=== PATIENT | female | born 1925 | race Caucasian/White ===

== ENCOUNTER 2016-10-15 10:44 | Emergency (ER) | payer MEDICARE ==
[~2016-10-15] VITALS: Ht 162.6 cm; Wt 68.2 kg
[~2016-10-15 10:44] MED LIST: ASPI-628 PO; ATRV10T PO; CITA20TA11 PO; DONE5TAB4 PO; GLPZ5T PO; HYDR-4003 PO; HYDR25TA4 PO; METO-274 PO; PRE20 PO; WARF2.5T82 PO; ZIT250 PO
[2016-10-15 10:48] VITALS: BP 119/74; PULSE 104; RESP 20; O2SAT 95
--- NOTE | 2016-10-15 11:11 | ED.REPORT ---
HPI-Dyspnea / Wheezing Date of Service Oct 15, 2016 ED Provider: Frank Johnson MD Patient is an 89 year old female with a history of reactive airway disease, atrial fibrillation, and hypertension who presents to the ED complaining of shortness of breath onset a week ago. Associated symptoms include nausea, cough with yellow sputum, fatigue, sore throat, rhinorrhea, and ear pain. She denies chest pain, blood in the sputum, or vomiting. The patient reports that she has been using a nebulizer inhaler twice a day for the past two months. Per the patient's son, the patient has had more labored breathing and her symptoms are similar to when she had pneumonia last year. Patient is currently on anticoagulants. Nursing Notes Stated Complaint: BREATING Chief Complaint: Respiratory Complaints Nursing Notes Reviewed: Yes Allergies: Coded Allergies: Contrast Media (Verified Allergy, Unknown, 07/31/15) Penicillins (Verified Allergy, Unknown, 07/31/15) Sulfa (Sulfonamide Antibiotics) (Verified Allergy, Unknown, 07/31/15) aspirin (Verified Allergy, Unknown, 07/31/15) adult only-able to take baby aspirin iodine (Verified Allergy, Unknown, 12/06/14) lisinopril (Verified Allergy, Unknown, 12/06/14) Scheduled Aspirin (Aspir 81) 81 Mg Tablet.dr 81 MG PO DAILY Atorvastatin (Lipitor) 10 Mg Tab 20 MG PO DAILY Azithromycin (Zithromax) 250 Mg Tablet 250 MG PO DAILY Azithromycin (Zithromax (Z-Daniel)) 250 Mg Tablet 250 MG PO DIRECTED Take two tablets by mouth on day 1, then take one tablet daily on days 2 through 5. Citalopram (Citalopram) 20 Mg Tablet 20 MG PO DAILY Donepezil (Aricept) 5 Mg Tablet 5 MG PO DAILY Glipizide (Glipizide) 5 Mg Tablet 2.5 MG PO DAILY Hydrochlorothiazide (Hydrochlorothiazide) 25 Mg Tablet 25 MG PO DAILY Metoprolol Succinate ER (Metoprolol Succinate ER) 100 Mg Tab.er.24h 100 MG PO DAILY Prednisone (PredniSONE) 20 Mg Tablet 40 MG PO DAILY Prednisone (PredniSONE) 20 Mg Tablet 60 MG PO DAILY Warfarin Sodium (Warfarin Sodium) 2.5 Mg Tablet 1.25 MG PO [id number] Scheduled PRN Hydrocodone-Acetaminophen 5-325 mg (Hydrocodone-Acetaminophen 5-325 mg) 1 Each Tablet 1 EACH PO Q4 PRN PRN For Pain Promethazine DM Syrup (Promethazine DM Syrup) 118 Ml Syrup 5 ML PO HS PRN PRN For Cough Warfarin Sodium (Warfarin Sodium) 2.5 Mg Tablet 2.5 MG PO MONDAY PRN PRN Afib General Time Seen by MD: 11:06 Chief Complaint Shortness of breath Hx Obtained From: Patient, Son Arrived By: Walk-in Sudden in Onset?: No Onset Occurred: 1 week ago Symptom Duration: Since onset Recent Healthcare: No recent hospitalization, Recent doctor visit Similar Sx Previous: Yes Past Medical History Past Medical History hypothyroidism RA cataracts Reports: Congestive heart failure, Diabetes mellitus, Hyperlipidemia, Hypertension Reports: Atrial fibrillation, Depression, Urinary tract infection Past Surgical History Colon Reports: Hysterectomy Reports: Carpal tunnel Smoking History Former Smoker Social History Alcohol Use: "Social" Drug Use: Denies drug use Other Social History: Good social support, Lives in jail Ambulatory Status Walker Review of Systems Constitutional: Reports: Fatigue, Denies: Fever Ears / Nose / Throat: Reports: Earache bilateral, Sore throat Respiratory: Reports: Prod cough, yellow, Shortness of breath, Wheezing, Denies: Prod cough, bloody Cardiovascular: Denies: Chest pain Complete sys rev & neg: except as marked. GI: Reports: Nausea, Denies: Vomiting Physical Exam Initial Vital Signs Vital Signs (First) Date Time Temp Pulse Resp B/P Pulse Ox O2 Delivery O2 Flow Rate FiO2 10/15/16 10:48 36.7 104 20 119/74 95 Room Air Initial VS: Reviewed General/Constitutional: Awake, Alert, No acute distress Neck: Atraumatic, Supple, Full range of motion Respiratory / Chest: Atraumatic, No respiratory distress coarse breath sounds and wheezing bilaterally Cardiovascular: Heart rate NL, Regular rhythm, Heart sounds NL, No murmurs ENT: Atraumatic, Airway patent, Mucous membranes moist, Pharynx NL Abdomen: Atraumatic, Soft, Non-tender Back: Atraumatic, Full range of motion Lower Extremity / Pelvis / MS: Atraumatic, Full range of motion Skin: Atraumatic, Color NL, No rash, Warm, Dry Neurologic: Oriented X3, Speech NL, No motor deficits, No sensory deficits Head / Eyes: Atraumatic, Normocephalic, PERRL, EOMI Upper Extremity / MS: Atraumatic, Full range of motion Psychiatric: Affect NL, Mood NL Interpretation & Diagnostics ECG Interpretation ECG Interpretation: atrial fibrillation rate [address] changes Time: 11:51 Interpreted by: ED physician X-Ray Chest Interpretation Chest Xray Interpretation: IMPRESSION: Suspect COPD and smoking history. A source of cough is not seen. Moderately severe mid thoracic compression fracture is stable over time from mid last year. Dictated by: Shravan Salmon M.D. on 10/15/2016 at 13:02 Approved by: Shravan Salmon M.D. on 10/15/2016 at 13:03 View: Portable, 1 view Interpretation / Wet Read by: Interpret - Radiologist Re-Eval/Medical Decision Med Decision/Clinical Course 89-year-old female history of atrial fibrillation presenting with cough and congestion times one week. Chest x-ray is clear. Vital signs are stable. She was wheezing on exam which improved with nebulizer. She does have history of reactive airway disease and uses nebulizer at home. Patient felt much better. She did not want any labs. Declines labs. Patient be treated for bronchitis with steroids and Z-Daniel. Cough suppressant given - crisis counselor no driving or alcohol with cough suppressant. Return precautions given. Recommend follow up with primary doctor on Monday. Source of Hx: Old records Re-Evaluation/Progress : Time of Eval: 13:06 Re-Evaluation/Progress Note: Discussed lab results and treatment after discharge. The patient understands and agrees to the plan for discharge. All questions were addressed. Counseled Regarding: Diagnosis, Lab results, Need for follow-up, When/why to return to ED Discharge & Departure Impression: Primary Impression: Acute bronchitis Bronchitis organism: unspecified organism Qualified Code: J20.9 - Acute bronchitis, unspecified Disposition: Home Discharge Condition All VS Reviewed: Yes Condition: Stable Patient Instructions: Acute Bronchitis (ED) Additional Instructions: Take Z-pack, Prednisone and Azithromycin as prescribed. The medication may take a few hours to help but you should start feeling some relief. All of your labs looked normal. Follow up with your primary care physician next week. Please return to the emergency department if you develop any new or worsening symptoms including difficulty breathing, vomiting, nausea, or coughing up blood. Referrals: Lonnie Kelley DO (PCP) Scribe Attestation Portions of this note were transcribed by Dr. Elizabeth Rangel personally performed the history, physical exam and medical decision-making; I reviewed and confirmed the accuracy of the information in the transcribed note. Signed by: Leticia Sanchez, 10/15/16 and [id number]. copies to: Lonnie Kelley Ben M MD Oct 15, 2016 11:11 Edna De La Torre Oct 15, 2016 11:27
[2016-10-15] MEDS ORDERED: Albuterol-Ipratropium 3 mL Inhalation Solution NEB ONE (11:30)
[2016-10-15] MEDS ORDERED: predniSONE 20 mg Tablet PO ONE (11:30)
[2016-10-15 11:54] VITALS: PULSE 76; RESP 20; O2SAT 97
--- NOTE | 2016-10-15 13:04 | DRSVH ---
PROCEDURE: X-RAY CHEST, TWO VIEWS ([id number]) INDICATIONS: COUGH TECHNIQUE: 2 views of the chest were acquired. COMPARISON: [facility], CR, XR CHEST 1VW (PORTABLE), 05/31/2016, 16:30. [facility], CR, XR CHEST 2VW, 12/22/2015, 10:00. FINDINGS: Surgical changes and devices: None. Lungs and pleura: No pleural effusions or pneumothorax. Lungs are abnormal with a chronic interstit ial prominence and large lung volumes likely reflecting COPD. Mediastinum: Mediastinal contours are normal. Heart size is normal. Bones and chest wall: No suspicious bony abnormalities and there is a mid thoracic previously presen t moderately severe compression fracture. Soft tissues appear unremarkable. IMPRESSION: Suspect COPD and smoking history. A source of cough is not seen. Moderately severe mid thoracic compression fracture is stable over time from mid last year. Dictated by: Shravan Salmon M.D. on 10/15/2016 at 13:02 Approved by: Shravan Salmon M.D. on 10/15/2016 at 13:03
[2016-10-15] MEDS ORDERED: D-ME118S8 PO (13:12)
[2016-10-15] MEDS ORDERED: AZIT250T4 PO (13:12)
[2016-10-15] MEDS ORDERED: PRE20 PO (13:12)
[2016-10-15 13:29] VITALS: BP 142/64; PULSE 97; RESP 20; O2SAT 96
== END 2016-10-15 13:30 | disposition home or self-care (01) ==
LOC: SED 10:44
DX: J20.9 Acute bronchitis, unspecified (principal); I11.0 Hypertensive heart disease with heart failure; I50.9 Heart failure, unspecified; E11.59 Type 2 diabetes mellitus with other circulatory complications; E78.5 Hyperlipidemia, unspecified; E03.9 Hypothyroidism, unspecified; Z87.891 Personal history of nicotine dependence; Z79.82 Long term (current) use of aspirin; Z79.01 Long term (current) use of anticoagulants; Z79.899 Other long term (current) drug therapy; Z88.0 Allergy status to penicillin; Z88.2 Allergy status to sulfonamides; Z88.8 Allergy status to other drugs, medicaments and biological substances; Z91.041 Radiographic dye allergy status
CPT/HCPCS: 71020; 93005; 94664; 99284; J7620

== ENCOUNTER 2016-12-21 08:35 | Inpatient (IN) | payer MEDICARE ==
[2016-12-21] VITALS (13 sets, daily range): BP systolic 106–174; BP diastolic 49–98; PULSE 70–132; RESP 16–35; O2SAT 90–99
[~2016-12-21] VITALS: Ht 162.6 cm; Wt 69.5 kg
[~2016-12-21 08:35] MED LIST changes: +AZIT250T4 PO; +Albuterol-Ipratropium 3 mL Inhalation Solution ONE; +D-ME118S8 PO
--- NOTE | 2016-12-21 08:38 | ED.REPORT ---
HPI-General Illness Date of Service Dec 21, 2016 ED Provider: The patient is an 89 year old female with history of diabetes mellitus, hypertension, asthma, pneumonia, congestive heart failure, hyperlipidemia, atrial fibrillation, hypothyroidism, and rheumatoid arthritis, who was brought to the emergency department by EMS for shortness of breath and wheezing that began yesterday morning. She also complains of a dry cough. Her symptoms have gradually worsened since onset. She was given 125 solumedrol and a DuoNeb by medics. She has chronic lower extremity swelling but feels that her swelling is better than normal today. She denies productive cough, chest pain, fever, chills , nausea, vomiting, abdominal pain. She denies history of bloody clots or recent long periods of immobilization. Neonatal Icu Coordinator: Mary Nursing Notes Stated Complaint: ASTHMA EXACERBATION Chief Complaint: Respiratory Distress Nursing Notes Reviewed: Yes Allergies: Coded Allergies: Contrast Media (Verified Allergy, Unknown, 07/31/15) Penicillins (Verified Allergy, Unknown, 07/31/15) Sulfa (Sulfonamide Antibiotics) (Verified Allergy, Unknown, 07/31/15) aspirin (Verified Allergy, Unknown, 07/31/15) adult only-able to take baby aspirin iodine (Verified Allergy, Unknown, 12/06/14) lisinopril (Verified Allergy, Unknown, 12/06/14) Scheduled ([areds 2]) 1 CAPSULE PO DAILY Aspirin (Aspirin) 81 Mg Tablet 81 MG PO DAILY Atorvastatin (Lipitor) 10 Mg Tab 20 MG PO DAILY Budesonide/Formoterol 160-4.5 mcg Inh (Symbicort 160-4.5 mcg Inh) 120 Puff Inhaler 2 PUFFS INHALATION BID Citalopram (Citalopram) 20 Mg Tablet 20 MG PO DAILY Furosemide (Furosemide) 40 Mg Tablet 40 MG PO DAILY Glipizide (Glipizide) 5 Mg Tablet 2.5 MG PO DAILY Ipratropium/Albuterol Sulfate (Iprat-Albut 0.5-3(2.5) mg/3 mL Inhalant Soln) 3 Ml Ampul.neb 3 ML IH Q6 Levothyroxine (Levothyroxine) 88 Mcg Tablet 88 MCG PO DAILY Loratadine (Claritin) 10 Mg Capsule 10 MG PO DAILY Losartan Potassium (Losartan Potassium) 25 Mg Tablet 25 MG PO BID Magnesium Chloride (Slow-Mag) 64 Mg Tablet 1 TABLET PO BID Memantine (Namenda) 10 Mg Tablet 5 MG PO BID Metoprolol Succinate ER (Metoprolol Succinate ER) 100 Mg Tab.er.24h 100 MG PO DAILY Warfarin Sodium (Warfarin Sodium) 2.5 Mg Tablet 2.5 MG PO DAILY Scheduled PRN Albuterol HFA (Proair HFA) 8.5 Gm Hfa.aer.ad 2 PUFFS INHALATION QID PRN PRN For Shortness of Breath Hydrocodone-Acetaminophen 5-325 mg (Hydrocodone-Acetaminophen 5-325 mg) 1 Each Tablet 1 EACH PO Q4 PRN PRN For Pain General Time Seen by MD: 08:37 Chief Complaint Other (shortness of breath) Hx Obtained From: Patient, EMS Arrived By: Ambulance Sudden in Onset?: Yes Onset Occurred: 1 - 4 hours ago Symptom Duration: Since onset Severity: Current: No pain currently Severity: Maximum: No pain Recent Healthcare: No recent hospitalization Similar Sx Previous: Yes Past Medical History Past Medical History Notes: Neonatal Icu Coordinator: Dr. Hernandez Past Medical History Hypothyroidism RA Cataracts Reports: Asthma, Congestive heart failure, Diabetes mellitus, Hyperlipidemia, Hypertension Reports: Atrial fibrillation, Depression, Urinary tract infection Past Surgical History Colon surgery Reports: Hysterectomy Reports: Carpal tunnel Family History Noncontributory Smoking History Former Smoker Social History Alcohol Use: "Social" Drug Use: Denies drug use Other Social History: Good social support, Lives in group home, Local resident Ambulatory Status Walker Review of Systems Full Review of Systems Constitutional: Denies: Chills, Fever Respiratory: Reports: Non-productive cough, Shortness of breath, Wheezing, Denies: Prod cough, bloody, Prod cough, brown, Prod cough, clear, Prod cough , green, Prod cough, white, Prod cough, yellow Cardiovascular: Denies: Chest pain GI: Denies: Abdominal pain, Nausea, Vomiting Musculoskeletal: Reports: Extremity swelling Complete sys rev & neg: except as marked. Physical Exam Vital Signs Vital Signs Date Time Temp Pulse Resp B/P Pulse Ox O2 Delivery O2 Flow Rate FiO2 12/21/16 10:40 78 19 112/53 94 Room Air 12/21/16 09:07 78 25 135/49 94 Room Air 12/21/16 08:46 74 16 94 Room Air 12/21/16 08:36 37.4 70 28 138/78 95 Room Air Initial VS: Reviewed Head / Eyes: Atraumatic, Normocephalic, PERRL ENT: Mucous membranes moist, Conjunctiva normal, No scleral icterus Neck: Supple, Non-tender, Full range of motion Abdomen / GI: Soft, Non-tender, No guarding, No rebound, No distention Lymphatic: No lymphadenopathy Extremities: Vascular intact, Neuro intact, No swelling, No tenderness Skin: Warm, Dry, No cyanosis Neurologic: Alert, Oriented, Nonfocal Psychiatric: Mood/affect normal, Behavior normal, Normal thought content General/Constitutional: Awake, Alert, Cooperative Diminished Breath Sounds: Positive: Decreased bilateral Wheezing / Retractions: Positive: Prolonged exp phase, Wheezing expiratory No crackles. Cardiovascular: Heart rate NL, Regular rhythm, Heart sounds NL, No gallop, No murmurs, No rubs, Cap refill not delayed, Peripheral circulation NL Interpretation & Diagnostics Lab Results Interpretation Result Diagram: 12/21/16 0859 12/21/16 0859 Test 12/21/16 08:59 White Blood Count 11.0th/mm3 (3.8-10.1) Red Blood Count 3.80mil/mm3 (3.90-5.20) Hemoglobin 10.9g/dL (12.0-15.6) Hematocrit 34.9% (35.0-46.0) Mean Corpuscular Volume 91.8fL (81-100) Mean Corpuscular Hemoglobin 28.7pg (27.0-35.0) Mean Corpuscular Hemoglobin Concent 31.2% (32.0-37.0) Red Cell Distribution Width 14.9% (12.3-15.4) Platelet Count 259bil/L (150-400) Neutrophils (%) (Auto) 69.2% (40-74) Lymphocytes (%) (Auto) 21.0% (14-46) Monocytes (%) (Auto) 7.2% (4-12) Eosinophils (%) (Auto) 2.0% (0-5) Basophils (%) (Auto) 0.4% (0-3) Prothrombin Time 22.3sec (8.1-12.5) Prothromb Time International Ratio 2.05ratio Sodium Level 137mEq/L (134-144) Potassium Level 4.8mEq/L (3.5-5.2) Chloride Level 101mEq/L (97-108) Carbon Dioxide Level 18mmol/L (18-29) Blood Urea Nitrogen 45mg/dL (8-27) Creatinine 1.38mg/dL (0.57-1.00) Estimat Glomerular Filtration Rate 52mL/min (>59) Glucose Level 138mg/dL (60-99) Calcium Level 9.1mg/dL (8.5-10.1) Magnesium Level 1.9mg/dL (1.6-2.6) Total Bilirubin 0.9mg/dL (0.0-1.2) Aspartate Amino Transf (AST/SGOT) 112U/L (0-50) Alanine Aminotransferase (ALT/SGPT) 101U/L (0-32) Alkaline Phosphatase 117U/L (25-165) Troponin T < 0.010ug/L (0.0-0.011) Pro-B-Type Natriuretic Peptide 3160pg/mL (0-738) Total Protein 6.6g/dL (6.4-8.4) Albumin 3.8g/dL (3.4-5.0) ECG Interpretation ECG Interpretation: Sinus rhythm with a rate of 72 bpm Normal axis Normal intervals No ST segment elevations No acute T wave abnormalities No prior EKGs for comparison Time: 08:53 Interpreted by: ED physician X-Ray Chest Interpretation Chest Xray Interpretation: IMPRESSION: Hadley B-lines in the peripheral lower lungs, consistent with mild interstitial pulmonary edema, and suggesting early congestive heart failure. Dictated by: Franck Nicholson M.D. on 12/21/2016 at 9:06 Interpretation / Wet Read by: Interpret - Radiologist Re-Eval/Medical Decision Med Decision/Clinical Course The patient is an 89 year old female with history of diabetes mellitus, hypertension, asthma, pneumonia, congestive heart failure, hyperlipidemia, atrial fibrillation, hypothyroidism, and rheumatoid arthritis, who was brought to the emergency department by EMS for shortness of breath and wheezing that began yesterday morning. She also complains of a dry cough. Her symptoms have gradually worsened since onset. She was given 125 solumedrol and a DuoNeb by medics. Upon arrival to the emergency department the patient initially has an oxygen saturation in the high 80s on room air. She was placed on 2 L by nasal cannula. The patient was treated with [id number] DuoNeb and had improvement in her wheezing and work of breathing though she remained with significant respiratory difficulty and need for ongoing supplemental oxygen. LABS: leukocytosis 11 which is new, hct 34.9 stable, BUN 45, creatinine 1.38 both significantly elevated from baseline, K 4.8, mildly elevated transaminases , BNP 3160, troponin negative, INR 2.05 CXR: Hadley B-lines in the peripheral lower lungs, consistent with mild interstitial pulmonary edema, and suggesting early congestive heart failure. Given the patient's findings of pulmonary edema and elevated BNP she was treated with 40 mg of IV Lasix. The overall clinical picture seems consistent with concomitant exacerbation of her underlying asthma as well as congestive heart failure exacerbation. Given her age, comorbidities and need for oxygen the patient will be admitted to the hospitalist service for ongoing management. At this moment there is no evidence of acute coronary syndrome however she will likely require trending of her troponins. I see no evidence of pneumonia and therefore I have not started any IV antibiotics. Patient was discussed with hospitalist and accepted further management. She was transferred in stable condition. Source of Hx: Old records, EMS Time of Eval: 11:09 Re-Evaluation/Progress Note: Discussed plan for admission. All questions were addressed. Consultation : Referral / Consult Name: Miki Simon MD Consulted With: Hospitalist Requested Call at: 09:59 Call Returned at: 10:40 Type Disk Quality Control Supervisor: Will see patient, Agrees with eval, Agrees with plan, Accepts admit Counseled Regarding: Diagnosis, Lab results, Need for admission Discharge & Departure Primary Impression: Asthma exacerbation Additional Impressions: CHF (congestive heart failure) Congestive heart failure type: unspecified congestive heart failure type Congestive heart failure chronicity: unspecified congestive heart failure chronicity Qualified Code: I50.9 - Heart failure, unspecified Acute kidney injury Respiratory distress Hypoxia Disposition: ADMITTED TO HOSPITAL Discharge Condition All VS Reviewed: Yes Condition: Stable Referrals: Lonnie Kelley DO (PCP) Crit Care Except Billable Proc Time Spent: 75-104 minutes Services Performed: Patient management by me, Time spent at bedside, Reviewing test results, Reviewing imaging, Discussing patient care, Documentation in record, Time with fam/surrogate Scribe Attestation Portions of this note were transcribed by Sherry Liao. I, Dr. Reina personally performed the history, physical exam and medical decision-making; I reviewed and confirmed the accuracy of the information in the transcribed note. Signed by: Leticia Eubanks, 12/21/2016 at 1130. copies to: Lonnie Kelley Beck O MD Dec 21, 2016 08:38 Sherry Liao Dec 21, 2016 08:45
[2016-12-21] MEDS ORDERED: Albuterol-Ipratropium 3 mL Inhalation Solution NEB ONE (08:45)
[2016-12-21] MEDS ORDERED: Alum-Mag Hydrox-Simeth 30 mL Suspension PO PRN ×2 (09:00→11:15)
[2016-12-21] MEDS ORDERED: MethylprednisoLONE Sodium Succinate 62.5 mg/mL 2 mL Inj IVPUSH ONE (09:00)
[2016-12-21] MEDS ORDERED: Ondansetron 2 mg/mL 2 mL Inj IVPUSH PRN (09:00)
[2016-12-21 09:09] LABS: BASOPHILS % (AUTO) 0.4 % (0-3); MONOCYTES % (AUTO) 7.2 % (4-12); Mean Corpuscular Hemoglobin 28.7 pg (27.0-35.0); Mean Corpuscular Volume 91.8 fL (81-100); NEUTROPHILS % (AUTO) 69.2 % (40-74); Platelet Count 259 bil/L (150-400)
--- NOTE | 2016-12-21 09:09 | DRSVH ---
PROCEDURE: X-RAY CHEST ONE VIEW, PORTABLE ([id number]) INDICATIONS: 89 year-old female with asthma and wheezing. TECHNIQUE: One view of the chest was acquired. COMPARISON: [facility], XR CHEST 2VW, 10/20/2016, 14:22. [facility], CR, XR C HEST 2VW, 10/15/2016, 12:04. [facility], CR, XR CHEST 1VW (PORTABLE), 05/31/2016, 16:30. FINDINGS: Surgical changes and devices: None. Lungs and pleura: No pleural effusions or pneumothorax. Lungs are clear, except for subtle bibasila r peripheral interstitial opacities. Mediastinum: Mediastinal contours appear normal. Heart size is normal. There is aortic atheroscler osis. Bones and chest wall: No suspicious bony lesions. Overlying soft tissues appear unremarkable. IMPRESSION: Hadley B-lines in the peripheral lower lungs, consistent with mild interstitial pulmonary edema, and suggesting early congestive heart failure. Dictated by: Franck Nicholson M.D. on 12/21/2016 at 9:06 Approved by: Franck Nicholson M.D. on 12/21/2016 at 9:07
[2016-12-21 09:56] LABS: Magnesium 1.9 mg/dL (1.6-2.6)
[2016-12-21 09:58] LABS: TROPONIN T < 0.010 ug/L (0.0-0.011)
[2016-12-21] MEDS ORDERED: Furosemide 10 mg/mL 4 mL Inj IVPUSH ONE (10:00)
[2016-12-21 10:10] LABS: INR 2.05 ratio
[2016-12-21] MEDS ORDERED: ASPI-973 PO (10:40)
[2016-12-21] MEDS ORDERED: WARF2.5T82 PO (10:42)
[2016-12-21] MEDS ORDERED: NAM10 PO (10:43)
[2016-12-21] MEDS ORDERED: areds 2 PO (10:44)
[2016-12-21] MEDS ORDERED: FURO40TA4 PO (10:44)
[2016-12-21] MEDS ORDERED: LEVO88TA4 PO (10:45)
[2016-12-21] MEDS ORDERED: IPRA3AMP IH (10:45)
[2016-12-21] MEDS ORDERED: LOSA25TA21 PO (10:46)
[2016-12-21] MEDS ORDERED: LORA10CA PO (10:46)
[2016-12-21] MEDS ORDERED: SLO64 PO (10:47)
[2016-12-21] MEDS ORDERED: ALBU8.5H2 INHALATION (10:49)
[2016-12-21] MEDS ORDERED: SYMINH INHALATION (10:49)
[2016-12-21] MEDS ORDERED: Polyethylene Glycol (PEG) 17 Gm Powder PO PRN (11:15)
[2016-12-21] MEDS: MethylprednisoLONE Sodium Succinate 40 mg/mL Inj IVPUSH SCH ×2 (11:15→17:12)
[2016-12-21] MEDS ORDERED: Heparin 5,000 Unit/mL Inj SUBQ SCH (11:15)
--- NOTE | 2016-12-21 11:17 | NUR ---
ED [employer] note: D/A: [employer] encountered pt's son in ED [facility] who requests that staff are informed that pt has not had her daily meds, which include specifically metoprolol. [employer] contacted Cindy on [facility] who reports she will relay this information to pt's primary RN. P: [employer] relayed pt's son's concerns about pt's daily medication needs. ANNA Andino
--- NOTE | 2016-12-21 14:20 | NUR ---
Transfer to [facility] Pt. transferred via gurney to [facility] at 1200 in stable condition. Transferred herself to hospital bed but then became SOB. This resolved with rest. Vitals stable. 2L NC applied for comfort. Pt. states it is effective. Admit and med req completed by Admit RN in ED. Pt. oriented to call light and falls policy. Pt. is very pleasant and cooperative.
[2016-12-21] MEDS: Albuterol-Ipratropium 3 mL Inhalation Solution NEB SCH ×2 (14:54→21:49)
--- NOTE | 2016-12-21 15:08 | PCM.CONPHA ---
Objective Vital Signs Date Time Temp Pulse Resp B/P Pulse Ox O2 Delivery O2 Flow Rate FiO2 12/21/16 14:55 76 16 99 Nasal Cannula 2.00 12/21/16 12:00 36.4 72 21 109/66 97 Nasal Cannula 2.00 12/21/16 12:00 Supplement Oxygen 12/21/16 10:40 78 19 112/53 94 Room Air 12/21/16 09:07 78 25 135/49 94 Room Air 12/21/16 08:46 74 16 94 Room Air 12/21/16 08:36 37.4 70 28 138/78 95 Room Air Weight (Kilograms): 68.18 Height (Feet): 5 Height (Inches): 4 Test 12/21/16 08:59 White Blood Count 11.0th/mm3 (3.8-10.1) Red Blood Count 3.80mil/mm3 (3.90-5.20) Hemoglobin 10.9g/dL (12.0-15.6) Hematocrit 34.9% (35.0-46.0) Mean Corpuscular Volume 91.8fL (81-100) Mean Corpuscular Hemoglobin 28.7pg (27.0-35.0) Mean Corpuscular Hemoglobin Concent 31.2% (32.0-37.0) Red Cell Distribution Width 14.9% (12.3-15.4) Platelet Count 259bil/L (150-400) Neutrophils (%) (Auto) 69.2% (40-74) Lymphocytes (%) (Auto) 21.0% (14-46) Monocytes (%) (Auto) 7.2% (4-12) Eosinophils (%) (Auto) 2.0% (0-5) Basophils (%) (Auto) 0.4% (0-3) Prothrombin Time 22.3sec (8.1-12.5) Prothromb Time International Ratio 2.05ratio Sodium Level 137mEq/L (134-144) Potassium Level 4.8mEq/L (3.5-5.2) Chloride Level 101mEq/L (97-108) Carbon Dioxide Level 18mmol/L (18-29) Blood Urea Nitrogen 45mg/dL (8-27) Creatinine 1.38mg/dL (0.57-1.00) Estimat Glomerular Filtration Rate 52mL/min (>59) Glucose Level 138mg/dL (60-99) Calcium Level 9.1mg/dL (8.5-10.1) Magnesium Level 1.9mg/dL (1.6-2.6) Total Bilirubin 0.9mg/dL (0.0-1.2) Aspartate Amino Transf (AST/SGOT) 112U/L (0-50) Alanine Aminotransferase (ALT/SGPT) 101U/L (0-32) Alkaline Phosphatase 117U/L (25-165) Troponin T < 0.010ug/L (0.0-0.011) Pro-B-Type Natriuretic Peptide 3160pg/mL (0-738) Total Protein 6.6g/dL (6.4-8.4) Albumin 3.8g/dL (3.4-5.0) Assessment/Plan Assessment/Plan Date INR 2.05 INR change Warf Dose 2.5 René Norton Pharm.D Dec 21, 2016 15:08
[2016-12-21] MEDS ORDERED: Albuterol 2.5 mg/3 mL Inhalation Solution NEB PRN (16:00)
--- NOTE | 2016-12-21 16:43 | NUR ---
[facility] d/c. Patient is tolerating current diet well. Spoke with MD. Please reconsult [facility] with any new or worsening condition.
[2016-12-21] MEDS ORDERED: MeTOProlol 1 mg/mL 5 mL Inj IVPUSH ONE (17:35)
[2016-12-21 17:37] LABS: APPEARANCE,URINE CLEAR (CLEAR,HAZY); COLOR,URINE STRAW (YELLOW)
[2016-12-21 17:38] LABS: OCCULT BLOOD,URINE NEGATIVE (NEGATIVE); UROBILINOGEN,URINE NORMAL (NORMAL)
--- NOTE | 2016-12-21 17:51 | DRSVH ---
[facility] [address] [place] [address] Echocardiogram Report Name: LUCI BOCANEGRA LStudy Date: 12/21/2016 Height: 6 4 in Hospital Exam Location: [facility] Weight: 1 50 lb Gender: Female BSA: 1.7 m2 : 1925 Age: 89 yrs BP: 112/5 3 mmHg Reason For Study: CHF Performed By: Shell No Referring Physician: KULDIP BRUMFIELD Interpretation Summary Left ventricular systolic function is normal without focal wall motion abnormalities with the ejection fraction estimated to be 65-70%. There is mild concentric left ventricular hypertrophy but diastolic function could not be accurately assessed due to probable rapid atrial fibrillation. There has been no significant change since the previous study. The right ventricle is not well visualized but grossly appears normal in size with probable normal systolic function. There is moderate pulmonary hypertension with the right ventricular systolic pressure estimated at 48 mmHg assuming a right atrial pressure of 8 mm Hg, and is similar compared to the previous study. The left atrial size is normal and the right atrium is borderline dilated. Both are unchanged compared to the previous study. There is mild mitral regurgitation and mild to moderate tricuspid regurgitation that are unchanged compared to the previous study. There is no other significant valvular heart disease. The ascending aorta is at the upper limits of normal in size. The patient was in probable atrial fibrillation with heart rates between 105- 133 bpm during the exam which is faster compared to the previous study. Procedure: A two-dimensional transthoracic echocardiogram with color flow and Doppler was performed. The study quality was technically adequate. Comparison is made with the echocardiogram of 02/04/2016. The patient was in atrial fibrillation with heart rates between 105-133 bpm during the exam. This is faster compared to the previous study. Left Ventricle: The left ventricle is normal in size. There is mild concentric left ventricular hypertrophy. There is mild proximal septal thickening noted. There is no echo evidence for significant left ventricular outflow tract obstruction. Left ventricular systolic function is normal without focal wall motion abnormalities. The ejection fraction is estimated to be 65-70%. Diastolic function could not be accurately assessed due to atrial fibrillation. There has been no significant change since the previous study. Right Ventricle: The right ventricle is not well visualized. The right ventricle grossly appears normal in size with probable normal systolic function. Atria: The left atrial size is normal. The right atrium is borderline dilated. This is unchanged compared to the previous study. The interatrial septum is intact with no evidence for an atrial septal defect. Mitral Valve: There is moderate mitral annular calcification. There is mild mitral regurgitation. This is unchanged compared to the previous study. Aortic Valve: The aortic valve is trileaflet. The aortic valve is slightly calcified. The aortic valve opens well. There is no aortic valve stenosis. No aortic regurgitation is present. Tricuspid Valve: The tricuspid valve leaflets are thin and pliable. There is mild to moderate tricuspid regurgitation. This is unchanged compared to the previous study. There is moderate pulmonary hypertension. The right ventricular systolic pressure is estimated at 48 mmHg assuming a right atrial pressure of 8 mm Hg. This is similar compared to the previous study. Pulmonic Valve: The pulmonic valve is normal in structure and function. There is trace pulmonic regurgitation. There is no other significant valvular heart disease. Great Vessels: The aortic root is normal size. The ascending aorta is at the upper limits of normal in size. The IVC is dilated (diameter is greater than 2.1 cm) yet it collapses greater than 50% with a sniff. This suggests a right atrial pressure of 8 mm Hg. Pericardium/ Pleura There is no pericardial effusion. There is no pleural effusion. MMode/2D Measurements & Calculations LVIDd: 4.9 cm LA A2 area RA long axis LVOT diam IVSd: 1.4 cm LVPWd: 1.2 cm RA area Ao root diam LA A4 area : 13.7 cm asc Aorta Diam LA length (vol) RA vol: 32.3 ml RA LA vol: 39.7 ml : 18.7 mm2 LA vol index IVC diam: 2.1 cm LV mejia. diameter/BSA TAPSE: 1.3 cm (cm/m^2): 2.8 Doppler Measurements & Calculations Ao V2 max TR max popeye: 317.8 cm/sec Ao V2 mean LV V1 max PG : 120.0 cm/sec TR max P.5 mmHg : 88.2 cm/sec Ao max P.8 mmHgPA V2 max: 78.8 cm/sec Ao V2 VTI LV V1 VTI Ao mean PG PA mean P.3 mmHg : 17.4 cm LVOT Max Popeye HENNA(V,D): 2.0 cm2 : 86.0 cm/sec HENNA(I,D): 2.3 cm sev ratio: 0.83 PA V2 mean HENNA indexed to BSA : 54.0 cm/sec (cm^2/m^2): 1.3 Reading Physician:05:50 PM
--- NOTE | 2016-12-21 18:31 | NUR ---
Respiratory distress At 1720 Pt. pressed call light saying that she was having a hard time breathing. RR rate 30, BP elevated at 172/98. HR 120s. Oxygen bumped up to 6L and Monse Oneil RT called who came quickly with albuterol treatment. came to the room soon after to assess. Pt. continued to decline, BP remained elevated and HR trending up to 140s. Pt. placed on BIPAP at 1745 and tele. Within minutes pt. was feeling much better. IV metoprolol ordered and administered. By 1800 BP was 134/84, HR 111, oxygen 98%, RR 18. Continuous pulse ox on. Pt. continues to state her breathing feels good. Will continue to monitor.
--- NOTE | 2016-12-21 19:30 | NUR ---
Transfer P[facility] Report given to Chrsity Gallardo RN for patient transfer d/t respiratory distress RT Darrel here now to reassess status was on Bipap @ 60% showing 100% O2 Bipap remove tried to take a few bites of dinner managed ok with applesauce but when drinking milk it came back up, was able to give Coumadin and magnesium with applesauce and managed to keep down transfer via bed on NC with RT, son Jacky aware of transfer
[2016-12-21] MEDS: Magnesium Chloride SR 64 mg ER24 Tablet PO SCH ×2 (19:41→21:59)
--- NOTE | 2016-12-21 19:58 | PCM.HPMED ---
Subjective Date of Service Dec 21, 2016 Primary Provider: Admitting Physician: Miki Simon MD Primary Care Physician: Lonnie Kelley DO Attending Physician: Miki Simon MD Admit Status: From the Emergency Department, Admit to [facility] Team Chief Complaint: Shortness of breath History of Present Illness: Patient is a very pleasant 89-year-old white female with history of diabetes mellitus, hypertension, asthma, pneumonia, congestive heart failure, hyperlipidemia, atrial fibrillation, hypothyroidism and arthritis which I believe is probably osteoarthritis and not rheumatoid arthritis who was brought to [facility] emergency department for shortness of breath and wheezing that began the day prior to admission. The patient lives at the [facility] in [place] and yesterday the patient went to the dining room to eat with her walker and she became very short of breath. After eating she went back to her room and wanted to start her nebulizer but could not make it to her nebulizer. She then grabbed her "puffer" and went to bed. Usually that works, however this time it did not. She stayed in bed and due to shortness of breath called for help. An aide from [facility] came up and gave her a puff of a rescue inhaler. He then left. The patient did 3 nebulizer treatments thereafter went to bed and was still unable to breathe all night. This morning she called her son and was not able to get ahold of him initially aides from [facility] came up to her room and called EMS to bring her to the hospital she was unable to get ahold of her son and he agreed that she should do. She came to [facility] emergency room and was evaluated by Dr. Mina Reina who treated the patient with DuoNeb treatments 2 and patient received 125 mg of methylprednisolone, in route to the hospital, and Dr. Reina gave 40 mg Lasix IV. Patient's chest x-ray showed curly B-lines in the peripheral lower lungs consistent with mild interstitial pulmonary edema and suggesting early congestive heart failure. Patient's white blood cell count was the upper limit of normal at 11,000. Also, the patient had no fever and was given no antibiotics. However, due to the congestive heart failure, shortness of breath, and acute asthma exacerbation the patient was admitted to the hospitalist service for further evaluation treatment. Review of Systems: General: Patient during my interview is in no apparent distress. She has had no recent weight loss or fever, or chills, or diaphoresis or any other constitutional symptoms. She is feeling much better after being treated in the emergency room. HEENT: Patient has no headache, patient has no diplopia, patient has no changes in vision. She has had bilateral cataract surgery with lens implants and does wear corrective lenses. Patient has no problems with her ears, nose or throat. Patient has no known dental problems. She wears upper dentures. Patient has no pharyngitis or history of thrush. Neck: Patient has no stiffness in the neck. Patient has no lymphadenopathy. Patient has no other problems with their neck. Pulmonary: Patient has shortness of breath as mentioned in the history of present illness, no cough, no expectoration of sputum. Patient has no pleurisy. Patient has no chest pain. Patient has a history of asthma. Cardiovascular: Patient has no chest pain. Patient has no history of heart murmur. Patient has no palpitations. Patient has no history of myocardial infarction. Patient has no history of coronary artery disease. Patient does have atrial fibrillation. She is on rate control and warfarin therapy. Patient has a history of congestive heart failure. Patient follows up with Dr. Hernandez. Gastrointestinal: Patient has no history of hepatitis A, B or C. Patient has no history of peptic ulcer disease. Patient has no history of gastroesophageal reflux disease. Patient has no history of nausea, vomiting, or diarrhea. Patient has no history of hematemesis, hematochezia, or melena. Patient has no history of colitis. Renal: Patient has a history of a reduced glomerular filtration rate according to her son. No history of kidney stones. Genitourinary: Patient has had 2 separate bladder sling surgeries and has had incontinence problems. She does not like to wear depends and so wears pads according to her son and recently had a very bad urinary tract infection. Patient has had frequent urinary tract infections according to the patient. Musculoskeletal: Patient has no history of muscular skeletal problems other than what sounds like osteoarthritis rather than rheumatoid arthritis. Neurologic: Patient has no history of stroke, no history of seizure, no history of TIA. Psychiatric: Patient has a history of situational depression after her of 57 years . Patient went into severe depression and began drinking alcohol, even though she hardly ever drank alcohol in her life. Patient's son had her admitted to a [facility] bereavement/depression unit for 10 days. Patient was placed on citalopram at that time and has done quite well. He still has some anxiety. The remainder of the entire review of systems was reviewed with patient and is as mentioned above otherwise negative. Allergies Coded Allergies: Contrast Media (Verified Allergy, Unknown, 07/31/15) Penicillins (Verified Allergy, Unknown, 07/31/15) Sulfa (Sulfonamide Antibiotics) (Verified Allergy, Unknown, 07/31/15) aspirin (Verified Allergy, Unknown, 07/31/15) adult only-able to take baby aspirin iodine (Verified Allergy, Unknown, 12/06/14) lisinopril (Verified Allergy, Unknown, 12/06/14) Home Medications Scheduled ([areds 2]) 1 CAPSULE PO DAILY Aspirin (Aspirin) 81 Mg Tablet 81 MG PO DAILY Atorvastatin (Lipitor) 10 Mg Tab 20 MG PO DAILY Budesonide/Formoterol 160-4.5 mcg Inh (Symbicort 160-4.5 mcg Inh) 120 Puff Inhaler 2 PUFFS INHALATION BID Citalopram (Citalopram) 20 Mg Tablet 20 MG PO DAILY Furosemide (Furosemide) 40 Mg Tablet 40 MG PO DAILY Glipizide (Glipizide) 5 Mg Tablet 2.5 MG PO DAILY Ipratropium/Albuterol Sulfate (Iprat-Albut 0.5-3(2.5) mg/3 mL Inhalant Soln) 3 Ml Ampul.neb 3 ML IH Q6 Levothyroxine (Levothyroxine) 88 Mcg Tablet 88 MCG PO DAILY Loratadine (Claritin) 10 Mg Capsule 10 MG PO DAILY Losartan Potassium (Losartan Potassium) 25 Mg Tablet 25 MG PO BID Magnesium Chloride (Slow-Mag) 64 Mg Tablet 1 TABLET PO BID Memantine (Namenda) 10 Mg Tablet 5 MG PO BID Metoprolol Succinate ER (Metoprolol Succinate ER) 100 Mg Tab.er.24h 100 MG PO DAILY Warfarin Sodium (Warfarin Sodium) 2.5 Mg Tablet 2.5 MG PO DAILY Scheduled PRN Albuterol HFA (Proair HFA) 8.5 Gm Hfa.aer.ad 2 PUFFS INHALATION QID PRN PRN For Shortness of Breath Hydrocodone-Acetaminophen 5-325 mg (Hydrocodone-Acetaminophen 5-325 mg) 1 Each Tablet 1 EACH PO Q4 PRN PRN For Pain PMH Hypothyroidism Osteoarthritis (doubt RA) as suggested in the computerized record Cataracts: Asthma Congestive heart failure Diabetes mellitus Hyperlipidemia Hypertension Atrial fibrillation Depression Urinary tract infection Surgical History Patient had colon surgery to remove a tumor that this was a size of a grapefruit. The tumor turned out to be benign apparently The patient had a hysterectomy in Patient had carpal tunnel surgery of the right wrist. Patient also had a tonsillectomy patient had a cholecystectomy Patient had an appendectomy Patient had 2 bladder suspensions for cystoceles Patient had bilateral cataract surgery and lens placement surgery Patient had her wisdom teeth removed Patient had her upper teeth removed. Family History The patient's mother at 99 of old age at the dinner table The patient's father at 82 of complications of COPD/emphysema. Patient has a sister "Brianne" who of hepatitis C complications after a blood transfusion. Patient had a brother who shortly after having his knee replaced. Patient had another brother who of diffuse metastatic cancer of unknown origin Social History Hx Alcohol Use: Yes (The patient rarely drinks alcohol.) Hx Substance Use: No Hx Tobacco Use: Yes Smoking Status: Former Smoker (patient smoked approximately half a pack a day for many years but quit 20 years ago) Living Arrangement: Assisted Living (The patient lives at [facility] in [place].) Additional Information Patient was born in [place], [place]. She went to high school in [place], [place] and graduated high school. 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 Began working for [employer]. Patient then started working for a company which was brought out by [employer] for approximately 3 years. 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 That marriage only lasted 2 years and she him. She then found her new has been to him for 57 years. Patient has lived in various parts of [facility] and most recently now living at [facility] in [place], [place]. Her son Jacky sold his business to take care of his mother after his father's . The patient has 3 other sons who do not live in the area. She is 5 para 5 with 1 premature did not survive. Exam Vital Signs Vital Sign - Last Date Time Temp Pulse Resp B/P Pulse Ox O2 Delivery O2 Flow Rate FiO2 12/21/16 17:35 114 29 97 65 12/21/16 17:30 Nasal Cannula 4.00 12/21/16 17:22 174/96 12/21/16 12:00 36.4 Exam General: Patient during my interview and exam was resting comfortably laying supine in bed. She was in no apparent distress. HEENT: Head is atraumatic and normocephalic. Eyes: Pupils are equally round and reactive to light and accommodation. Extraocular muscles are intact. Sclera are white, anicteric. Subconjunctival mucosa is pink. Ears and nose are unremarkable. Oropharynx: There is no mucosal lesions, there is no thrush, there is no pharyngitis. Mucosa is dry however. Neck: Is supple, there are no nodes, or masses or tenderness. Chest: Is clear to auscultation and percussion. There are no rales, rhonchi, wheezes or rubs. Heart: Rate is tachycardic, rhythm is irregular. There is no murmur, rub or gallop. Although, heart tones are distant. Abdomen: Good bowel sounds are present. Abdomen is soft, nontender, no organomegaly or masses were appreciated. However, abdomen slightly distended and tympanitic to percussion Extremities: Are symmetrical and well perfused. There is no edema, there is no cellulitis, no rash. Neurologic: There are no focal neurological deficits. Cranial nerves II through XII are intact. There are no sensory or motor deficits. Psychiatric: Patients mood is calm and shows no sign of agitation. Genital: Deferred Rectal: Deferred Lab and Diagnostics Result Diagram: 12/21/16 0859 12/21/16 0859 Microbiology Urinalysis was unremarkable and culture was not indicated. Blood cultures are pending and sputum culture is pending and respiratory viral PCR panel is pending X-Rays, CTs and MRIs PROCEDURE: X-RAY CHEST ONE VIEW, PORTABLE ([id number]) INDICATIONS: 89 year-old female with asthma and wheezing. TECHNIQUE: One view of the chest was acquired. COMPARISON: [facility], XR CHEST 2VW, 10/20/2016, 14:22. [facility], CR, XR CHEST 2VW, 10/15/2016, 12:04. [facility], CR , XR CHEST 1VW (PORTABLE), 05/31/2016, 16:30. FINDINGS: Surgical changes and devices: None. Lungs and pleura: No pleural effusions or pneumothorax. Lungs are clear, except for subtle bibasilar peripheral interstitial opacities. Mediastinum: Mediastinal contours appear normal. Heart size is normal. There is aortic atherosclerosis. Bones and chest wall: No suspicious bony lesions. Overlying soft tissues appear unremarkable. IMPRESSION: Hadley B-lines in the peripheral lower lungs, consistent with mild interstitial pulmonary edema, and suggesting early congestive heart failure. Dictated by: Franck Nicholson M.D. on 12/21/2016 at 9:06 Approved by: Franck Nicholson M.D. on 12/21/2016 at 9:07 Cardiac Echo Impressions Echocardiogram Report Name: LUCI BOCANEGRA LStudy Date: 12/21/2016 Height: 6 4 in Hospital Exam Location: [facility] Weight: 1 50 lb Gender: Female BSA: 1.7 m2 : 1925 Age: 89 yrs BP: 112/5 3 mmHg Reason For Study: CHF Performed By: Shell No Referring Physician: MIKI SIMON Interpretation Summary Left ventricular systolic function is normal without focal wall motion abnormalities with the ejection fraction estimated to be 65-70%. There is mild concentric left ventricular hypertrophy but diastolic function could not be accurately assessed due to probable rapid atrial fibrillation. There has been no significant change since the previous study. The right ventricle is not well visualized but grossly appears normal in size with probable normal systolic function. There is moderate pulmonary hypertension with the right ventricular systolic pressure estimated at 48 mmHg assuming a right atrial pressure of 8 mm Hg, and is similar compared to the previous study. The left atrial size is normal and the right atrium is borderline dilated. Both are unchanged compared to the previous study. There is mild mitral regurgitation and mild to moderate tricuspid regurgitation that are unchanged compared to the previous study. There is no other significant valvular heart disease. The ascending aorta is at the upper limits of normal in size. The patient was in probable atrial fibrillation with heart rates between 105- 133 bpm during the exam which is faster compared to the previous study. Assessment & Plan Patient is a very pleasant 89-year-old white female with history of diabetes mellitus, hypertension, asthma, pneumonia, congestive heart failure, hyperlipidemia, atrial fibrillation, hypothyroidism and arthritis which I believe is probably osteoarthritis and not rheumatoid arthritis who was brought to [facility] emergency department for shortness of breath and wheezing that began the day prior to admission. The patient lives at the [facility] in [place] and yesterday the patient went to the dining room to eat with her walker and she became very short of breath. After eating she went back to her room and wanted to start her nebulizer but could not make it to her nebulizer. She then grabbed her "puffer" and went to bed. Usually that works, however this time it did not. She stayed in bed and due to shortness of breath called for help. An aide from [facility] came up and gave her a puff of a rescue inhaler. He then left. The patient did 3 nebulizer treatments thereafter went to bed and was still unable to breathe all night. This morning she called her son and was not able to get ahold of him initially aides from [facility] came up to her room and called EMS to bring her to the hospital she was unable to get ahold of her son and he agreed that she should do. She came to [facility] emergency room and was evaluated by Dr. Mina Reina who treated the patient with DuoNeb treatments 2 and patient received 125 mg of methylprednisolone, in route to the hospital, and Dr. Reina gave 40 mg Lasix IV. Patient's chest x-ray showed curly B-lines in the peripheral lower lungs consistent with mild interstitial pulmonary edema and suggesting early congestive heart failure. Patient's white blood cell count was the upper limit of normal at 11,000. Also, the patient had no fever and was given no antibiotics. However, due to the congestive heart failure, shortness of breath, and acute asthma exacerbation the patient was admitted to the hospitalist service for further evaluation treatment. # Acute asthma exacerbation, present at the time of admission. Active - Solu-Medrol 125 mg was given in the ambulance. We will continue same and also 60 mg IV every 8 hours - Continue DuoNeb SVN treatments - Check sputum culture and respiratory viral PCR panel - Treat congestive heart failure which is likely exacerbating her asthma. # Acute on chronic diastolic congestive heart failure, with atrial fibrillation with rapid ventricular response, present times admission. Active - After my visit patient became tachycardic and hypertensive and her son Jacky inform me that she did not take any of her a.m. medications. - Therefore, will give IV Solu-Medrol 5 mg IV now and placed based patient on BiPAP and transferred to the progressive care unit. - We will change oral Lasix to IV Lasix 40 mg IV twice a day - We will continue metoprolol 100 mg by mouth daily as at home - We will check echocardiogram - We will consider cardiology consultation. # Hypothyroidism - Continue replacement therapy - Check TSH level # Osteoarthritis (doubt RA) as suggested in the computerized record - Continue supportive care # Diabetes mellitus - Accu-Cheks before meals and at bedtime - Sliding scale insulin coverage - Continue Home medications with glipizide - Suspect blood sugars were difficult to control with high-dose steroid therapy on board # Hyperlipidemia - Continue atorvastatin - # Hypertension, present times admission and currently uncontrolled due to the fact the patient did not take any of her home medications today. - We will start metoprolol and losartan. - We will monitor closely in the PCC # Atrial fibrillation - Rate control - Warfarin per pharmacy for stroke prophylaxis # Depression and anxiety, present at the time of admission. Active - Continue citalopram - As patient did not receive her citalopram today will give a dose today she is very anxious. # History of multiple Urinary tract infections - Current urinalysis unremarkable and culture is not indicated. - Monitor closely. Disposition: Patient will be moved to the progressive care unit due to deterioration of condition after arrival to the medical observation care unit. Patient will be placed on BiPAP. Her atrophic fibrillation with rapid ventricular rate be controlled with IV metoprolol. Will begin her oral metoprolol in a.m. the patient will likely be here more than 2 midnights, therefore patient will be admitted as an inpatient. Pain Evaluation: Adequate Pain Control GI Prophylaxis: Not indicated VTE Prophylaxis: Theraputic Anticoag with Warfarin Resuscitation Status: DNR/DNI:Do Not Resuscitate/Intubate (Discussed with patient at length and she wishes to be a DO NOT RESUSCITATE/DO NOT INTUBATE.) Miki Simon MD Dec 21, 2016 19:57
[2016-12-21] MEDS: Heparin 5,000 Unit/mL Inj SUBQ SCH ×2 (20:30→21:59)
--- NOTE | 2016-12-21 20:30 | NUR ---
Admit: Pt transferred from [facility] second to increased resp. distress. Pt on NC during transport, tolerating well. No significant distress noted. Bipap re-initiated once in PCC room. Pt is alert and oriented. HR a-fib in the one teens. Heparin held, pt on coumadin. Discussed with pharmacist and lab levels are good so pharmacy dc'd heparin. Will continue to monitor pt closely.
[2016-12-21] MEDS ORDERED: Dextrose 10% 250 ML IV ONE (20:55)
[2016-12-21] MEDS: Fluticasone-Salmeterol 100-50 Inhaler INHALATION SCH (21:59)
[2016-12-21] MEDS: Furosemide 10 mg/mL 4 mL Inj IVPUSH SCH (21:59)
[2016-12-22] VITALS (12 sets, daily range): BP systolic 93–121; BP diastolic 55–66; PULSE 89–131; RESP 14–26; O2SAT 93–99
--- NOTE | 2016-12-22 | NUR ---
Pt did not receive 250 D10 bolus. Pt's blood sugar was already high, needing inuslin. Lung sounds with crackles at the bases with elevated BNP with resp. distress.
[2016-12-22] MEDS: MethylprednisoLONE Sodium Succinate 40 mg/mL Inj IVPUSH SCH ×3 (00:45→17:41)
[2016-12-22] MEDS: Albuterol-Ipratropium 3 mL Inhalation Solution NEB SCH ×4 (02:30→20:30)
[2016-12-22] MEDS: Insulin Human REGular 300 Unit/3 mL Inj SUBQ SCH ×4 (02:34→21:22)
[2016-12-22 03:58] LABS: BASOPHILS % (AUTO) 0.1 % (0-3); EOSINOPHILS % (AUTO) 0 % (0-5); MONOCYTES % (AUTO) 1.4 % (4-12); Mean Corpuscular Hemoglobin 29.2 pg (27.0-35.0); Mean Corpuscular Volume 91.8 fL (81-100); NEUTROPHILS % (AUTO) 93.2 % (40-74); Platelet Count 252 bil/L (150-400)
[2016-12-22 04:11] LABS: INR 1.77 ratio
[2016-12-22 04:43] LABS: Magnesium 1.8 mg/dL (1.6-2.6)
[2016-12-22] MEDS: Furosemide 10 mg/mL 4 mL Inj IVPUSH SCH ×2 (09:09→19:41)
[2016-12-22] MEDS: Fluticasone-Salmeterol 100-50 Inhaler INHALATION SCH ×2 (09:09→19:42)
[2016-12-22] MEDS: MeTOProlol XL 50 mg ER24 Tablet PO SCH (09:10)
[2016-12-22] MEDS: Magnesium Chloride SR 64 mg ER24 Tablet PO SCH ×2 (09:11→19:41)
--- NOTE | 2016-12-22 13:36 | PCM.PHAPRO ---
Progress Date of Service: Dec 22, 2016 Warfarin dosing Date Dec 22 INR 2.05 1.77 INR change -0.28 Warf Dose 2.5 2.5 Niyah Hernandez PharmD Dec 22, 2016 13:36
[2016-12-22] MEDS ORDERED: Insulin GLARgine 100 Unit/mL Syringe SUBQ ONE (15:05)
--- NOTE | 2016-12-22 15:07 | PCM.PNMED ---
Subjective Date of Service Dec 22, 2016 Subjective She feels somewhat better with regards to her shortness of breath. She is back on BiPAP having been somewhat fatigued this morning after being off for several hours. She denies a cough, chest pain, palpitations, or orthopnea. She has had some edema lately. She denies any fevers or chills. She has feels like she is improving. No abdominal pain. No overnight events other than BiPAP ventilation as needed Exam Vital Signs Vital Sign - Last Date Time Temp Pulse Resp B/P Pulse Ox O2 Delivery O2 Flow Rate FiO2 12/22/16 14:24 97 22 95 Room Air 12/22/16 11:59 36.7 93/55 3.00 12/22/16 10:09 30 Intake and Output 12/21/16 12/21/16 12/22/16 Cumulative From/Thru 15:00 23:00 07:00 12/21/16 08:36 - 12/22/16 05:18 Intake Total 540 ml 100 ml 640 ml Output Total 650 ml 350 ml 1000 ml Balance -110 ml -250 ml -360 ml Intake Oral 510 ml 100 ml 610 ml IV Total 30 ml 30 ml Output Urine Total 650 ml 350 ml 1000 ml # Bowel Movements 1 1 Exam Alert and oriented -3, no distress. Fluent speech, she is on BiPAP ventilation. Anicteric sclera. Lungs are clear with normal rate and effort Heart is regular without murmur gallop or rub Abdomen soft nontender, flat Extremities are with 1+ edema. Skin is free of rash or lesions. IVs and Medications Medications Reviewed: Medications were reviewed in detail Lab and Diagnostics Result Diagram: 12/22/16 0315 12/22/16 031 Microbiology Urinalysis was unremarkable and culture was not indicated. Blood cultures are pending and sputum culture is pending and respiratory viral PCR panel is pending X-Rays, CTs and MRIs PROCEDURE: X-RAY CHEST ONE VIEW, PORTABLE ([id number]) INDICATIONS: 89 year-old female with asthma and wheezing. TECHNIQUE: One view of the chest was acquired. COMPARISON: [facility], XR CHEST 2VW, 10/20/2016, 14:22. [facility], CR, XR CHEST 2VW, 10/15/2016, 12:04. [facility], CR , XR CHEST 1VW (PORTABLE), 05/31/2016, 16:30. FINDINGS: Surgical changes and devices: None. Lungs and pleura: No pleural effusions or pneumothorax. Lungs are clear, except for subtle bibasilar peripheral interstitial opacities. Mediastinum: Mediastinal contours appear normal. Heart size is normal. There is aortic atherosclerosis. Bones and chest wall: No suspicious bony lesions. Overlying soft tissues appear unremarkable. IMPRESSION: Hadley B-lines in the peripheral lower lungs, consistent with mild interstitial pulmonary edema, and suggesting early congestive heart failure. Dictated by: Franck Nicholson M.D. on 12/21/2016 at 9:06 Approved by: Franck Nicholson M.D. on 12/21/2016 at 9:07 Cardiac Echo Impressions Echocardiogram Report Name: LUCI BOCANEGRA LStudy Date: 12/21/2016 Height: 6 4 in Hospital Exam Location: [facility] Weight: 1 50 lb Gender: Female BSA: 1.7 m2 : 1925 Age: 89 yrs BP: 112/5 3 mmHg Reason For Study: CHF Performed By: Shell No Referring Physician: KULDIP BRUMFIELD Interpretation Summary Left ventricular systolic function is normal without focal wall motion abnormalities with the ejection fraction estimated to be 65-70%. There is mild concentric left ventricular hypertrophy but diastolic function could not be accurately assessed due to probable rapid atrial fibrillation. There has been no significant change since the previous study. The right ventricle is not well visualized but grossly appears normal in size with probable normal systolic function. There is moderate pulmonary hypertension with the right ventricular systolic pressure estimated at 48 mmHg assuming a right atrial pressure of 8 mm Hg, and is similar compared to the previous study. The left atrial size is normal and the right atrium is borderline dilated. Both are unchanged compared to the previous study. There is mild mitral regurgitation and mild to moderate tricuspid regurgitation that are unchanged compared to the previous study. There is no other significant valvular heart disease. The ascending aorta is at the upper limits of normal in size. The patient was in probable atrial fibrillation with heart rates between 105- 133 bpm during the exam which is faster compared to the previous study. Assessment & Plan Patient is a very pleasant 89-year-old white female with history of diabetes mellitus, hypertension, asthma, pneumonia, congestive heart failure, hyperlipidemia, atrial fibrillation, hypothyroidism and arthritis which I believe is probably osteoarthritis and not rheumatoid arthritis who was brought to [facility] emergency department for shortness of breath and wheezing that began the day prior to admission. The patient lives at the [facility] [place] [place] in [place] and yesterday the patient went to the dining room to eat with her walker and she became very short of breath. After eating she went back to her room and wanted to start her nebulizer but could not make it to her nebulizer. She then grabbed her "puffer" and went to bed. Usually that works, however this time it did not. She stayed in bed and due to shortness of breath called for help. An aide from [facility] came up and gave her a puff of a rescue inhaler. He then left. The patient did 3 nebulizer treatments thereafter went to bed and was still unable to breathe all night. This morning she called her son and was not able to get ahold of him initially aides from [facility] came up to her room and called EMS to bring her to the hospital she was unable to get ahold of her son and he agreed that she should do. She came to [facility] emergency room and was evaluated by Dr. Mina Reina who treated the patient with DuoNeb treatments 2 and patient received 125 mg of methylprednisolone, in route to the hospital, and Dr. Reina gave 40 mg Lasix IV. Patient's chest x-ray showed curly B-lines in the peripheral lower lungs consistent with mild interstitial pulmonary edema and suggesting early congestive heart failure. Patient's white blood cell count was the upper limit of normal at 11,000. Also, the patient had no fever and was given no antibiotics. However, due to the congestive heart failure, shortness of breath, and acute asthma exacerbation the patient was admitted to the hospitalist service for further evaluation treatment. (From Dr. Leonardo H&P ) #. Acute respiratory failure with hypoxia, POA and improving. Multifactorial but primarily related to diastolic heart failure. Continue diuresis and BiPAP as needed with a slow BiPAP wean. # Acute asthma exacerbation, present at the time of admission. Active and improving. - Solu-Medrol 125 mg was given in the ambulance. We will continue same and also 60 mg IV every 8 hours - Continue DuoNeb SVN treatments - Check sputum culture and respiratory viral PCR panel (negative) - Treat congestive heart failure which is likely exacerbating her asthma. # Acute on chronic diastolic congestive heart failure, with atrial fibrillation with rapid ventricular response, present times admission. Active improving - After my visit patient became tachycardic and hypertensive and her son Jacky inform me that she did not take any of her a.m. medications. - Therefore, will give IV Solu-Medrol 5 mg IV now and placed based patient on BiPAP and transferred to the progressive care unit. - We will change oral Lasix to IV Lasix 40 mg IV twice a day - We will continue metoprolol 100 mg by mouth daily as at home - We will check echocardiogram (diastolic dysfunction and elevated right sided pressures) -We will continue with diuresis and BiPAP as needed. #. Chronic fibrillation with rapid ventricular response, POA and improved with metoprolol orally. No change to current medical plan. Continue Coumadin per pharmacy. # Hypothyroidism - Continue replacement therapy - Check TSH level # Osteoarthritis (doubt RA) as suggested in the computerized record POA and stable, POA and stable - Continue supportive care # Diabetes mellitus 2, POA and uncontrolled. - Accu-Cheks before meals and at bedtime - Sliding scale insulin coverage - Continue Home medications with glipizide -Stop glipizide, start Lantus 55 at bedtime with correctional lispro. # Hyperlipidemia , POA and stable - Continue atorvastatin - # Hypertension, present times admission and currently uncontrolled due to the fact the patient did not take any of her home medications today. Improving. - We will start metoprolol and losartan. - We will monitor closely in the PCC # Depression and anxiety, present at the time of admission. Active and stable - Continue citalopram - As patient did not receive her citalopram today will give a dose today she is very anxious. # History of multiple Urinary tract infections, not currently active - Current urinalysis unremarkable and culture is not indicated. - Monitor closely. Disposition: Patient will be moved to the progressive care unit due to deterioration of condition after arrival to the medical observation care unit. Patient will be placed on BiPAP. Her atrophic fibrillation with rapid ventricular rate be controlled with IV metoprolol. Will begin her oral metoprolol in a.m. the patient will likely be here more than 2 midnights, therefore patient will be admitted as an inpatient. GI Prophylaxis: Not indicated VTE Prophylaxis: Theraputic Anticoag with Warfarin Resuscitation Status: DNR/DNI:Do Not Resuscitate/Intubate (Discussed with patient at length and she wishes to be a DO NOT RESUSCITATE/DO NOT INTUBATE.) Tristan Hart MD Dec 22, 2016 15:07
--- NOTE | 2016-12-22 15:15 | NUR ---
Social Work: Initial Assessment D: Per EMR review, pt is an 89 year old female admitted for Asthma Exacerbation/Congestive Heart Failure. Pt is [employer] with A[employer] supplement; pt has no LTC insurance or VA benefits. PCP is Lonnie Kelley DO. NOK is Jacky Tayloron, . Advanced directives completed and on chart. Readmit score is high, 4/8. SHREDDER/GRANULATOR OPERATOR met with pt at bedside. Sw role explained and contact info provided. Pt lives at the [facility]. Pt states that she does not receive much help but is on the assisted living side. The pt uses a 4WW at baseline, does not drive. Pt has a history at the [facility] and is willing to complete rehab if she is not able to return immediately to the [facility] side. Case Management notified [facility] of pt's admission. SHREDDER/GRANULATOR OPERATOR will provide access and coordinate discharge plan with [facility] pending MD order. A: Pt who lives at [facility]. P: Anticipate pt to discharge back to [facility]; SHREDDER/GRANULATOR OPERATOR to rule out whether pt will require Rehab versus return to [facility]. ANNA Gramajo Addendum: 12/22/16 at 1623 by ALEX NEAL Amended: Links added.
--- NOTE | 2016-12-22 17:14 | DRSVH ---
PROCEDURE: X-RAY ABDOMEN, ONE VIEW ([id number]) INDICATIONS: Abdominal Distention TECHNIQUE: One view of the abdomen acquired. COMPARISON: None. FINDINGS: Surgical changes and devices: None. Bowel: Bowel gas pattern is normal. Soft tissues: No suspicious abdominal calcifications. Visualized solid organ contours appear normal in size. Bones: No suspicious bony lesions. Multilevel degenerative change throughout the spine. IMPRESSION: Normal bowel gas pattern. Dictated by: Meliton NICOLE Interpreted: Gloria Quiroz MD on 12/22/2016 at 10:26 Approved by: Gloria Quiroz M.D. on 12/22/2016 at 17:12
--- NOTE | 2016-12-22 19:06 | NUR ---
AFIB/O2 No reports of chest pain/pressure/discomfort. Tele AFIB 90s-130s. No reports of SOB at rest, reports rare cough -- sputum sent. SPO2 mid 90s on 1L NC, took O2 off and found to be 93%. Requested to be placed on Bipap once today r/t fatigue. No reports of n/v, patient reports she is usually constipated at baseline. Reports abdominal bloating. Incontinent of urine, reports that she has little to no sensation of when she needs to void. Alert and oriented x3, PILLAI, reports full sensation (denies DM neuropathy).
[2016-12-22] MEDS ORDERED: Insulin GLARgine 100 Unit/mL Syringe SUBQ SCH (21:00)
[2016-12-23] VITALS (13 sets, daily range): BP systolic 108–133; BP diastolic 60–86; PULSE 70–128; RESP 18–25; O2SAT 92–96
[2016-12-23] MEDS: MethylprednisoLONE Sodium Succinate 40 mg/mL Inj IVPUSH SCH ×4 (00:30→23:48)
[2016-12-23 03:48] LABS: INR 2.6 ratio
[2016-12-23] MEDS: Albuterol-Ipratropium 3 mL Inhalation Solution NEB SCH ×4 (03:48→20:13)
[2016-12-23] MEDS: Insulin Human REGular 300 Unit/3 mL Inj SUBQ SCH ×4 (08:15→22:00)
[2016-12-23] MEDS: Fluticasone-Salmeterol 100-50 Inhaler INHALATION SCH ×2 (08:17→21:00)
[2016-12-23] MEDS: Furosemide 10 mg/mL 4 mL Inj IVPUSH SCH ×2 (08:18→20:57)
[2016-12-23] MEDS: MeTOProlol XL 50 mg ER24 Tablet PO SCH (08:21)
[2016-12-23] MEDS: Magnesium Chloride SR 64 mg ER24 Tablet PO SCH ×2 (08:23→20:30)
[2016-12-23] MEDS ORDERED: Insulin GLARgine 100 Unit/mL Syringe SUBQ ONE (10:30)
--- NOTE | 2016-12-23 10:57 | PCM.PHAPRO ---
Progress Date of Service: Dec 23, 2016 Warfarin dosing Date Dec 22-Dec 23 INR 2.05 1.77 2.60 INR change -0.28 0.83 Warf Dose 2.5 2.5 0.5 Niyah Hernandez PharmD Dec 23, 2016 10:57
--- NOTE | 2016-12-23 11:53 | PCM.PNMED ---
Subjective Date of Service Dec 23, 2016 Subjective Overnight: No acute event. No reports of chest pain/pressure/discomfort. Tele AFIB 90s-130s. No reports persistent cough and SOB. SPO2 mid 90s. This morning, patient states that she has had persistent cough that worsens her dyspnea, wheezing, and Afib. The cough is nonproductive and intermittent. When she is not coughing, she denies any symptoms. She also admits to chronic urinary incontinence. She denies any chest pain, nausea, vomiting, or headache. No increase in lower extremity swelling. Exam Vital Signs Vital Sign - Last Date Time Temp Pulse Resp B/P Pulse Ox O2 Delivery O2 Flow Rate FiO2 12/23/16 10:57 108 20 94 Nasal Cannula 2.00 12/23/16 07:47 36.7 133/86 12/22/16 10:09 30 Intake and Output 12/22/16 12/22/16 12/23/16 Cumulative From/Thru 15:00 23:00 07:00 12/21/16 08:36 - 12/23/16 06:27 Intake Total 810 ml 150 ml 1600 ml Output Total 650 ml 1650 ml Balance 160 ml 150 ml -50 ml Intake Oral 810 ml 150 ml 1570 ml IV Total 30 ml Output Urine Total 650 ml 1650 ml # Voids 3 3 # Bowel Movements 1 Exam General:Alert and oriented x3, no distress. Fluent speech, she is saturating well on NC. HEENT: NCAT. PERRLA, EOMI. Anicteric sclera. Necl: supple, no JVD noted, no lymphadenopathy. Lungs: diffuse expiratory wheezes. No rales appreciated. Normal rate and effort Heart: tachycardia, heart sound distant due to body habitus and diffuse wheezes. Abdomen: soft, nontender, nondistended, active bowel sound. Extremities: 1+ pitting edema in bilateral LE, which is chronic per the patient. Skin: free of rash or lesions. IVs and Medications Medications Reviewed: Medications were reviewed in detail Lab and Diagnostics Result Diagram: 12/22/1631412/22/16314 Microbiology Urinalysis was unremarkable and culture was not indicated. Blood cultures are pending and sputum culture is pending and respiratory viral PCR panel is pending X-Rays, CTs and MRIs PROCEDURE: X-RAY CHEST ONE VIEW, PORTABLE ([id number]) INDICATIONS: 89 year-old female with asthma and wheezing. TECHNIQUE: One view of the chest was acquired. COMPARISON: [facility], CR, XR CHEST 2VW, 10/20/2016, 14:22. [facility], CR, XR CHEST 2VW, 10/15/2016, 12:04. [facility], CR , XR CHEST 1VW (PORTABLE), 05/31/2016, 16:30. FINDINGS: Surgical changes and devices: None. Lungs and pleura: No pleural effusions or pneumothorax. Lungs are clear, except for subtle bibasilar peripheral interstitial opacities. Mediastinum: Mediastinal contours appear normal. Heart size is normal. There is aortic atherosclerosis. Bones and chest wall: No suspicious bony lesions. Overlying soft tissues appear unremarkable. IMPRESSION: Hadley B-lines in the peripheral lower lungs, consistent with mild interstitial pulmonary edema, and suggesting early congestive heart failure. Dictated by: Franck Nicholson M.D. on 12/21/2016 at 9:06 Approved by: Franck Nicholson M.D. on 12/21/2016 at 9:07 Cardiac Echo Impressions Echocardiogram Report Interpretation Summary Left ventricular systolic function is normal without focal wall motion abnormalities with the ejection fraction estimated to be 65-70%. There is mild concentric left ventricular hypertrophy but diastolic function could not be accurately assessed due to probable rapid atrial fibrillation. There has been no significant change since the previous study. The right ventricle is not well visualized but grossly appears normal in size with probable normal systolic function. There is moderate pulmonary hypertension with the right ventricular systolic pressure estimated at 48 mmHg assuming a right atrial pressure of 8 mm Hg, and is similar compared to the previous study. The left atrial size is normal and the right atrium is borderline dilated. Both are unchanged compared to the previous study. There is mild mitral regurgitation and mild to moderate tricuspid regurgitation that are unchanged compared to the previous study. There is no other significant valvular heart disease. The ascending aorta is at the upper limits of normal in size. The patient was in probable atrial fibrillation with heart rates between 105- 133 bpm during the exam which is faster compared to the previous study. Assessment & Plan 89-year-old white female with history of diabetes mellitus, hypertension, asthma , pneumonia, congestive heart failure, hyperlipidemia, atrial fibrillation, hypothyroidism and arthritis presenting to [facility] for shortness of breath and wheezing that began the day prior to admission. Currently receiving treatment for congestive heart failure and acute asthma exacerbation. Acute respiratory failure with hypoxia, POA and improving. -Multifactorial, likely related to asthma exacerbation and diastolic heart failure. -Continue diuresis and BiPAP as needed with a slow BiPAP wean. Acute asthma exacerbation, present at the time of admission. Active and improving. - Solu-Medrol 125 mg was given in the ambulance. We will continue same and also 60 mg IV every 8 hours - Continue DuoNeb SVN treatments - Sputum and blood cultures show no growth in the last 24 hours. Acute on chronic diastolic congestive heart failure, with atrial fibrillation with rapid ventricular response, present times admission. Active improving -Echo reveals normal systolic function with EF 65-70%, and diastolic function could not be accurately assessed due to probable rapid atrial fibrillation. -Continue Lasix 40 mg IV twice a day. She is currently -50 fluid balance. Continue strict I/O. -Continue metoprolol 100 mg by mouth daily as at home. -We will continue with diuresis and BiPAP as needed. Chronic fibrillation with rapid ventricular response, POA. -Continue home dose of Metoprolol 100mg daily. -Because her HR has been in the 100-120s, will add Diltiazem IV PRN HR>110. -Continue Telemetry monitoring. -Continue Coumadin per pharmacy. INR therapeutic. Hypothyroidism, chronic. -Continue replacement therapy -TSH is a little low, but will defer to outpatient to adjust her dose. Osteoarthritis (doubt RA) as suggested in the computerized record, chronic and stable. -Continue supportive care Diabetes mellitus 2, POA and uncontrolled. -A1c 6.4 -Elevated BG could be partly due to steroid therapy. -Accu-Cheks before meals and at bedtime -Increase Lantus from 5 to 7 unites at bedtime. -Continue low insulin correctional scale. -Hold home glipizide. Hyperlipidemia , POA and stable - Continue atorvastatin Hypertension, present times admission and currently uncontrolled due to the fact the patient did not take any of her home medications today. Improving. - We will continue metoprolol and losartan. - We will monitor closely in the [facility] Depression and anxiety, present at the time of admission. Active and stable - Continue citalopram History of multiple Urinary tract infections, not currently active - Current urinalysis unremarkable and culture is not indicated. - Monitor closely. Disposition: Given the complexity of her medical issues, patient will likely be here more than 2 midnights, therefore patient will be admitted as an inpatient. Dispo: pending discharge planning. Patient will like be here for a few more days. Pain Evaluation: Adequate Pain Control GI Prophylaxis: Not indicated VTE Prophylaxis: Theraputic Anticoag with Warfarin Resuscitation Status: DNR/DNI:Do Not Resuscitate/Intubate (Discussed with patient at length and she wishes to be a DO NOT RESUSCITATE/DO NOT INTUBATE.) Attending Statement Patient seen and examined with house staff. Agree with all attached documentation. RolandaMarquise Kingston DO Dec 23, 2016 11:53 Tristan Hart MD Dec 26, 2016 07:41 Marquise Orantes DO Dec 23, 2016 11:53 # Hyperlipidemia , POA and stable - Continue atorvastatin - # Hypertension, present times admission and currently uncontrolled due to the fact the patient did not take any of her home medications today. Improving. - We will start metoprolol and losartan. - We will monitor closely in the PCC # Depression and anxiety, present at the time of admission. Active and stable - Continue citalopram - As patient did not receive her citalopram today will give a dose today she is very anxious. # History of multiple Urinary tract infections, not currently active - Current urinalysis unremarkable and culture is not indicated. - Monitor closely. Disposition: Patient will be moved to the progressive care unit due to deterioration of condition after arrival to the medical observation care unit. Patient will be placed on BiPAP. Her atrophic fibrillation with rapid ventricular rate be controlled with IV metoprolol. Will begin her oral metoprolol in a.m. the patient will likely be here more than 2 midnights, therefore patient will be admitted as an inpatient. Pain Evaluation: Adequate Pain Control GI Prophylaxis: Not indicated VTE Prophylaxis: Theraputic Anticoag with Warfarin Resuscitation Status: DNR/DNI:Do Not Resuscitate/Intubate (Discussed with patient at length and she wishes to be a DO NOT RESUSCITATE/DO NOT INTUBATE.) Marquise Orantes DO Dec 23, 2016 11:53 Resuscitation Status: DNR/DNI:Do Not Resuscitate/Intubate (Discussed with patient at length and she wishes to be a DO NOT RESUSCITATE/DO NOT INTUBATE.) Marquise Orantes DO Dec 23, 2016 11:53
[2016-12-23] MEDS ORDERED: MeTOProlol XL 50 mg ER24 Tablet PO ONE (15:05)
[2016-12-23] MEDS ORDERED: MeTOProlol 1 mg/mL 5 mL Inj IVPUSH ONE (15:25)
--- NOTE | 2016-12-23 15:39 | NUR ---
Evaluation completed. Please go to "Notes" then click on "Assessments and Notes" (bottom left corner of screen). Then select appropriate discipline tab on top of screen.
--- NOTE | 2016-12-23 15:50 | NUR ---
ARSALAN Attempted ARSALAN and patient was sleeping.
--- NOTE | 2016-12-23 17:03 | DRSVH ---
PROCEDURE: X-RAY BARIUM SWALLOW ESOPHAGUS ([id number]) INDICATIONS: Aspiration with food COMPARISON: None. FINDINGS: Function: Trace laryngeal penetration. Severe esophageal dysmotility is present.. Morphology: Air-contrast images demonstrate normal mucosal morphology. Single contrast views show n o esophageal strictures, extrinsic mass effects. Small smooth walled distal esophageal posterior div erticulum was present. Limited images of the stomach demonstrate normal appearance. The attending p hysician was personally present in the room during the examination. IMPRESSION: 1. Trace laryngeal penetration. 2. Severe esophageal dysmotility. 3. Smooth-walled, posterior distal esophageal diverticulum. Dictated by: Meliton NICOLE Interpreted: Syd Avalos MD on 12/23/2016 at 16:36 Approved by: Syd Avalos M.D. on 12/23/2016 at 17:01
--- NOTE | 2016-12-23 17:20 | NUR ---
Respiratory Pt declined Tx at this time.
--- NOTE | 2016-12-23 19:32 | NUR ---
Aspiration Risk.. Noted with lunch to have persistent cough and spitting up of food after swallowing. Pt became SOB with audible expiratory wheeze. Placed in upright postion and made NPO. Dr Hart notified and swallow re evjuan requested. Seen by Speech and order for esophagram placed. Pt taken to Xray and mercedes procedure well. Remains npo for oral meds. Page placed to yellow team re pt being unable to take coumadin. HR remains afib, uncontrolleda at times with rates up to 130. Metorprolol 5 mg given per order.
[2016-12-23] MEDS: Diltiazem 5 mg/mL 5 mL Inj IVPUSH PRN ×2 (20:56→21:18)
[2016-12-23] MEDS ORDERED: Insulin GLARgine 100 Unit/mL Syringe SUBQ SCH (21:00)
--- NOTE | 2016-12-23 23:19 | NUR ---
Phone conversation with son Called pt's son Jacky regarding esophagram and results per pt's request. Discussed rate control with new BRISEYDA ponce, answered questions all questions regarding care. Jacky communicated understanding, no further questions at this time.
[2016-12-24] VITALS (13 sets, daily range): BP systolic 96–122; BP diastolic 62–85; PULSE 94–130; RESP 12–22; O2SAT 94–97
[2016-12-24 03:44] LABS: INR 3.19 ratio
[2016-12-24 04:36] LABS: Magnesium 1.8 mg/dL (1.6-2.6)
[2016-12-24] MEDS: Albuterol-Ipratropium 3 mL Inhalation Solution NEB SCH ×2 (05:05→11:00)
--- NOTE | 2016-12-24 06:23 | NUR ---
HR/O2/ Cardizem given x3 between [id number], rate normalized since that time, 100's-110's. Continues on strict NPO, oral meds held per discussion with . Ice chips for comfort. Maintains 93-97% on 3.5L NC, no bipap worn this shift.
[2016-12-24] MEDS: Diltiazem 5 mg/mL 5 mL Inj IVPUSH PRN ×2 (06:40→06:49)
--- NOTE | 2016-12-24 07:43 | PCM.PHAPRO ---
Progress Warfarin dosing WARFARIN DOSING PER PHARMACY [facility] RTM DFF Date Dec 22-Dec 23-Nov 24 INR 2.05 1.77 2.60 3.19 INR change -0.28 0.83 0.59 Warf Dose 2.5 2.5 0.5 0.5 Will dose a smaller dose today given current trend. -Blair Bernard, PharmD Blair Bernard Dec 24, 2016 07:42
[2016-12-24] MEDS: Fluticasone-Salmeterol 100-50 Inhaler INHALATION SCH ×2 (08:20→21:49)
[2016-12-24] MEDS: Magnesium Chloride SR 64 mg ER24 Tablet PO SCH ×2 (08:21→21:57)
[2016-12-24] MEDS: MeTOProlol XL 50 mg ER24 Tablet PO SCH (08:21)
[2016-12-24] MEDS: Insulin Human REGular 300 Unit/3 mL Inj SUBQ SCH ×4 (08:23→22:02)
[2016-12-24] MEDS: Furosemide 10 mg/mL 4 mL Inj IVPUSH SCH ×2 (09:12→21:52)
[2016-12-24] MEDS: MethylprednisoLONE Sodium Succinate 40 mg/mL Inj IVPUSH SCH ×2 (09:13→16:41)
[2016-12-24] MEDS ORDERED: MeTOProlol XL 50 mg ER24 Tablet PO ONE (14:20)
[2016-12-24] MEDS ORDERED: Insulin Human NPH-Reg 70-30 100 Unit/mL 3 mL Pen SUBQ ONE (14:25)
[2016-12-24] MEDS ORDERED: Potassium Chloride 20 mEq/15 mL 15mL Oral Soln PO ONE (14:25)
[2016-12-24] MEDS ORDERED: Diltiazem 5 mg/mL 5 mL Inj IVPUSH ONE (14:50)
[2016-12-24] MEDS ORDERED: Insulin Human NPH 100 Unit/mL Syringe SUBQ ONE (15:10)
[2016-12-24] MEDS ORDERED: Levalbuterol 1.25 mg/0.5mL Inhalation Solution NEB PRN (15:25)
--- NOTE | 2016-12-24 15:46 | PCM.PNMED ---
Subjective Date of Service Dec 24, 2016 Subjective Carli Woody is an 89-year-old woman with history of diabetes mellitus, hypertension, asthma, pneumonia, congestive heart failure, hyperlipidemia, atrial fibrillation, hypothyroidism and arthritis presenting to [facility] for shortness of breath and wheezing that began the day prior to admission. Currently receiving treatment for congestive heart failure and acute asthma exacerbation. Overnight: The patient's heart rate continued to be increased and she required multiple doses of IV diltiazem with short tern response. Today: The patient feels quite tired today when she exerts herself and notices worsening of her shortness of breath with exertion. She denies any chest pain or chest pressure. She does not have a cough but has noticed a persistent wheeze. The remainder of ROS is negative except as noted above. Exam Vital Signs Vital Sign - Last Date Time Temp Pulse Resp B/P Pulse Ox O2 Delivery O2 Flow Rate FiO2 12/24/16 12:21 36.7 130 21 121/75 94 Nasal Cannula 2.00 12/22/16 10:09 30 Intake and Output 12/23/16 12/23/16 12/24/16 Cumulative From/Thru 15:00 23:00 07:00 12/21/16 08:36 - 12/24/16 06:45 Intake Total 150 ml 50 ml 1800 ml Output Total 500 ml 650 ml 2800 ml Balance -350 ml -600 ml -1000 ml Intake Oral 150 ml 50 ml 1770 ml IV Total 30 ml Output Urine Total 500 ml 650 ml 2800 ml # Voids 3 6 # Bowel Movements 1 Exam General:Alert and oriented x3, no distress. Fluent speech, she is saturating well on NC. HEENT: NCAT. PERRLA, EOMI. Anicteric sclera. Necl: supple, JVD noted, no lymphadenopathy. Lungs: diffuse expiratory wheezes. No rales appreciated. Normal rate and effort Heart: tachycardia, heart sound distant due to body habitus and diffuse wheezes. Abdomen: soft, nontender, nondistended, active bowel sound. Extremities: 1+ pitting edema in bilateral LE, which is chronic per the patient. Skin: free of rash or lesions. IVs and Medications Medications Reviewed: Medications were reviewed in detail Lab and Diagnostics Result Diagram: 12/22/16 0315 12/24/16 0300 Microbiology Urinalysis was unremarkable and culture was not indicated. Blood cultures are pending and sputum culture is pending and respiratory viral PCR panel is pending X-Rays, CTs and MRIs X-RAY CHEST ONE VIEW, PORTABLE IMPRESSION: Hadley B-lines in the peripheral lower lungs, consistent with mild interstitial pulmonary edema, and suggesting early congestive heart failure. Dictated by: Franck Nicholson M.D. on 12/21/2016 at 9:06 Cardiac Echo Impressions Interpretation Summary Left ventricular systolic function is normal without focal wall motion abnormalities with the ejection fraction estimated to be 65-70%. There is mild concentric left ventricular hypertrophy but diastolic function could not be accurately assessed due to probable rapid atrial fibrillation. There has been no significant change since the previous study. The right ventricle is not well visualized but grossly appears normal in size with probable normal systolic function. There is moderate pulmonary hypertension with the right ventricular systolic pressure estimated at 48 mmHg assuming a right atrial pressure of 8 mm Hg, and is similar compared to the previous study. The left atrial size is normal and the right atrium is borderline dilated. Both are unchanged compared to the previous study.There is mild mitral regurgitation and mild to moderate tricuspid regurgitation that are unchanged compared to the previous study. There is no other significant valvular heart disease.The ascending aorta is at the upper limits of normal in size. The patient was in probable atrial fibrillation with heart rates between 105- 133 bpm during the exam which is faster compared to the previous study. Assessment & Plan 89-year-old white female with history of diabetes mellitus, hypertension, asthma , pneumonia, congestive heart failure, hyperlipidemia, atrial fibrillation, hypothyroidism and arthritis presenting to [facility] for shortness of breath and wheezing that began the day prior to admission. Currently receiving treatment for congestive heart failure and acute asthma exacerbation. Acute respiratory failure with hypoxia in the setting of pulmonary hypertension , multifactorial, POA and improving. -Multifactorial, likely related to asthma exacerbation, diastolic heart failure. -Continue diuresis and BiPAP as needed. Continue CPAP at night. -Patient would like benefit from sleep study and likely has MARILYNN diagnosis contributing to moderate pulmonary hypertension Acute asthma exacerbation likely due to URI, present at the time of admission. Active and improving. - Solu-Medrol 60 mg IV every 8 hours - Continue Ipratropium Q6H with Levalbuterol Q6H scheduled as well as Q2H PRN levalbuterol. - Sputum and blood cultures show no growth in the last 24 hours. Respiratory PCR pending. Acute on chronic diastolic congestive heart failure, with atrial fibrillation with rapid ventricular response, present times admission. Active improving -Continue Lasix 40 mg IV twice a day. Continue strict I/O. -Hold metoprolol in the setting of asthma exacerbation -We will continue with diuresis and BiPAP as needed. Chronic fibrillation with rapid ventricular response, POA. -Hold Levothyroxine for now. -Hold Metoprolol 100mg daily while in asthma exacerbation -One time dose of Cardizem 20 mg IV, if provides good response, schedule IV Cardizem pushes for now. Can restart metoprolol once asthma exacerbation resolves. -Switch DuoNeb and albuterol to Levalbuterol -Continue Telemetry monitoring. -Continue Coumadin per pharmacy. INR therapeutic. Hypothyroidism, chronic. -Hold in the setting of poorly controlled A Fib with overcorrected hypothyroidism. Osteoarthritis (doubt RA) as suggested in the computerized record, chronic and stable. -Continue supportive care Diabetes mellitus 2, POA. -A1c 6.4. Elevated BG likely partly due to steroid therapy. -Accu-Cheks before meals and at bedtime -Increase Lantus to 10 units at bedtime. Give one time 10 unit dose of NPH for continuing blood sugars above 200. -Continue low insulin correctional scale. -Hold home glipizide. Hyperlipidemia , POA and stable - Continue atorvastatin Hypertension. Resolved. - We will continue losartan. Depression and anxiety, present at the time of admission. Active and stable - Continue citalopram History of multiple Urinary tract infections, not currently active - Current urinalysis unremarkable and culture is not indicated. - Monitor closely. Dispo: pending discharge planning. Patient will like be here for a few more days. GI Prophylaxis: Not indicated VTE Prophylaxis: Theraputic Anticoag with Warfarin Resuscitation Status: DNR/DNI:Do Not Resuscitate/Intubate (Discussed with patient at length and she wishes to be a DO NOT RESUSCITATE/DO NOT INTUBATE.) Time spent 35 minutes Attending Statement I interviewed and examined the patient on rounds today. I agree with the assessment and plan as stated above. Arlen Madrid DO Dec 24, 2016 14:25 Remy Sanchez MD Dec 24, 2016 20:41
[2016-12-24] MEDS ORDERED: Levalbuterol 0.63 mg/3 mL Inhalation Solution NEB SCH ×2 (16:00)
[2016-12-24] MEDS: Levalbuterol 1.25 mg/0.5mL Inhalation Solution NEB SCH (20:26)
[2016-12-24] MEDS: Ipratropium 0.02% 0.5 mg/2.5 mL Inhalation Solution NEB SCH (20:26)
[2016-12-24] MEDS ORDERED: Insulin GLARgine 100 Unit/mL Syringe SUBQ SCH (21:00)
[2016-12-24] MEDS: Diltiazem 5 mg/mL 5 mL Inj IVPUSH SCH (21:50)
[2016-12-25] VITALS (15 sets, daily range): BP systolic 91–135; BP diastolic 43–90; PULSE 53–138; RESP 10–31; O2SAT 91–98
[2016-12-25] MEDS: MethylprednisoLONE Sodium Succinate 40 mg/mL Inj IVPUSH SCH ×3 (00:18→16:37)
[2016-12-25] MEDS: Diltiazem 5 mg/mL 5 mL Inj IVPUSH SCH ×2 (02:59→08:46)
[2016-12-25 03:30] LABS: INR 3.05 ratio
[2016-12-25 03:48] LABS: Magnesium 1.9 mg/dL (1.6-2.6); Phosphorus 3.7 mg/dL (2.5-4.9)
--- NOTE | 2016-12-25 05:07 | NUR ---
Cardiac/Resp/GI Patient in A-Fib this shift, HR 90-120 and occasionally HR would increase to 130's intermittently before Diltiazem IVP was due, O2 bleed in with CPAP this shift, patient was on 1L O2 and sats were between 88-91%, O2 increased to 2L and sats 92-96% at this time, tolerating nectar thick liquids well without choking, no distress noted, will continue to monitor. Addendum: 12/25/16 at 0514 by JOHN BURTON RN Amended: Links added.
[2016-12-25] MEDS ORDERED: Potassium Chloride 20 mEq/15 mL 15mL Oral Soln PO ONE (07:00)
--- NOTE | 2016-12-25 07:34 | PCM.PHAPRO ---
Progress Warfarin dosing WARFARIN DOSING PER PHARMACY [facility] RTM DFF DFF Date Dec 22Dec 23Nov 24-Dec 25-Dec INR 2.05 1.77 2.60 3.19 3.05 INR change -0.28 0.83 0.59 -0.14 Warf Dose 2.5 2.5 0.5 0.5 0.5 Slightly supratherapeutic with smaller dose given last evening. With downtrend noted, will continue with smaller dose of 0.5 mg this evening. Blair Bernard, PharmD Blair Bernard Dec 25, 2016 07:34
[2016-12-25] MEDS: Ipratropium 0.02% 0.5 mg/2.5 mL Inhalation Solution NEB SCH ×3 (08:01→20:59)
[2016-12-25] MEDS: Levalbuterol 1.25 mg/0.5mL Inhalation Solution NEB SCH ×3 (08:01→20:59)
[2016-12-25] MEDS: Insulin Human REGular 300 Unit/3 mL Inj SUBQ SCH ×2 (08:43→13:15)
[2016-12-25] MEDS: Fluticasone-Salmeterol 100-50 Inhaler INHALATION SCH ×2 (08:44→21:13)
[2016-12-25] MEDS: Furosemide 10 mg/mL 4 mL Inj IVPUSH SCH ×2 (08:48→20:30)
[2016-12-25] MEDS: Magnesium Chloride SR 64 mg ER24 Tablet PO SCH ×2 (08:54→21:13)
[2016-12-25] MEDS ORDERED: Glucose 40% Oral Gel 15 Gm Tube PO PRN (13:05)
[2016-12-25] MEDS ORDERED: Insulin Human NPH 100 Unit/mL Syringe SUBQ SCH (13:35)
[2016-12-25] MEDS ORDERED: Diltiazem CD 120 mg ER24 Capsule PO ONE (13:35)
--- NOTE | 2016-12-25 14:26 | PCM.PNMED ---
Subjective Date of Service Dec 25, 2016 Subjective Overnight: No acute event. Patient continued to be in Afib with HR 90-130. Today: Patient reports improvement of her SOB. She still has intermittent nonproductive cough and SOB, but improved. She denies any other symptoms, including CP, headache, nausea, or vomiting. She states the palpitations is her normal. Exam Vital Signs Vital Sign - Last Date Time Temp Pulse Resp B/P Pulse Ox O2 Delivery O2 Flow Rate FiO2 12/25/16 12:15 36.5 130 23 122/71 92 Nasal Cannula 3.00 12/22/16 10:09 30 Intake and Output 12/24/16 12/24/16 12/25/16 Cumulative From/Thru 15:00 23:00 07:00 12/21/16 08:36 - 12/25/16 06:06 Intake Total 400 ml 652 ml 2852 ml Output Total 1150 ml 500 ml 4450 ml Balance -750 ml 152 ml -1598 ml Intake Oral 400 ml 587 ml 2757 ml IV Total 65 ml 95 ml Output Urine Total 1150 ml 500 ml 4450 ml # Voids 2 8 # Bowel Movements 1 Exam General:Alert and oriented x3, no distress. Fluent speech, she is saturating well on NC. HEENT: NCAT. PERRLA, EOMI. Anicteric sclera. Necl: supple, Borderline JVD noted, no lymphadenopathy. Lungs: scattered expiratory wheezes with mild bibasilar rales. Normal rate and effort Heart: tachycardia, irregular irregular, heart sound distant due to body habitus and wheezes. Abdomen: soft, nontender, nondistended, active bowel sound. Extremities: trace edema in bilateral LE. Skin: free of rash or lesions. IVs and Medications Medications Reviewed: Medications were reviewed in detail Lab and Diagnostics Result Diagram: 12/22/16 0315 12/25/16 0240 Microbiology Urinalysis was unremarkable and culture was not indicated. Blood cultures are pending and sputum culture is pending and respiratory viral PCR panel is pending X-Rays, CTs and MRIs X-RAY CHEST ONE VIEW, PORTABLE IMPRESSION: Hadley B-lines in the peripheral lower lungs, consistent with mild interstitial pulmonary edema, and suggesting early congestive heart failure. Dictated by: Franck Nicholson M.D. on 12/21/2016 at 9:06 PROCEDURE: X-RAY BARIUM SWALLOW ESOPHAGUS IMPRESSION: 1. Trace laryngeal penetration. 2. Severe esophageal dysmotility. 3. Smooth-walled, posterior distal esophageal diverticulum. Dictated by: Meliton Benitez Mariza Interpreted: Syd Avalos MD on 12/23/2016 at 16 :36 Cardiac Echo Impressions Interpretation Summary Left ventricular systolic function is normal without focal wall motion abnormalities with the ejection fraction estimated to be 65-70%. There is mild concentric left ventricular hypertrophy but diastolic function could not be accurately assessed due to probable rapid atrial fibrillation. There has been no significant change since the previous study. The right ventricle is not well visualized but grossly appears normal in size with probable normal systolic function. There is moderate pulmonary hypertension with the right ventricular systolic pressure estimated at 48 mmHg assuming a right atrial pressure of 8 mm Hg, and is similar compared to the previous study. The left atrial size is normal and the right atrium is borderline dilated. Both are unchanged compared to the previous study.There is mild mitral regurgitation and mild to moderate tricuspid regurgitation that are unchanged compared to the previous study. There is no other significant valvular heart disease.The ascending aorta is at the upper limits of normal in size. The patient was in probable atrial fibrillation with heart rates between 105- 133 bpm during the exam which is faster compared to the previous study. Assessment & Plan 89-year-old white female with history of diabetes mellitus, hypertension, asthma , pneumonia, congestive heart failure, hyperlipidemia, atrial fibrillation, hypothyroidism and arthritis presenting to [facility] for shortness of breath and wheezing that began the day prior to admission. Currently receiving treatment for congestive heart failure and acute asthma exacerbation. Acute respiratory failure with hypoxia in the setting of pulmonary hypertension , multifactorial, POA and improving. -Multifactorial, likely related to asthma exacerbation, diastolic heart failure. -Continue diuresis and BiPAP as needed. Continue CPAP at night. -Patient would like benefit from sleep study as outpatient and likely has MARILYNN diagnosis contributing to moderate pulmonary hypertension Acute on chronic diastolic congestive heart failure, with atrial fibrillation with rapid ventricular response, present times admission. Active improving -Continue Lasix 40 mg IV twice a day. Continue strict I/O. -Hold metoprolol in the setting of asthma exacerbation. -We will continue with diuresis and BiPAP as needed. Acute asthma exacerbation likely due to URI, present at the time of admission. Active and improving. - Solu-Medrol 60 mg IV every 8 hours - Continue Ipratropium Q6H with Levalbuterol Q6H scheduled as well as Q2H PRN levalbuterol. - Sputum and blood cultures show no growth in the last 24 hours. Chronic fibrillation with rapid ventricular response, POA. -Hold Levothyroxine for now. -Hold Metoprolol 100mg daily while in asthma exacerbation and patient. -Patient was on Cardizem 20mg IV pushes yesterday. Cardiology consulted and recommended starting Esmolol drip. -Dr. Hernandez suspected that the patient's symptoms could be due to heart failure/pulmonary edema. -DuoNeb and albuterol were switched to Levalbuterol on 12/24. Will continue with Levalbuterol at this time. -Continue Telemetry monitoring. -Continue Coumadin per pharmacy. INR therapeutic. Severe esophageal dysmotility, as evidence by Barium study on 12/23/16. -Continue nectar thick diet per Speech. -Oral pills need to be crushed. Diabetes mellitus 2, POA. -A1c 6.4. Elevated BG likely partly due to steroid therapy. BG was up to 400 today. -Accu-Cheks before meals and at bedtime -D/C Lantus to 10 units at bedtime. Give one time 12 unit dose of NPH for BG of 400. Will start NPH 8 units Q8H. -Change low to high insulin correctional scale. -Hold home glipizide. Hypothyroidism, chronic. -Hold in the setting of poorly controlled A Fib with overcorrected hypothyroidism. Osteoarthritis (doubt RA) as suggested in the computerized record, chronic and stable. -Continue supportive care Hyperlipidemia , POA and stable - Continue atorvastatin Hypertension. Chronic. Controlled. - We will continue losartan. - Continue Furosemide 40mg IV BID. Depression and anxiety, present at the time of admission. Active and stable - Continue citalopram History of multiple Urinary tract infections, not currently active - Current urinalysis unremarkable and culture is not indicated. - Monitor closely. Dispo: pending discharge planning. Patient will like be here for a few more days. Pain Evaluation: Adequate Pain Control GI Prophylaxis: H2 safia VTE Prophylaxis: Theraputic Anticoag with Warfarin Resuscitation Status: DNR/DNI:Do Not Resuscitate/Intubate (Discussed with patient at length and she wishes to be a DO NOT RESUSCITATE/DO NOT INTUBATE.) Marquise Orantes DO Dec 25, 2016 14:25
[2016-12-25] MEDS: Esmolol 2,500 mg/250 mL NS 2,500,000 MCG in IV Premix 1 EACH IV SCH ×2 (16:15→19:50)
--- NOTE | 2016-12-25 16:20 | NUR ---
Social Work Note: Continued Discharge Planning Data& Assessment: Per Md pt is not medically ready for discharge at this time. PT eval pending due to pt BP.Pt still being followed by RT. SW met with pt at bedside to check in and assess for any unmet needs. Pt explained she is focusing on "getting better" and is unable to identify any needs at this time. SW to continue to follow for MD orders. Plan: Back to [facility] vs. [facility] pending PT eval and MD orders. SW to continue to follow. ANNA Alexander
--- NOTE | 2016-12-25 16:20 | NUR ---
[facility] Signed
[2016-12-25] MEDS: Insulin Human NPH 100 Unit/mL 3 mL Inj SUBQ SCH (16:23)
[2016-12-25] MEDS: Insulin LISPRO 300 Unit/3 mL Inj SUBQ SCH ×2 (16:23→21:34)
--- NOTE | 2016-12-25 19:37 | NUR ---
Afib.. remains in variable afib with rates up to the 130's. Started on Esmolol gtt and gtt has been titrated up in 50 mcgs increments and is currently at 200 mcgs/kg with HR in the 120 range. Has been up to the commode several times and mercedes activity well. Blood sugars have been uncontrolled and Dr Sanchez updated. NPH ordered and given. Pt is taking ordered diet well with minimal cough and choking noted.
[2016-12-25] MEDS ORDERED: Famotidine Inj 20 MG in IV Premix 1 EACH IV SCH (20:30)
[2016-12-26] VITALS (12 sets, daily range): BP systolic 90–123; BP diastolic 55–77; PULSE 78–129; RESP 16–25; O2SAT 89–99
[2016-12-26] MEDS: Insulin Human NPH 100 Unit/mL 3 mL Inj SUBQ SCH ×3 (00:30→18:13)
[2016-12-26] MEDS: MethylprednisoLONE Sodium Succinate 40 mg/mL Inj IVPUSH SCH ×3 (00:48→17:21)
[2016-12-26] MEDS: Esmolol 2,500 mg/250 mL NS 2,500,000 MCG in IV Premix 1 EACH IV SCH ×4 (01:33→20:39)
--- NOTE | 2016-12-26 03:33 | CONS ---
[address] [address] CONSULTATION REPORT PATIENT: LUCI BOCANEGRA : 1925 MR#: [id number] ADMIT: 12/21/2016 JOB ID: [id number] DATE OF SERVICE: 12/25/2016 CHIEF COMPLAINT: Shortness of breath. HISTORY OF PRESENT ILLNESS: The patient is an 89-year-old woman with chronic atrial fibrillation and diastolic dysfunction. She was admitted on December 21 with cough, shortness of breath and wheezing. The [facility]. She was very short of breath, and on admission was found to have atrial fibrillation with RVR. Management of her rapid ventricular response was complicated by medication intolerance and difficulty swallowing pills, with evidence of severe esophageal dysmotility and posterior distal esophageal diverticulum. The hospitalist physician has been managing her rapid ventricular response with intermittent pushes of diltiazem, and now Cardiology has been consulted to assist in management. PAST MEDICAL HISTORY: 1. Chronic atrial fibrillation. Managed with warfarin for stroke prevention and rate control via Toprol-XL 100 mg daily. 2. Hypertension. On losartan. 3. Diastolic dysfunction. 4. Hypomagnesemia. 5. Elevated pulmonary artery systolic pressure on most recent echocardiogram, December 21, 2016, at 48 mmHg. 6. Moderate obstructive lung disease, with very good bronchodilator response. Most recent pulmonary function testing June 28, 2016, demonstrated FEV1 68% predicted, FEV1/ FVC ratio 0.67. Residual volume is 86% predicted, and DLCO was 83% predicted. 7. Diabetes. On oral hypoglycemic only-most recent hemoglobin A1c was 7.5% as of October 06, 2015. 8. Hyperlipidemia-on Lipitor. Most recent lipids performed in the clinic on December 05, 2014, demonstrated total cholesterol 163, triglycerides 105, HDL 60, LDL 82. SOCIAL HISTORY: The patient lives in [place]. She rarely drinks alcohol. She is a former smoker, but quit 20 years ago. FAMILY HISTORY: Mom at 99 years of age suddenly. Father at 82 from COPD. Sister of hepatitis B. A brother shortly after knee replaced. Another brother of metastatic cancer of unknown origin. PAST SURGICAL HISTORY: 1. Colon surgery to remove a tumor, which turned out to be benign. 2. Hysterectomy. 3. Carpal tunnel surgery. 4. Tonsillectomy. 5. History of cholecystectomy. 6. Appendectomy. 7. Bladder suspension. 8. Cataract surgery. 9. [place] teeth removed. REVIEW OF SYSTEMS: The patient wears upper dentures. Shortness of breath but no cough. No sputum. No overt bleeding. Incontinence problems are still present. History of urinary tract infections. History of depression. Otherwise 10 point review of systems is negative. PHYSICAL EXAMINATION: Vital signs when I saw her showed heart rate of 130, temperature 36.6, blood pressure 91/58, satting 95% on 1 L nasal cannula. Very pleasant, elderly lady, somewhat short of breath. Has difficulty speaking in complete sentences. Eyes: No scleral icterus. Neck: Supple. No lymphadenopathy. No carotid bruits. Heart: Normal S1, S2. Irregularly irregular. No murmurs. Lungs with crackles at bases bilaterally. Abdomen is soft, positive bowel sounds. No hepatosplenomegaly. Extremities: Warm, well perfused. No clubbing, cyanosis, or edema. Skin: No rashes or lesions. CURRENT MEDICATIONS: In the hospital: 1. Esmolol drip. 2. Lispro sliding scale insulin. 3. Slow-Mag 64 mg twice a day. 4. Famotidine IV twice a day. 5. Coumadin dosed by the pharmacy. 6. Aspirin 81 mg daily. 7. 25 mg twice a day. 8. Lipitor 20 mg daily. 9. Lasix 40 IV b.i.d. 10. Methylprednisolone 60 mg IV q.8 h. 11. Albuterol metered-dose inhaler. 12. Xopenex nebulizer. 13. Celexa 20 mg daily. ASSESSMENT AND PLAN: In summary, this is an 89-year-old woman with acute decompensated heart failure in the setting of diastolic dysfunction. Her echo shows normal left ventricular (LV) size, wall thickness, wall motion, LV systolic function. Ejection fraction (EF) is 65-70%. No focal wall motion abnormalities and no significant valvular abnormalities are seen. Her troponin-T was negative x1. Her hematocrit has not been checked in a few days, and INR was most recently 3. We are going to try to work on rate control with esmolol drip and see if we can achieve that. I understand the patient is having a really hard time with pills, so we are going to try to achieve good rate control with drip. She has been in atrial fibrillation for a long time. Initial EKG was read as normal sinus rhythm, but upon closer inspection, I think on that particular EKG, her atrial fibrillation organized into flutter waves, are basically 2:1 conduction. I am not really sure why her rate control is so poor right now. I understand the hospitalist physician is concerned about thyroid over-replacement. At home, she takes levothyroxine 88 mcg daily, and I see that right now her thyroid medications are held. Because her TSH was low, I think it is reasonable to check free T4 and make sure we are not seeing a situation of sick euthyroid. We will go ahead and add it to her morning labs. Will add dig for better rate control and low threshold to add diltiazem drip if needed Thank you very much for the opportunity to evaluate her. FUAD
[2016-12-26 04:10] LABS: INR 4.09 ratio
--- NOTE | 2016-12-26 06:00 | NUR ---
HR/Esmolol gtt AT beginning of shift Esmolol gtt running at 200mcg/kg/min and HR in 120's. Gtt titrated up to 250mcg/kg/min but pt's BP decreased to 80's/50's, therefore gtt turned off for 1 hr. After one hr BP had recovered and gtt restarted at 125mcg/kg/hr, however HR sustained in 120's-130's and SBP sustained only in low 100's and high 90's, Cozaar and Lasix was therefore held and night hospitalist and Dr. Hernandez updated. Per Dr. Vale orders Esmolol gtt was left at 125mcg/kg/min and one PO dose Dig was administered and pt was made NPO in anticipation of AM cardioversion and pt was updated about plan. MN dose of insulin was held for BG of 161 due to pt's NPO status. Pt was asymptomatic during night and denies any pain.
[2016-12-26] MEDS: Insulin LISPRO 300 Unit/3 mL Inj SUBQ SCH ×4 (08:00→21:41)
[2016-12-26] MEDS: Levalbuterol 1.25 mg/0.5mL Inhalation Solution NEB SCH ×3 (09:02→21:10)
[2016-12-26] MEDS: Ipratropium 0.02% 0.5 mg/2.5 mL Inhalation Solution NEB SCH ×3 (09:02→21:10)
[2016-12-26] MEDS: Fluticasone-Salmeterol 100-50 Inhaler INHALATION SCH ×2 (09:20→21:35)
[2016-12-26] MEDS: Furosemide 10 mg/mL 4 mL Inj IVPUSH SCH (09:24)
[2016-12-26] MEDS: Magnesium Chloride SR 64 mg ER24 Tablet PO SCH ×2 (09:25→21:35)
--- NOTE | 2016-12-26 11:28 | PCM.PHAPRO ---
Progress Date of Service: Dec 26, 2016 Warfarin dosing Date Dec 22-Dec 23-Nov 24-Dec 25-Dec 26-Dec INR 2.05 1.77 2.60 3.19 3.05 4.09 INR change -0.28 0.83 0.59 -0.14 1.04 Warf Dose 2.5 2.5 0.5 0.5 0.5 Niyah Tuttle PharmD Dec 26, 2016 11:28
[2016-12-26] MEDS ORDERED: Diltiazem Inj 125 MG in 0.9% Sodium Chloride 100 ML, Pharmacy To Mix 1 EA IV SCH (11:50)
[2016-12-26] MEDS ORDERED: Insulin Human NPH 100 Unit/mL 3 mL Inj SUBQ SCH (12:00)
[2016-12-26] MEDS: Diltiazem 125 mg/125 mL D5W IV SCH ×2 (12:12)
--- NOTE | 2016-12-26 15:15 | PROG NOTE ---
[address] [address] PROGRESS NOTE PATIENT: LUCI BOCANEGRA : 1925 MR#: [id number] ADMIT: 12/21/2016 JOB ID: [id number] DATE: 12/26/2016 SUBJECTIVE: Despite increasing the esmolol up to 200 mcg/kg per minute rate remains uncontrolled this morning. Diltiazem drip was added yesterday. Digoxin was added as well and her rate seems to be responding to the mixture of all three drugs quite favorably. The patient says she has no chest pain but her breathing is "rough." OBJECTIVE: Vital signs: Temperature 36.4, blood pressure 105/59, up to 123/77, pulse 107, up to 130 beats per minute. Satting 89% to 99% on 0.5 up to 1 L nasal cannula. Very pleasant older lady in no apparent distress. Eyes: No scleral icterus. Neck supple. No carotid bruits. Heart is irregularly irregular. No murmurs. Lungs with crackles at bases bilaterally. Abdomen soft, positive bowel sounds. No hepatosplenomegaly. Extremities, warm well perfused. No clubbing, cyanosis, or edema. Skin: No rashes or lesions. LABORATORIES: Reviewed. We do not have a recent CBC and I will go ahead and order it. Glycemic control was subpar and I will discuss this with the hospitalist team. CURRENT MEDICATIONS: 1. Esmolol drip currently at 125 mcg/kg per minute. 2. Diltiazem drip 5 mg/hour. 3. Digoxin 0.125 mg daily. 4. Lispro nutritional dose. 5. Levothyroxine 88 mcg daily. 6. Magnesium chloride 64 mg daily. 7. Atorvastatin 20 mg daily. 8. Furosemide, dose changed to 40 mg once a day. 9. Claritin. 10. Citalopram 20 mg daily. 11. Aspirin 81 mg daily. 12. Solu-Medrol 60 mg IV q.8 h. 13. Advair 100/50 one puff by mouth twice a day. 14. Xopenex 1 nebulization every 8 hours as needed for shortness of breath. 15. Ipratropium bromide nebulizer. 16. Warfarin dosed by Pharmacy. 17. NPH 8 units q.8 h. 18. Xopenex. ASSESSMENT AND PLAN: This is a 76-year-old woman with atrial fibrillation with rapid ventricular response. We have never had this problem in outpatient setting before. She normally has atrial fibrillation and it appears to be basically chronic atrial fibrillation. She is doing fine usually with rate control on 100 mg daily yet now she presents with chronic obstruction pulmonary disease exacerbation and her rate is uncontrolled. The plan for this patient is to continue aggressive attempts at rate control to avoid the eventuality of GIANCARLO and cardioversion as much as possible. I think rhythm control strategy. may fail because she has had chronic atrial fibrillation so I think rate control is a better strategy, so today, I added calcium channel safia to her maximum tolerated dose of esmolol and her digoxin. If she does well on that combination, then tomorrow will change her to Toprol-XL and diltiazem 360 mg daily as well as digoxin. If, unfortunately, her rate remains uncontrolled, then she would benefit from potentially GIANCARLO and cardioversion versus EP consultation for evaluation of dual-chamber permanent pacemaker placement and AV junction ablation. Thank you very much for the opportunity to evaluate this patient and I gave sign-out to my partner, Dr. Sandhu.
--- NOTE | 2016-12-26 16:52 | PCM.PNMED ---
Subjective Date of Service Dec 26, 2016 Subjective Overnight, patient's BP decreased to 80s/50s on the Esmolol drip so it was off for an hour. Her BP recovered and gtt restarted at 125mcg/kg/hr. HR sustained in 120s-130s. Cozaar and Lasix were held due to low BP. Dr. Hernandez recommended a dose of Dig with plan for AM cardioversion and pt was updated about plan. MN dose of insulin was held for BG of 161 due to pt's NPO status. Patient was otherwise asymptomatic during night and denies any pain. This morning, patient reports that her breathing is improving. She is saturating well at room air with no distress. She admits to intermittent bouts of cough that makes the SOB and palpitations worse, but she has no other complaint. Exam Vital Signs Vital Sign - Last Date Time Temp Pulse Resp B/P Pulse Ox O2 Delivery O2 Flow Rate FiO2 12/26/16 16:25 36.6 109 20 90/55 91 Room Air 12/26/16 09:38 0.50 12/25/16 19:58 30 Intake and Output 12/25/16 12/25/16 12/26/16 Cumulative From/Thru 15:00 23:00 07:00 12/21/16 08:36 - 12/26/16 06:14 Intake Total 500 ml 846 ml 4198 ml Output Total 850 ml 5300 ml Balance -350 ml 846 ml -1102 ml Intake Oral 400 ml 200 ml 3357 ml IV Total 100 ml 646 ml 841 ml Output Urine Total 850 ml 5300 ml # Voids 3 2 13 # Bowel Movements 1 Exam General:Alert and oriented x3, no distress. Fluent speech, she is saturating well at room air. HEENT: NCAT. PERRLA, EOMI. Anicteric sclera. Necl: supple, Borderline JVD noted, no lymphadenopathy. Lungs: significant improvement with very mild bibasilar rales. No wheezes or rhonchi noted. Normal rate and effort Heart: tachycardia, irregular irregular, heart sound distant due to body habitus. Abdomen: soft, nontender, nondistended, active bowel sound. Extremities: trace edema in bilateral LE. Skin: free of rash or lesions. IVs and Medications Medications Reviewed: Medications were reviewed in detail Lab and Diagnostics Result Diagram: 12/22/16 0315 12/26/16 0325 Microbiology Urinalysis was unremarkable and culture was not indicated. Blood cultures are pending and sputum culture is pending and respiratory viral PCR panel is pending X-Rays, CTs and MRIs X-RAY CHEST ONE VIEW, PORTABLE IMPRESSION: Hadley B-lines in the peripheral lower lungs, consistent with mild interstitial pulmonary edema, and suggesting early congestive heart failure. Dictated by: Franck Nicholson M.D. on 12/21/2016 at 9:06 PROCEDURE: X-RAY BARIUM SWALLOW ESOPHAGUS IMPRESSION: 1. Trace laryngeal penetration. 2. Severe esophageal dysmotility. 3. Smooth-walled, posterior distal esophageal diverticulum. Dictated by: Meliton Benitez RRA Interpreted: Syd Avalos MD on 12/23/2016 at 16 :36 Cardiac Echo Impressions Interpretation Summary Left ventricular systolic function is normal without focal wall motion abnormalities with the ejection fraction estimated to be 65-70%. There is mild concentric left ventricular hypertrophy but diastolic function could not be accurately assessed due to probable rapid atrial fibrillation. There has been no significant change since the previous study. The right ventricle is not well visualized but grossly appears normal in size with probable normal systolic function. There is moderate pulmonary hypertension with the right ventricular systolic pressure estimated at 48 mmHg assuming a right atrial pressure of 8 mm Hg, and is similar compared to the previous study. The left atrial size is normal and the right atrium is borderline dilated. Both are unchanged compared to the previous study.There is mild mitral regurgitation and mild to moderate tricuspid regurgitation that are unchanged compared to the previous study. There is no other significant valvular heart disease.The ascending aorta is at the upper limits of normal in size. The patient was in probable atrial fibrillation with heart rates between 105- 133 bpm during the exam which is faster compared to the previous study. Assessment & Plan 89-year-old white female with history of diabetes mellitus, hypertension, asthma , pneumonia, congestive heart failure, hyperlipidemia, atrial fibrillation, hypothyroidism and arthritis presenting to [facility] for shortness of breath and wheezing that began the day prior to admission. Currently receiving treatment for congestive heart failure and acute asthma exacerbation. Chronic fibrillation with rapid ventricular response, POA. -Levothyroxine were hold due to concern of worsening her HR. However, Dr. Hernandez restarted it today. -Appreciate cardiology's input. The plan is to continue with aggressive rate control. Patient is currently on maximum rate control medications with both Diltiazem and Esmolol gtt. -2 doses of Digoxin were given today. -If she does well on these medications, then tomorrow will change her to Toprol- XL and diltiazem 360 mg daily as well as digoxin. If, unfortunately, her rate remains uncontrolled, then she would benefit from potentially GIANCARLO and cardioversion versus EP consultation for evaluation of dual-chamber permanent pacemaker placement and AV junction ablation. -All the plans were discussed with the patient and her family. -Continue Coumadin per pharmacy. INR supratherapeutic today. -Continue Telemetry monitoring. Acute respiratory failure with hypoxia in the setting of pulmonary hypertension , multifactorial, POA and improving. -Multifactorial, likely related to asthma exacerbation and diastolic heart failure. -Continue O2 as needed. Continue CPAP at night. -Will hold Lasix given low BP on both Esmolol and Diltiazem gtt. -Patient would like benefit from sleep study as outpatient and likely has MARILYNN diagnosis contributing to moderate pulmonary hypertension Acute on chronic diastolic congestive heart failure, with atrial fibrillation with rapid ventricular response, present times admission. Active improving -Hold Lasix 40 mg IV. Will resume it when her BP improves. -Continue strict I/O. -We will continue with diuresis and BiPAP as needed. Acute asthma exacerbation likely due to URI, present at the time of admission. Active and improving. - Continue Solu-Medrol 60 mg IV every 8 hours - Continue Ipratropium Q6H with Levalbuterol Q6H scheduled as well as Q2H PRN levalbuterol. - Sputum and blood cultures show no growth in the last 24 hours. Severe esophageal dysmotility, as evidence by Barium study on 12/23/16. -Continue nectar thick diet per Speech. -Oral pills need to be crushed. Diabetes mellitus 2, POA. -A1c 6.4. Elevated BG likely partly due to steroid therapy. BG was up to 400 2 days ago. -Accu-Cheks before meals and at bedtime -Continue NPH 8 units Q8H. -High insulin correctional scale. -Hold home glipizide. Hypothyroidism, chronic. -Hold in the setting of poorly controlled A Fib with overcorrected hypothyroidism. Osteoarthritis (doubt RA) as suggested in the computerized record, chronic and stable. -Continue supportive care Hyperlipidemia , POA and stable - Continue atorvastatin Hypertension. Chronic. Controlled. - Will hold losartan and Furosemide 40mg IV BID due to low BP. Depression and anxiety, present at the time of admission. Active and stable - Continue citalopram History of multiple Urinary tract infections, not currently active - Current urinalysis unremarkable and culture is not indicated. - Monitor closely. Dispo: pending discharge planning. Patient will like be here for a few more days. Pain Evaluation: Adequate Pain Control GI Prophylaxis: H2 safia VTE Prophylaxis: Theraputic Anticoag with Warfarin Resuscitation Status: DNR/DNI:Do Not Resuscitate/Intubate (Discussed with patient at length and she wishes to be a DO NOT RESUSCITATE/DO NOT INTUBATE.) Attending Statement Patient seen and examined with house staff. Agree with all attached documentation. Marquise Orantes DO Dec 26, 2016 16:52 Tristan Hart MD Dec 27, 2016 13:33
--- NOTE | 2016-12-26 18:15 | NUR ---
Esmolol/Dilt I have titrated with these 2 drips all day. Esmolol between 120mcg/min to 130mcg/min/ Dilt started out at 5mls/hour and got up to 10 mls/hr. HR has been in the 110's-120's. When titrating up BP would drop to 87/58 then titrated down, HR would go up. Will inform cardiology
[2016-12-27] VITALS (11 sets, daily range): BP systolic 98–120; BP diastolic 43–79; PULSE 87–113; RESP 17–24; O2SAT 93–99
[2016-12-27] MEDS: Esmolol 2,500 mg/250 mL NS 2,500,000 MCG in IV Premix 1 EACH IV SCH ×4 (02:23→20:58)
[2016-12-27] MEDS: MethylprednisoLONE Sodium Succinate 40 mg/mL Inj IVPUSH SCH ×4 (02:23→23:51)
[2016-12-27] MEDS: Diltiazem 125 mg/125 mL D5W IV SCH ×2 (02:44)
[2016-12-27] MEDS: Insulin Human NPH 100 Unit/mL 3 mL Inj SUBQ SCH ×2 (02:44→17:00)
--- NOTE | 2016-12-27 03:37 | NUR ---
Cardiac: Pt on cardizem and esmolol gtt with heart rate into the 110s. cardizem increased to 10mg/hr and esmolol decreased to 100mcg. Heart slowly come down to mid 90s.
[2016-12-27 04:29] LABS: Mean Corpuscular Hemoglobin 29.1 pg (27.0-35.0); Mean Corpuscular Volume 93.6 fL (81-100)
[2016-12-27 04:42] LABS: INR 3.84 ratio
[2016-12-27 06:29] LABS: Magnesium 2.1 mg/dL (1.6-2.6)
[2016-12-27] MEDS: Levalbuterol 1.25 mg/0.5mL Inhalation Solution NEB SCH ×3 (08:30→20:22)
[2016-12-27] MEDS ORDERED: Furosemide 10 mg/mL 4 mL Inj IVPUSH SCH ×2 (08:30)
[2016-12-27] MEDS: Ipratropium 0.02% 0.5 mg/2.5 mL Inhalation Solution NEB SCH ×3 (08:30→20:22)
[2016-12-27] MEDS: Insulin LISPRO 300 Unit/3 mL Inj SUBQ SCH ×4 (08:49→22:00)
[2016-12-27] MEDS: Fluticasone-Salmeterol 100-50 Inhaler INHALATION SCH ×2 (08:49→20:51)
[2016-12-27] MEDS: Magnesium Chloride SR 64 mg ER24 Tablet PO SCH ×2 (08:51→20:53)
--- NOTE | 2016-12-27 09:33 | PCM.PNMED ---
Subjective Date of Service Dec 27, 2016 Subjective No acute event overnight. Patient continues to be on both cardizem and esmolol. Heart slowly come down to mid [id number]. This morning, patient states that she feels much worse than yesterday. Her cough has been more persistent with yellow sputum production. She has been coughing so much that she has a lot of abdominal pressure. She denies any worsening SOB or chest pain. No fever or chills. Exam Vital Signs Vital Sign - Last Date Time Temp Pulse Resp B/P Pulse Ox O2 Delivery O2 Flow Rate FiO2 12/27/16 03:48 36.4 95 24 98/48 94 Nasal Cannula 0.50 12/25/16 19:58 30 Intake and Output 12/26/16 12/26/16 12/27/16 Cumulative From/Thru 15:00 23:00 07:00 12/21/16 08:36 - 12/27/16 06:37 Intake Total 748 ml 150 ml 5096 ml Output Total 750 ml 250 ml 6300 ml Balance -2 ml -100 ml -1204 ml Intake Oral 100 ml 150 ml 3607 ml IV Total 648 ml 1489 ml Output Urine Total 750 ml 250 ml 6300 ml # Voids 1 1 15 # Bowel Movements 1 Exam General:Alert and oriented x3, no distress. Fluent speech, mild conversational dyspnea on 1L of O2. HEENT: NCAT. PERRLA, EOMI. Anicteric sclera. Necl: supple, No JVD noted, no lymphadenopathy. Lungs: Worse than yesterday. Diffuse rales with moderate wheezes. Heart: irregular irregular, heart sound distant due to body habitus and wheezes. Abdomen: soft, mild tenderness to palpation in the epigastric area, nondistended , active bowel sound. Extremities: trace edema in bilateral LE. Skin: free of rash or lesions. IVs and Medications Medications Reviewed: Medications were reviewed in detail Lab and Diagnostics Result Diagram: 12/27/1640912/27/16409 Microbiology Urinalysis was unremarkable and culture was not indicated. Blood cultures are pending and sputum culture is pending and respiratory viral PCR panel is pending X-Rays, CTs and MRIs X-RAY CHEST ONE VIEW, PORTABLE IMPRESSION: Hadley B-lines in the peripheral lower lungs, consistent with mild interstitial pulmonary edema, and suggesting early congestive heart failure. Dictated by: Franck Nicholson M.D. on 12/21/2016 at 9:06 PROCEDURE: X-RAY BARIUM SWALLOW ESOPHAGUS IMPRESSION: 1. Trace laryngeal penetration. 2. Severe esophageal dysmotility. 3. Smooth-walled, posterior distal esophageal diverticulum. Dictated by: Meliton Benitez [facility] Interpreted: Syd Avalos MD on 12/23/2016 at 16 :36 Cardiac Echo Impressions Interpretation Summary Left ventricular systolic function is normal without focal wall motion abnormalities with the ejection fraction estimated to be 65-70%. There is mild concentric left ventricular hypertrophy but diastolic function could not be accurately assessed due to probable rapid atrial fibrillation. There has been no significant change since the previous study. The right ventricle is not well visualized but grossly appears normal in size with probable normal systolic function. There is moderate pulmonary hypertension with the right ventricular systolic pressure estimated at 48 mmHg assuming a right atrial pressure of 8 mm Hg, and is similar compared to the previous study. The left atrial size is normal and the right atrium is borderline dilated. Both are unchanged compared to the previous study.There is mild mitral regurgitation and mild to moderate tricuspid regurgitation that are unchanged compared to the previous study. There is no other significant valvular heart disease.The ascending aorta is at the upper limits of normal in size. The patient was in probable atrial fibrillation with heart rates between 105- 133 bpm during the exam which is faster compared to the previous study. Assessment & Plan 89-year-old white female with history of diabetes mellitus, hypertension, asthma , pneumonia, congestive heart failure, hyperlipidemia, atrial fibrillation, hypothyroidism and arthritis presenting to [facility] for shortness of breath and wheezing that began the day prior to admission. Currently receiving treatment for congestive heart failure and acute asthma exacerbation. Chronic fibrillation with rapid ventricular response, POA. -Appreciate cardiology's input. The plan is to continue with aggressive rate control. Patient was on Diltiazem and Esmolol gtt yesterday. -The plan for today is to D/C diltiazem ggt and start on Diltiazem PO 60mg Q6H, 2 hours after the Diltiazem gtt is off. -Continue Esmolol gtt and will switch to oral beta safia tomorrow. -Continue Digoxin daily. -Continue Coumadin per pharmacy. INR supratherapeutic today. -Continue Telemetry monitoring. -Levothyroxine was hold due to concern of worsening heart rate. However, Dr. Hernandez restarted it on 12/26. Productive cough, worsening. -Patient reports worsening cough overnight. Her lung exam reveals more rales and wheezes. -Likely due to pulmonary edema vs. CHF decompensation. However, patient has no signs of fluid overload on exam. -Check CXR, sputum culture to rule out pneumonia. -Normal WBC and vital signs. -Continue to monitor symptoms and signs of infection. Acute respiratory failure with hypoxia in the setting of pulmonary hypertension , multifactorial, POA and improving. -Multifactorial, likely related to asthma exacerbation and diastolic heart failure. -Continue O2 as needed. Continue CPAP at night. -Will hold Lasix given low BP on Esmolol and Diltiazem. -Patient would like benefit from sleep study as outpatient and likely has MARILYNN diagnosis contributing to moderate pulmonary hypertension Acute on chronic diastolic congestive heart failure, with atrial fibrillation with rapid ventricular response, present times admission. Active improving -Hold Lasix 40 mg IV. Will resume it when her BP improves. -Continue strict I/O. -We will continue with diuresis and BiPAP as needed. -Hold Losartan due to hypotension. Acute asthma exacerbation likely due to URI, present at the time of admission. Active and improving. - Continue Solu-Medrol 60 mg IV every 8 hours - Continue Ipratropium Q6H with Levalbuterol Q8H scheduled as well as Q2H PRN levalbuterol. - Sputum and blood cultures on admission were negative. Will repeat sputum culture today. Severe esophageal dysmotility, as evidence by Barium study on 12/23/16. -Continue nectar thick diet per Speech. -Oral pills need to be crushed. Diabetes mellitus 2, POA. -A1c 6.4. Elevated BG likely partly due to steroid therapy. -Increase NPH from 8 to 10 units Q8H. -High insulin correctional scale. -Hold home glipizide. Hypothyroidism, chronic. -Levothyroxine was in the setting of poorly controlled A Fib with overcorrected hypothyroidism. This was restarted on 12/26/16. Osteoarthritis (doubt RA) as suggested in the computerized record, chronic and stable. -Continue supportive care Hyperlipidemia , POA and stable - Continue atorvastatin Hypertension. Chronic. Controlled. - Will hold losartan and Furosemide 40mg IV BID due to low BP. Depression and anxiety, present at the time of admission. Active and stable - Continue citalopram History of multiple Urinary tract infections, not currently active - Current urinalysis unremarkable and culture is not indicated. - Monitor closely. Dispo: pending discharge planning. Patient will like be here for a few more days. Patient lives at the assisted living part [facility]. She is willing to go to SNF if she needs to. Pain Evaluation: Adequate Pain Control GI Prophylaxis: H2 safia VTE Prophylaxis: Theraputic Anticoag with Warfarin Resuscitation Status: DNR/DNI:Do Not Resuscitate/Intubate (Discussed with patient at length and she wishes to be a DO NOT RESUSCITATE/DO NOT INTUBATE.) Attending Statement Patient seen and examined with housestaff. Agree with all attached documentation. Marquise Orantes DO Dec 27, 2016 07:03 Tristan Hart MD Dec 27, 2016 13:34
--- NOTE | 2016-12-27 09:44 | DRSVH ---
PROCEDURE: X-RAY CHEST ONE VIEW, PORTABLE ([id number]) INDICATIONS: Worsening cough TECHNIQUE: One view of the chest was acquired. COMPARISON: [facility], CR, XR CHEST 1VW (PORTABLE), 12/21/2016, 8:46. FINDINGS: Surgical changes and devices: None. Lungs and pleura: No pleural effusions or pneumothorax. Lungs are clear. Mediastinum: Mediastinal contours appear normal. Heart size is normal. Bones and chest wall: No suspicious bony lesions. Overlying soft tissues appear unremarkable. IMPRESSION: No acute cardiopulmonary pathology. Dictated by: Syd Avalos M.D. on 12/27/2016 at 9:35 Approved by: Syd Avalos M.D. on 12/27/2016 at 9:36
--- NOTE | 2016-12-27 09:47 | PROG NOTE ---
[address] [address] PROGRESS NOTE PATIENT: LUCI BOCANEGRA : 1925 MR#: [id number] ADMIT: 12/21/2016 JOB ID: [id number] DATE: 12/27/2016 CARDIOLOGY PROGRESS NOTE: SUBJECTIVE: The patient is a 89-year-old female with chronic atrial fibrillation and who generally has had fairly good heart rate control on metoprolol 100 mg daily at home, but was admitted on December 21, 2016 with increasing dyspnea felt to represent a COPD exacerbation and treated with beta agonist. With this, she has developed rather rapid atrial fibrillation, at times demonstrating atrial flutter. Treatment has been complicated by swallowing difficulties due to an esophageal motility issue and a potential esophageal diverticulum. An echocardiogram was performed that showed vigorous LV systolic function without any focal wall motion abnormality. Pulmonary artery pressures were in the mid 40s. She was started on IV esmolol, but this was limited by hypotension and she has been diuresed because of her dyspnea. She was started on digoxin, received two doses yesterday and then was ultimately started on IV diltiazem which produced improved heart rate control, now in the 80s to 90s, compared to the 110-125 range. Because of increased dyspnea, she received another dose of Lasix this morning. She currently had a "rough night" because of increased wheezing with mucus production and thick yellow sputum. She denies any chest discomfort but has developed some abdominal distention. She has been able to consume pills adequately if they are crushed. PHYSICAL EXAMINATION: Elderly female, in no distress although with significant effort of breathing. HR at 98, BP 120/47, O2 saturation 97% on 1.5 L. Lungs: Reduced breath sounds bilaterally with prominent coarse expiratory wheeze, but no inspiratory rales. CV: Distant heart tones with an irregular rhythm without any appreciable murmurs or gallops. JVP is difficult to assess but there is no obvious JVD. Abdomen: Mildly obese but nondistended, nontender. Extremities: Warm without any edema. LABORATORY: White count is 9.2 with hematocrit of 36%. Sodium is 146 with a BUN of 62 and a creatinine of 1.5, up from 45 and 1.4 on admission. Her TSH was borderline low at 0.368 and her procalcitonin was elevated slightly at 0.13. IMPRESSION: 1. Chronic atrial fibrillation with a challenging heart rate control. I do not believe this is contributing appreciably to her dyspnea, which I think is most likely secondary to intrinsic lung issues and bronchospasm. She currently has adequate heart rate control but this is on two IV medications. I think any attempt at cardioversion would unlikely produce [facility] rhythm control given the chronicity of her atrial fibrillation and a GIANCARLO is relatively contraindicated because of her known esophageal diverticulum. Given this, I would not pursue any cardioversion but would take continue to focus on heart rate control. Given her bronchospastic disease, I would try to use diltiazem in lieu of beta blockade for this. I will transition her from IV diltiazem to oral diltiazem with a total daily dose of 240 mg daily which can be up upward titrated as needed. I would continue with her IV esmolol for now, but this can be titrated down as her heart rate improves. I would continue with digoxin in the short run but would be reluctant to use this in the long run in this elderly female unless absolutely necessary. If her heart rate control remains challenging or she is intolerant of oral medications, then an AV liz ablation followed by pacemaker implantation could be considered but will hold on this at this point. A digoxin level will be checked tomorrow, but I would continue with her did digoxin for now. 2. Bronchospastic disease. It is not clear why she has developed her exacerbation and with her colored mucus, some degree of an infectious component could be considered. I will leave management of this to the hospitalist service. 3. Distal motility issues, per the hospitalist. 4. Hypertension, overcontrolled. I would continue to withhold her losartan. 5. Anticoagulation. Her INR remains mildly elevated at 3.8. It should be monitored closely. PLAN: 1. Transition from IV diltiazem to oral diltiazem using short acting diltiazem 60 mg q.6 h. with upper titration as necessary and as long as her blood pressure tolerates it. With this, I would continue to titrate down her esmolol. Low doses of p.o. beta safia may be able to be used as needed. Continue with digoxin for now but check a digoxin level. 2. Continue to treat her intrinsic lung issues aggressively. 3. Continue to monitor her anticoagulation. 4. I do not see any evidence for volume overload on exam and I would stop her Lasix given her prerenal laboratory picture. TIME: I spent 40 minutes reviewing the patient's medical record, interviewing and examining the patient and discussing with her other care providers. FUAD
--- NOTE | 2016-12-27 09:54 | NUR ---
Pt is currently on the least restrictive diet, due to her severe esophageal dysmotility. IRON SETTER will sign off. If esophageal intervention is possible and successful, recommend IRON SETTER re-consultation.
--- NOTE | 2016-12-27 10:37 | PCM.PHAPRO ---
Progress Warfarin dosing Warfarin Management: -inr remains supratherapeutic, 3.84. will continue to hold dose today Wendie Hernandez [facility] Dec 27, 2016 10:37
--- NOTE | 2016-12-27 12:14 | NUR ---
Blood Glucose and NPH 8 units of NPH ordered for this morning at 0830. weight shifter had given it a little late so at 0830 it would have only been 6 hours when its ordered for Q8. With held for a couple hours, administered sliding scale insulin for a BG of 274. MD had changed dose of NPH to 10 units of NPH and its ordered to be given at 1430. BG at lunch was high at 304, gave 10 units Lispro per sliding scale. Will discuss with MD and see if changes need to be made.
--- NOTE | 2016-12-27 13:59 | NUR ---
Spoke with Kathe at [facility] and let her know we would likely be needing SNF for this patient prior to her returning to her suite on the assisted side. Updated LITIGATION SECRETARY
[2016-12-27] MEDS: Ondansetron 2 mg/mL 2 mL Inj IVPUSH PRN (23:51)
[2016-12-28] VITALS (11 sets, daily range): BP systolic 107–144; BP diastolic 60–78; PULSE 84–117; RESP 18–22; O2SAT 90–98
[2016-12-28] MEDS: Insulin Human NPH 100 Unit/mL 3 mL Inj SUBQ SCH ×4 (01:05→21:53)
[2016-12-28] MEDS: Esmolol 2,500 mg/250 mL NS 2,500,000 MCG in IV Premix 1 EACH IV SCH ×3 (03:03→16:52)
[2016-12-28 05:39] LABS: BASOPHILS % (AUTO) 0.1 % (0-3); EOSINOPHILS % (AUTO) 0 % (0-5); MONOCYTES % (AUTO) 4.4 % (4-12); Mean Corpuscular Hemoglobin 28.8 pg (27.0-35.0); Mean Corpuscular Volume 93.3 fL (81-100); NEUTROPHILS % (AUTO) 93.2 % (40-74); Platelet Count 262 bil/L (150-400)
[2016-12-28 05:51] LABS: INR 3.86 ratio
[2016-12-28 05:57] LABS: Magnesium 2.4 mg/dL (1.6-2.6)
[2016-12-28] MEDS: Ondansetron 2 mg/mL 2 mL Inj IVPUSH PRN (06:51)
[2016-12-28] MEDS: Magnesium Chloride SR 64 mg ER24 Tablet PO SCH ×2 (08:18→20:56)
[2016-12-28] MEDS: HYDROcodone-APAP 5-325 mg Tablet PO PRN ×2 (08:18→23:18)
[2016-12-28] MEDS: Insulin LISPRO 300 Unit/3 mL Inj SUBQ SCH ×4 (08:19→21:53)
[2016-12-28] MEDS: Fluticasone-Salmeterol 100-50 Inhaler INHALATION SCH ×2 (08:19→20:55)
[2016-12-28] MEDS: MethylprednisoLONE Sodium Succinate 40 mg/mL Inj IVPUSH SCH ×2 (08:19→16:51)
[2016-12-28] MEDS: Ipratropium 0.02% 0.5 mg/2.5 mL Inhalation Solution NEB SCH ×3 (08:50→20:28)
[2016-12-28] MEDS: Levalbuterol 1.25 mg/0.5mL Inhalation Solution NEB SCH ×3 (08:50→20:28)
--- NOTE | 2016-12-28 09:52 | PCM.PNMED ---
Subjective Date of Service Dec 28, 2016 Subjective Patient reports that she has not had much sleep and had been feeling sick. She admits to nausea and vomiting. Nursing reports that she has been coughing but is unable to clear the mucus and thus has posttussive emesis. There is also sign of possible aspiration after she took her morning pills with apple sauce. This morning, patient admits that she feels very bloated and unable to have a BM for 4 days. She passes very little gas and admits to bad acid reflux. She states that she has some abdominal discomfort, but not pain. She states the Zofran did not help with her nausea. Patient denies any fever or chills, CP or SOB. Exam Vital Signs Vital Sign - Last Date Time Temp Pulse Resp B/P Pulse Ox O2 Delivery O2 Flow Rate FiO2 12/28/16 08:50 91 18 96 Nasal Cannula 1.00 12/28/16 08:03 36.8 144/78 12/25/16 19:58 30 Intake and Output 12/27/16 12/27/16 12/28/16 Cumulative From/Thru 15:00 23:00 07:00 12/21/16 08:36 - 12/28/16 05:38 Intake Total 1230 ml 596 ml 6922 ml Output Total 1400 ml 100 ml 7800 ml Balance -170 ml 496 ml -878 ml Intake Oral 720 ml 100 ml 4427 ml IV Total 510 ml 496 ml 2495 ml Output Urine Total 1400 ml 100 ml 7800 ml # Voids 3 1 19 # Bowel Movements 1 Exam General:Alert and oriented x3, fatigue looking, but in no apparent distress. Fluent speech, mild conversational dyspnea on 1L of O2. HEENT: NCAT. PERRLA, EOMI. Anicteric sclera. Necl: supple, No JVD noted, no lymphadenopathy. Lungs: Mild rales with moderate wheezes. No accessory muscle use. Heart: irregular irregular, no murmur appreciated. Abdomen: soft, mildly distended, no tenderness to palpation, active bowel sound. Extremities: trace edema in bilateral LE. Skin: free of rash or lesions. IVs and Medications Medications Reviewed: Medications were reviewed in detail Lab and Diagnostics Result Diagram: 12/28/165 12/28/16454 Microbiology Urinalysis was unremarkable and culture was not indicated. Blood cultures are pending and sputum culture is pending and respiratory viral PCR panel is pending X-Rays, CTs and MRIs PROCEDURE: X-RAY ACUTE ABDOMINAL SERIES IMPRESSION: Gaseous distention of several small bowel loops within the abdomen which may be related to developing small bowel obstruction. Recommend clinical correlation and if indicated repeat examination or CT could be performed for further assessment. Dictated by: Meliton NICOLE Interpreted: Marycruz Dotson MD on 12/28/2016 at 13: 48 X-RAY CHEST ONE VIEW, PORTABLE IMPRESSION: Hadley B-lines in the peripheral lower lungs, consistent with mild interstitial pulmonary edema, and suggesting early congestive heart failure. Dictated by: Franck Nicholson M.D. on 12/21/2016 at 9:06 PROCEDURE: X-RAY BARIUM SWALLOW ESOPHAGUS IMPRESSION: 1. Trace laryngeal penetration. 2. Severe esophageal dysmotility. 3. Smooth-walled, posterior distal esophageal diverticulum. Dictated by: Meliton NICOLE Interpreted: Syd Avalos MD on 12/23/2016 at 16 :36 Cardiac Echo Impressions Interpretation Summary Left ventricular systolic function is normal without focal wall motion abnormalities with the ejection fraction estimated to be 65-70%. There is mild concentric left ventricular hypertrophy but diastolic function could not be accurately assessed due to probable rapid atrial fibrillation. There has been no significant change since the previous study. The right ventricle is not well visualized but grossly appears normal in size with probable normal systolic function. There is moderate pulmonary hypertension with the right ventricular systolic pressure estimated at 48 mmHg assuming a right atrial pressure of 8 mm Hg, and is similar compared to the previous study. The left atrial size is normal and the right atrium is borderline dilated. Both are unchanged compared to the previous study.There is mild mitral regurgitation and mild to moderate tricuspid regurgitation that are unchanged compared to the previous study. There is no other significant valvular heart disease.The ascending aorta is at the upper limits of normal in size. The patient was in probable atrial fibrillation with heart rates between 105- 133 bpm during the exam which is faster compared to the previous study. Assessment & Plan 89-year-old white female with history of diabetes mellitus, hypertension, asthma , pneumonia, congestive heart failure, hyperlipidemia, atrial fibrillation, hypothyroidism and arthritis presenting to [facility] for shortness of breath and wheezing that began the day prior to admission. Currently receiving treatment for congestive heart failure and acute asthma exacerbation. Severe esophageal dysmotility -Likely chronic, but patient has had issue with aspiration, which seems to get worse today. -Barium esophagram revealed severe esophageal dysmotility on 12/23. -Consulted Dr. Houston (GI), who kindly agreed to see the patient. -Speech therapy recommended continue with the nectar thick diet and no further recommendation. Possible small bowel obstruction, new, active. -Patient had a few episodes of posttussive emesis as well as signs of aspiration this morning. -Acute abdominal series reveals possible developing SBO, but there is no air- fluid level. -It is likely that this is partly due to constipation. Last BM was 4 days ago. -Will start scheduled bowel regimen and add Dulcolax suppositories daily. -Will keep the patient NPO at this point and start IVF with 1/2NS at 80mls/hr given her hypernatremia and CHF. -PT evaluation to get the patient up and moving. -Will consider NGT if patient's symptoms do not improve. Chronic fibrillation with rapid ventricular response, POA, improved. -Heart rate has been in the 90s-100s. Appreciate cardiology's input. The plan is to continue with aggressive rate control. Patient was on Diltiazem and Esmolol gtt for a day on 12/26/16. -Continue Diltiazem PO 60mg Q6H. -Will taper off the Esmolol gtt and will hold off on further beta safia to see if it helps her respiratory symptoms. -Continue Digoxin daily. -Continue Coumadin per pharmacy. INR supratherapeutic today. -Continue Telemetry monitoring. Productive cough, stable. -Patient reports persistent lung exam reveals more rales and wheezes. -Possible causes include aspiration pneumonia, healthcare-acquire pneumonia, Asthma exacerbation, or pulmonary edema due CHF decompensation. -Lung exam revealed some rales and wheezes, but patient has no signs of fluid overload on exam. -CXR normal, sputum culture pending. -Elevated WBC but normal vital signs. Possibly due to new infection vs. steroid use. -Continue to monitor symptoms and signs of infection. Acute respiratory failure with hypoxia in the setting of pulmonary hypertension , multifactorial, POA and improving. -Multifactorial, likely related to asthma exacerbation and diastolic heart failure. -Continue O2 as needed. Continue CPAP at night. -Will hold Lasix given low BP. -Patient would like benefit from sleep study as outpatient and likely has MARILYNN diagnosis contributing to moderate pulmonary hypertension Acute on chronic diastolic congestive heart failure, with atrial fibrillation with rapid ventricular response, present times admission. Active improving -Hold Lasix 40 mg IV. Will resume it when her BP improves. -Continue strict I/O. -We will continue with diuresis and BiPAP as needed. -Hold Losartan due to hypotension. Acute asthma exacerbation likely due to URI, present at the time of admission. Active and improving. - Continue Solu-Medrol 60 mg IV every 8 hours - Continue Ipratropium Q6H with Levalbuterol Q8H scheduled as well as Q2H PRN levalbuterol. - Sputum and blood cultures on admission were negative. Will repeat sputum culture today. Diabetes mellitus 2, POA. -A1c 6.4. Elevated BG likely partly due to steroid therapy. -Continue NPH 10 units Q8H. -High insulin correctional scale. -Hold home glipizide. Hypothyroidism, chronic. -Levothyroxine was in the setting of poorly controlled A Fib with overcorrected hypothyroidism. This was restarted on 12/26/16. Osteoarthritis (doubt RA) as suggested in the computerized record, chronic and stable. -Continue supportive care Hyperlipidemia , POA and stable - Continue atorvastatin Hypertension. Chronic. Controlled. - Will hold losartan and Furosemide 40mg IV BID due to low BP. Depression and anxiety, present at the time of admission. Active and stable - Continue citalopram History of multiple Urinary tract infections, not currently active - Current urinalysis unremarkable and culture is not indicated. - Monitor closely. Dispo: pending discharge planning. Patient will like be here for a few more days. Patient lives at the assisted living part of [facility]. She is willing to go to SNF if she needs to. Pain Evaluation: Adequate Pain Control GI Prophylaxis: H2 safia VTE Prophylaxis: Theraputic Anticoag with Warfarin Resuscitation Status: DNR/DNI:Do Not Resuscitate/Intubate (Discussed with patient at length and she wishes to be a DO NOT RESUSCITATE/DO NOT INTUBATE.) Attending Statement The patient was seen and examined with staff. Agree with all attached documentation. Marquise Orantes DO Dec 28, 2016 09:52 Tristan Hart MD Dec 29, 2016 10:56
--- NOTE | 2016-12-28 10:04 | PROG NOTE ---
[address] [address] PROGRESS NOTE PATIENT: LUCI BOCANEGRA : 1925 MR#: [id number] ADMIT: 12/21/2016 JOB ID: [id number] DATE: 12/28/2016 SUBJECTIVE: The patient had a "miserable" night predominantly due to abdominal discomfort and distention with frequent vomiting. She reports she has significant regurgitation after food and has been unable to keep much food down and has very little appetite. She denies any chest discomfort. She feels that her dyspnea and wheezing have improved as has her cough. Her heart rates have remained reasonably well controlled generally in the 85-105 bpm range on esmolol at 50 mcg/kg/minute. She is no longer on the IV diltiazem and continues on low-dose digoxin. DATE: PHYSICAL EXAM: Uncomfortable elderly female who vomits a small amount of bilious material while I am in the room. HR 91, BP 144/78, O2 saturation 96% on 1 L nasal cannula. Her fluid balance has been relatively flat as is her weight. Lungs: Diffuse coarse breath sounds with significant expiratory wheeze but no appreciable inspiratory rales. CV : Irregularly irregular rhythm without any appreciable murmurs or gallops. JVP appears to be less than 4 cm. Abdomen: Slightly distended but nontender without any guarding or rebound. Extremities warm without edema. LABORATORY: White count this morning is 15,000 with a hematocrit of 38%. Her sodium was 147 with a potassium of 3.9, and a BUN of 58 and a creatinine of 1.4. Magnesium was 2.4. ECG: Her ECG continues to show atrial fibrillation with a nonspecific intraventricular conduction delay with diffuse ST-segment abnormalities but is unchanged from yesterday. ST abnormalities are more prominent than on December 21. A chest x-ray from yesterday showed no infiltrates. Her barium swallow from December 23, 2016 showed severe esophageal dysmotility with a posterior distal esophageal diverticulum. IMPRESSION: 1. Chronic atrial fibrillation with borderline heart rate control. Her heart rate has been reasonably controlled on her current regimen but I would like to get her off of IV esmolol with potential increase in her diltiazem to try to avoid any beta safia induced bronchospasm. I would continue with low-dose digoxin for now but again this can be discontinued at some point, if her heart rate settles down. I continue to believe that her atrial fibrillation is not her primary issue but rather her lung and abdominal issues. 2. Abdominal distention with regurgitation and discomfort. I wonder if her abdominal issues are providing the stimulus for her difficult heart rate control. Further evaluation for her gastrointestinal symptoms would be warranted. I am concerned about her ability to take long-term oral medications if her regurgitation remains present which will, in turn, make heart rate control challenging. 3. Bronchospastic disease. She continues to have fairly active wheezing. With her esophageal issues, one wonders whether she may have some aspiration. 4. Hypertension. Her blood pressures have generally improved and may allow for advancement of her diltiazem. 5. Anticoagulation. She remains supratherapeutic. 6. Hypernatremia. I do not see any evidence of any volume overload and I suspect that she may be somewhat volume contracted. IV fluids may be appropriate for the patient, but I will defer her fluid management to the hospitalist service. PLAN: 1. Continue to wean down IV esmolol. 2. Consider advancing her diltiazem to 90 mg every 8 hours if her heart rate requires it. 3. Continue investigation of her gastrointestinal and lung issues, defer to the hospitalist. I spent 30 minutes reviewing the patient's medical record, examining and interviewing the patient, and documenting such.
[2016-12-28] MEDS: Diltiazem 125 mg/125 mL D5W IV SCH ×2 (10:33)
--- NOTE | 2016-12-28 13:51 | DRSVH ---
PROCEDURE: X-RAY ACUTE ABDOMINAL SERIES ([id number]) INDICATIONS: Abdominal distension and discomfort TECHNIQUE: One view chest and two views of the abdomen were acquired. COMPARISON: [facility], CR, XR ABD AP 1VW, 12/21/2016, 18:21. FINDINGS: Surgical changes and devices: None. Chest: Lungs are clear. Heart size is normal. No pleural effusions. No pneumoperitoneum. Abdomen: Residual contrast media within the colon were multiple diverticula are noted. There is gase ous distention of multiple small bowel loops within the midabdomen. No pneumatosis or bowel wall thi ckening. No pneumoperitoneum. Bones: No suspicious bony lesions. IMPRESSION: Gaseous distention of several small bowel loops within the abdomen which may be related t o developing small bowel obstruction. Recommend clinical correlation and if indicated repeat examina tion or CT could be performed for further assessment. Dictated by: Meliton NICOLE Interpreted: Marycruz Dotson MD on 12/28/2016 at 13:48 Transcribed by: HALLIE on 12/28/2016 at 13:50 Approved by: Marycruz Dotson M.D. on 12/28/2016 at 17:24
[2016-12-28] MEDS ORDERED: Pantoprazole 4 mg/mL 10 mL Inj IVPUSH ONE (17:45)
[2016-12-28] MEDS ORDERED: Sodium Biphos-Phos 133 mL Enema RECTAL ONE (17:45)
--- NOTE | 2016-12-28 18:52 | NUR ---
Blood glucose/pain/anxiety/abdominal distention/esmolol drip Morning glucose level was 247 and at noon time glucose level per finger stick was 229- both times patient received schedule insulin NPH and short acting SUBQ coverage as per protocol. This evening glucose level was 129. Patient had been on NPO status since after lunch schedule insulin dose was held - MD aware. Patient complained of generalized discomfort and stated feeling anxious this morning patient was given Vicodin one PO and after about 30min symptoms resolved. Patient was experiencing similar anxiety this evening but after reassuring and talking to the patient and her symptoms subsided spontaneously. Patient has not had a BM in 4-5 day. Patient has been feeling full with increased abdominal distension. Patient has been having periods of belching with occasional emesis of gastric content. Strongly questioned patient increased risk for aspiration- consulted with speech therapy and MD. MD ordered follow up abdominal study and gastroenterology consult. Patient was given schedule per MD stool softeners throughout the shift and was given a fleet enema this evening - no results so fat- HOB up, continue assessment. Attempted to wean off esmolol drip today as ordered by MD. Drip was gradually titrated down from 100mcg/kg/min to 25mcg/kg/min but after about 2h at 25mcg/kg/min level her heart rate started to increase from 90-120 to 120-140 ranges. Drip was increased to 50mcg/kg/min symptoms resolved attending completions engineer- Dr. Sandhu was made aware- no new orders were received so far.
[2016-12-29] VITALS (11 sets, daily range): BP systolic 103–118; BP diastolic 45–91; PULSE 92–115; RESP 20–24; O2SAT 91–95
[2016-12-29] MEDS: MethylprednisoLONE Sodium Succinate 40 mg/mL Inj IVPUSH SCH ×3 (00:39→16:44)
[2016-12-29 04:09] LABS: BASOPHILS % (AUTO) 0.1 % (0-3); EOSINOPHILS % (AUTO) 0 % (0-5); MONOCYTES % (AUTO) 3.5 % (4-12); Mean Corpuscular Hemoglobin 29.2 pg (27.0-35.0); Mean Corpuscular Volume 93.5 fL (81-100); NEUTROPHILS % (AUTO) 92.5 % (40-74); Platelet Count 252 bil/L (150-400)
[2016-12-29 04:54] LABS: Magnesium 2.5 mg/dL (1.6-2.6)
[2016-12-29] MEDS: Esmolol 2,500 mg/250 mL NS 2,500,000 MCG in IV Premix 1 EACH IV SCH (05:03)
--- NOTE | 2016-12-29 06:09 | NUR ---
Cardiac/GI/Pain Patient remains on Esmolol gtt, was at 50mcg/kg/min and titrated down though the night and is currently at 6mcg/kg/min, HR A-Fib 100-110's this AM, BP 130/66, c/o abd discomfort this shift, "I am so miserable" patient explains she hasn't eaten much of anything in the last 6 days and has no stool to pass, denied pain this AM but having abd cramps, moaning in bed and very uncomfortable, carsonts son was into visit last night and updated on POC. Addendum: 12/29/16 at 0615 by JOHN BURTON RN Amended: Links added.
[2016-12-29] MEDS ORDERED: Pantoprazole 4 mg/mL 10 mL Inj IVPUSH SCH (07:30)
--- NOTE | 2016-12-29 07:44 | PCM.CHPMED ---
Subjective Date of Service: Dec 29, 2016 Provider requesting consult: Marquise Orantes DO Primary Physician: Admitting Physician: Tristan Hart MD Primary Care Physician: Lonnie Kelley DO Attending Physician: Tristan Hart MD Admit Status: From the Emergency Department Chief Complaint: Chief Complaint: Asthma exacerbation, consulted for esophageal dismotility History of Present Illness: GASTROENTEROLOGY CONSULTATION Patient is an 89-year-old female hospitalized for asthma exacerbation and congestive heart failure. She has had difficulty swallowing and some indigestion for the last couple of weeks. The patient and recently received antianxiety medication and was quite sleepy during our visit, she is unable to answer questions. I spoke with her son Jacky was able to give a little bit of history in that she has not had black or bloody stools recently. She has had cholecystectomy. She had some right upper quadrant pain diagnosed as being sphincter of Fly spasm approximately 5 years ago. Son Jacky confirms that if EGD is indicated or NG tube needed this would be consistent with her wishes. Additional history was obtained from records review. Review of Systems: Patient unable to complete review of systems due to mental status. PMH Past Medical History Asthma Congestive heart failure Diabetes mellitus Hyperlipidemia Hypertension Atrial fibrillation Depression Hypothyroidism Cataracts Urinary tract infection Bedside Blood Glucose: 123 Surgical History Colon surgery to remove a large benign tumor Hysterectomy Carpal tunnel surgery of right wrist Tonsillectomy Cholecystectomy Appendectomy Bladder suspension for cystocele 2 Bilateral cataract surgery Levels teeth removal Extraction of upper teeth Home Medications Albuterol 2 puffs 4 times a day when necessary for shortness of breath Aspirin 81 mg daily Symbicort 2 puffs twice a day Citalopram 20 mg by mouth daily Furosemide 40 mg by mouth daily Glipizide 2.5 mg by mouth daily Percocet 10/26/2024 milligrams by mouth every 4 when necessary pain DuoNeb's inhaled every 6 hours Levothyroxine 88 g by mouth daily Loratadine 10 mg by mouth daily Losartan 25 mg by mouth twice a day Slow-Mag 64 mg by mouth twice a day Namenda 5 mg by mouth twice a day Metoprolol succinate ER 100 mg by mouth daily Warfarin 2.5 mg daily AREDS2 supplement 1 capsule by mouth daily Allergies: Coded Allergies: Contrast Media (Verified Allergy, Unknown, 07/31/15) Penicillins (Verified Allergy, Unknown, 07/31/15) Sulfa (Sulfonamide Antibiotics) (Verified Allergy, Unknown, 07/31/15) aspirin (Verified Allergy, Unknown, 07/31/15) adult only-able to take baby aspirin iodine (Verified Allergy, Unknown, 12/06/14) lisinopril (Verified Allergy, Unknown, 12/06/14) Family History Family History Patient has no known family history of colon cancer, inflammatory bowel disease , or celiac disease. Brother with metastatic cancer of unknown origin Social History Hx Alcohol Use: Yes (The patient rarely drinks alcohol.)Hx Substance Use: No Hx Tobacco Use: Yes Smoking Status: Former Smoker (patient smoked approximately half a pack a day for many years but quit 20 years ago) Living Arrangement: Assisted Living (The patient lives at [facility] in [place].) Exam Vital Signs Vital Sign - Last Date Time Temp Pulse Resp B/P Pulse Ox O2 Delivery O2 Flow Rate FiO2 12/29/16 05:55 104 12/29/16 03:26 36.4 23 118/61 92 Nasal Cannula 3.00 12/25/16 19:58 30 Intake and Output 12/28/16 12/28/16 12/29/16 Cumulative From/Thru 15:00 23:00 07:00 12/21/16 08:36 - 12/29/16 06:08 Intake Total 1066 ml 1049 ml 9037 ml Output Total 550 ml 100 ml 8450 ml Balance 516 ml 949 ml 587 ml Intake Oral 450 ml 0 ml 4877 ml IV Total 616 ml 1049 ml 4160 ml Output Urine Total 550 ml 100 ml 8450 ml # Voids 2 2 23 # Bowel Movements 0 1 General: No Acute Distress Head: Normal Chest & Lungs: Auscultation (decreased inspiratory effort) Abdomen: Non-tender, Distended (mild), Other (decreased bowel tones) Lab and Diagnostics Result Diagram: 12/29/16 0400 12/29/16 0400 X-Rays, CTs and MRIs PROCEDURE: X-RAY ACUTE ABDOMINAL SERIES IMPRESSION: Gaseous distention of several small bowel loops within the abdomen which may be related to developing small bowel obstruction. Recommend clinical correlation and if indicated repeat examination or CT could be performed for further assessment. Dictated by: Meliton NICOLE Interpreted: Marycruz Dotson MD on 12/28/2016 at 13: 48 PROCEDURE: X-RAY CHEST ONE VIEW, PORTABLE INDICATIONS: Worsening cough IMPRESSION: No acute cardiopulmonary pathology. Dictated by: Syd Avalos M.D. on 12/27/2016 at 9:35 Additional Diagnostics: PROCEDURE: X-RAY BARIUM SWALLOW ESOPHAGUS IMPRESSION: 1. Trace laryngeal penetration. 2. Severe esophageal dysmotility. 3. Smooth-walled, posterior distal esophageal diverticulum. Dictated by: Meliton Benitez [facility] Interpreted: Syd Avalos MD on 12/23/2016 at 16 :36 Assessment & Plan Assessment Patient is an 89-year-old female hospitalized for asthma exacerbation and congestive heart failure. Patient had difficulty swallowing, barium swallow showed severe esophageal dysmotility. Patient will likely benefit from EGD however she seems to be having a developing bowel obstruction. This needs to be resolved to perform the EGD. We will continue to follow along and performed EGD when indicated. I have seen and examined the patient and agree with above. Problems: Pain Evaluation: Adequate Pain Control GI Prophylaxis: H2 safia VTE Prophylaxis: Theraputic Anticoag with Warfarin Resuscitation Status: DNR/DNI:Do Not Resuscitate/Intubate (Discussed with patient at length and she wishes to be a DO NOT RESUSCITATE/DO NOT INTUBATE.) copies to: Austin Houston MD, Erika R DO Dec 29, 2016 07:44 Austin Houston MD Dec 30, 2016 19:02
[2016-12-29] MEDS: Magnesium Chloride SR 64 mg ER24 Tablet PO SCH (07:51)
[2016-12-29] MEDS: Insulin LISPRO 300 Unit/3 mL Inj SUBQ SCH ×4 (08:00→22:00)
[2016-12-29] MEDS: Ipratropium 0.02% 0.5 mg/2.5 mL Inhalation Solution NEB SCH ×3 (08:20→19:33)
[2016-12-29] MEDS: Levalbuterol 1.25 mg/0.5mL Inhalation Solution NEB SCH ×3 (08:23→19:35)
[2016-12-29] MEDS: Insulin Human NPH 100 Unit/mL 3 mL Inj SUBQ SCH ×2 (09:17→16:53)
[2016-12-29] MEDS: Fluticasone-Salmeterol 100-50 Inhaler INHALATION SCH ×2 (09:18→20:16)
--- NOTE | 2016-12-29 10:13 | DRSVH ---
PROCEDURE: X-RAY KUB ([id number]) INDICATIONS: vomiting feces TECHNIQUE: One view of the abdomen acquired. COMPARISON: [facility], CR, XR ABD ACUTE SERIES 3VW, 12/28/2016, 12:13. FINDINGS: Surgical changes and devices: None. Bowel: There is residual barium contrast material within the ascending and transverse colon. There are persistent dilated loops of small bowel throughout the abdomen measuring up to 4.1 cm in diameter . Soft tissues: No definite suspicious abdominal calcifications. Bones: No suspicious bony lesions. IMPRESSION: 1. Persistent dilated loops of small bowel again suspicious for bowel obstruction. Further evaluation may be obtained with CT if clinically indicated. Dictated by: Cedric Martin M.D. on 12/29/2016 at 9:55 Approved by: Cedric Martin M.D. on 12/29/2016 at 10:12
--- NOTE | 2016-12-29 10:13 | PROG NOTE ---
[address] [address] PROGRESS NOTE PATIENT: LUCI BOCANEGRA : 1925 MR#: [id number] ADMIT: 12/21/2016 JOB ID: [id number] DATE: 12/29/2016 CARDIOLOGY PROGRESS NOTE: The patient has continued to have nausea and vomiting with the nurse reporting recent emesis of fecal matter, concerning for a bowel obstruction. She has been sedated because of her discomfort and, therefore, is not overly conversive but responds to questions. She denies any chest discomfort with her main complaint being her abdominal pain. She has been n.p.o. although her Cardizem tablets have been given to her in a crushed form with applesauce. She states that her breathing is improved and she has had less cough and wheezing. Her esmolol has been able to be reduced down to now just 6 mcg/kg per minute. With this, however, her heart rates have generally increased and are now in the 100-110 range, particularly during periods of retching. PHYSICAL EXAMINATION: An uncomfortable appearing elderly female who is sedated but responsive. HR 110. BP 118/64, O2 saturation 92% on room air. Lungs: Mild coarse expiratory wheeze but it sounds improved from yesterday. CV : Irregularly irregular rhythm without any appreciable murmurs or gallops. I continue to see no evidence for any JVD. Abdomen: Soft and nondistended and nontender. Extremities warm without any edema. LABORATORY: Her white count this morning is 12.6 with a stable hematocrit 37%. Her sodium remains elevated at 147 with a potassium of 3.8. Her BUN is 59 with a creatinine of 1.44, up from 45 and 1.4 on admission. Her LFTs have normalized. Her lactate is normal at 1.2. Her magnesium is 2.5. ECG: Shows atrial fibrillation at 110 BPM with diffuse repolarization abnormalities which could be indicative of ischemia but also could be indicative of Dig effect. They are more prominent than yesterday. IMPRESSION: 1. Chronic atrial fibrillation with continued challenging heart rate control. I continue to believe that her challenging heart rate is due to other systemic issues likely including her gastrointestinal problems. I am concerned about giving her any more digoxin given the ST-segment abnormalities identified and I will stop this today. Given her bronchospasm, I would also like to get her off of the esmolol. Because she is no longer taking oral medications reliably with unclear absorption, I think we can switch her to IV diltiazem for heart rate control in the short run. Her prognosis is guarded given the unclear etiology of her gastrointestinal issues. I would continue to use IV diltiazem until these are sorted out. 2. Abdominal pain with persistent nausea and vomiting. As above. 3. Bronchospastic disease. It sounds improved today. 4. Hypertension. Blood pressure has been adequately controlled. 5. Anticoagulation. Her INR this morning remained elevated at 3.86. 6. Hyponatremia. I would continue to give her IV fluids in an effort to improve her hyponatremia. Fluid management will be deferred to the hospitalist service. PLAN: 1. Discontinue digoxin, esmolol and oral diltiazem and start IV diltiazem. 2. Continue evaluation of her abdominal issues, defer to the hospitalist. 3. Consider gentle hydration, defer to the hospitalist. I have spent 52 minutes reviewing the patient's medical record, examining the patient, and discussing with her other healthcare providers and documenting such.
[2016-12-29 10:31] LABS: INR 4.1 ratio
--- NOTE | 2016-12-29 10:38 | NUR ---
NUTRITION ASSESSMENT: ASSESS: Pt is an 89yo F admitted for asthma exacerbation and CHF. Cardiology is involved. Pt has been experiencing severe esophageal dysmotility. ST has been involved with recommendation of full liquid diet with nectar thick liquids. Unfortunately, the pt has been experiencing severe nausea and vomiting and this am she has some fecal matter in her emesis. Pt is currently NPO and GI is to consult due to concern for bowel obstruction. Pt has not had a BM since 12/22. PO prior to NPO status was fair at 25-100% of meal on FL diet. PMHX: hypothyroidism, osteoarthristis, asthma, CHF, DM, HLD, HTN, Afib, UTI LABS: Reviewed. Na 147, Bun 59, test bore helper 1.44, Glu 178, Alb 3.5 MEDS: Reviewed. Zofrangie, senna, solu-medrol GI: 0 BM since 12/22, n/v, esophageal dysmotility SKIN: Yonathan 17 CURRENT WTS: 69.2kg, BMI 26.2kg/m2, admit wt 69.4kg, IBW: 54.5kg DIET: NPO EST. NEEDS: Kcals: 1730-2075kcal/day (25-30kcal/kg) Pro: 70-85g/day (1.0-1.2g/kg) NUTRITION DIAGNOSIS: 1.) Inadequate oral intake related to altered GI function as evidence by persistent n/v, concern for SBO, and possible esophageal dysmotility NUTRITION INTERVENTION: 1.) Will continue to monitor NPO and GI status. If pt requires prolonged NPO status due to GI complications recommend nutrition support be considered if this fits within pts goals of care. MONITOR / EVAL: NPO, GI, wt, labs, POC, nutrition status. Will continue to monitor per high nutrition risk guidelines.
[2016-12-29] MEDS: Diltiazem Inj 125 MG in 0.9% Sodium Chloride 100 ML, Pharmacy To Mix 1 EA IV SCH ×2 (10:40→20:20)
--- NOTE | 2016-12-29 13:10 | DRSVH ---
PROCEDURE: X-RAY CHEST ONE VIEW, PORTABLE ([id number]) INDICATIONS: NG tube placement TECHNIQUE: One view of the chest was acquired. COMPARISON: [facility], CR, XR CHEST 1VW (PORTABLE), 12/27/2016, 8:23. FINDINGS: Surgical changes and devices: There is a nasogastric tube extending into the stomach. Lungs and pleura: No pleural effusions or pneumothorax. Lungs are clear. Mediastinum: Mediastinal contours appear normal. Heart size is normal. Bones and chest wall: No suspicious bony lesions. Overlying soft tissues appear unremarkable. IMPRESSION: 1. Nasogastric tube extends in the stomach. Dictated by: Cedric Martin M.D. on 12/29/2016 at 13:03 Approved by: Cedric Martin M.D. on 12/29/2016 at 13:08
--- NOTE | 2016-12-29 13:13 | PCM.PNMED ---
Subjective Date of Service Dec 29, 2016 Subjective Carli Woody is an 89-year-old woman with history of diabetes mellitus, hypertension, asthma, pneumonia, congestive heart failure, hyperlipidemia, atrial fibrillation, hypothyroidism and arthritis presenting to [facility] for shortness of breath and wheezing that began the day prior to admission. Currently under treatment for uncontrolled A fib with RVR, severe esophageal dysmotility and worsened SBO. Overnight: Patient complained about constipation. Today: This morning the patient began to vomit what appeared to be fecal material. She was quite nauseous and distress by her vomit. Exam Vital Signs Vital Sign - Last Date Time Temp Pulse Resp B/P Pulse Ox O2 Delivery O2 Flow Rate FiO2 12/29/16 10:03 Supplement Oxygen 12/29/16 09:09 36.6 115 24 118/64 92 2.00 12/25/16 19:58 30 Intake and Output 12/28/16 12/28/16 12/29/16 Cumulative From/Thru 15:00 23:00 07:00 12/21/16 08:36 - 12/29/16 06:08 Intake Total 1066 ml 1049 ml 9037 ml Output Total 550 ml 100 ml 8450 ml Balance 516 ml 949 ml 587 ml Intake Oral 450 ml 0 ml 4877 ml IV Total 616 ml 1049 ml 4160 ml Output Urine Total 550 ml 100 ml 8450 ml # Voids 2 2 23 # Bowel Movements 0 1 Exam General:Alert and oriented x3, fatigue looking, but in no apparent distress. Fluent speech, mild conversational dyspnea on 1L of O2. HEENT: NCAT. PERRLA, EOMI. Anicteric sclera. Necl: supple, No JVD noted, no lymphadenopathy. Lungs: Mild rales with moderate wheezes. No accessory muscle use. Heart: irregular irregular, no murmur appreciated. Abdomen: soft, mildly distended, no tenderness to palpation, active bowel sound. Extremities: trace edema in bilateral LE. Skin: free of rash or lesions. IVs and Medications Medications Reviewed: Medications were reviewed in detail Lab and Diagnostics Result Diagram: 12/29/16 0400 12/29/16 0400 Microbiology Urinalysis was unremarkable and culture was not indicated. Blood cultures are pending and sputum culture is pending and respiratory viral PCR panel is pending X-Rays, CTs and MRIs PROCEDURE: X-RAY ACUTE ABDOMINAL SERIES IMPRESSION: Gaseous distention of several small bowel loops within the abdomen which may be related to developing small bowel obstruction. Recommend clinical correlation and if indicated repeat examination or CT could be performed for further assessment. Dictated by: Meliton NICOLE Interpreted: Marycruz Dotson MD on 12/28/2016 at 13: 48 X-RAY CHEST ONE VIEW, PORTABLE IMPRESSION: Hadley B-lines in the peripheral lower lungs, consistent with mild interstitial pulmonary edema, and suggesting early congestive heart failure. Dictated by: Franck Nicholson M.D. on 12/21/2016 at 9:06 PROCEDURE: X-RAY BARIUM SWALLOW ESOPHAGUS IMPRESSION: 1. Trace laryngeal penetration. 2. Severe esophageal dysmotility. 3. Smooth-walled, posterior distal esophageal diverticulum. Dictated by: Meliton NICOLE Interpreted: Syd Avalos MD on 12/23/2016 at 16 :36 Cardiac Echo Impressions Interpretation Summary Left ventricular systolic function is normal without focal wall motion abnormalities with the ejection fraction estimated to be 65-70%. There is mild concentric left ventricular hypertrophy but diastolic function could not be accurately assessed due to probable rapid atrial fibrillation. There has been no significant change since the previous study. The right ventricle is not well visualized but grossly appears normal in size with probable normal systolic function. There is moderate pulmonary hypertension with the right ventricular systolic pressure estimated at 48 mmHg assuming a right atrial pressure of 8 mm Hg, and is similar compared to the previous study. The left atrial size is normal and the right atrium is borderline dilated. Both are unchanged compared to the previous study.There is mild mitral regurgitation and mild to moderate tricuspid regurgitation that are unchanged compared to the previous study. There is no other significant valvular heart disease.The ascending aorta is at the upper limits of normal in size. The patient was in probable atrial fibrillation with heart rates between 105- 133 bpm during the exam which is faster compared to the previous study. Assessment & Plan Carli Woody is an 89-year-old woman with history of diabetes mellitus, hypertension, asthma, pneumonia, congestive heart failure, hyperlipidemia, atrial fibrillation, hypothyroidism and arthritis presenting to [facility] for shortness of breath and wheezing that began the day prior to admission. Currently under treatment for uncontrolled A fib with RVR, severe esophageal dysmotility and worsened SBO. Severe esophageal dysmotility -Likely chronic, but patient has had issue with aspiration, which seems to get worse today. -Barium esophagram revealed severe esophageal dysmotility on 12/23. -Consulted Dr. Houston (GI), who kindly agreed to see the patient. -Speech therapy recommended continue with the nectar thick diet and no further recommendation. -Tentative plan for EGD was postponed in light of worsening SBO. Small bowel obstruction, new, worsening. -KUB consistent with SBO -It is likely that this is partly due to constipation. Last BM was 4 days ago. Bowel regiment started yesterday. -Will keep the patient NPO at this point and start IVF with 1/2NS at 80mls/hr given her hypernatremia and CHF. -NG tube to be placed. Will discuss options with son. If he chooses to proceed with surgery will consult the surgical team. Chronic atrial fibrillation with rapid ventricular response, POA, improved. -Heart rate has been in the 90s-100s. Appreciate cardiology's input. The plan is to continue with aggressive rate control. Patient was on Diltiazem and Esmolol gtt for a day on 12/26/16. -Due to patient's NPO status cardiology stopped PO medications and proceeded with Cardizem drip for rate control. -Continue Coumadin per pharmacy when able. INR supratherapeutic today. -Continue Telemetry monitoring. Productive cough, stable. -Patient reports persistent lung exam reveals more rales and wheezes. -Possible causes include aspiration pneumonia, healthcare-acquire pneumonia, Asthma exacerbation, or pulmonary edema due CHF decompensation. -Lung exam revealed some rales and wheezes, but patient has no signs of fluid overload on exam. -CXR normal, sputum culture pending. -Elevated WBC but normal vital signs. Possibly due to new infection vs. steroid use. -Continue to monitor symptoms and signs of infection. Acute respiratory failure with hypoxia in the setting of pulmonary hypertension , multifactorial, POA and improving. -Multifactorial, likely related to asthma exacerbation and diastolic heart failure. -Continue O2 as needed. Continue CPAP at night. -Will hold Lasix given low BP. -Patient would like benefit from sleep study as outpatient and likely has MARILYNN diagnosis contributing to moderate pulmonary hypertension Acute on chronic diastolic congestive heart failure, with atrial fibrillation with rapid ventricular response, present times admission. Active improving -Hold Lasix 40 mg IV. Will resume it when her BP improves. -Continue strict I/O. -We will continue with diuresis and BiPAP as needed. -Hold Losartan due to hypotension. Acute asthma exacerbation likely due to URI, present at the time of admission. Active and improving. - Continue Solu-Medrol 60 mg IV every 8 hours - Continue Ipratropium Q6H with Levalbuterol Q8H scheduled as well as Q2H PRN levalbuterol. - Sputum and blood cultures on admission were negative. Will repeat sputum culture today. Diabetes mellitus 2, POA. -A1c 6.4. Elevated BG likely partly due to steroid therapy. -Continue NPH 10 units Q8H. -High insulin correctional scale. -Hold home glipizide. Hypothyroidism, chronic. -Levothyroxine was in the setting of poorly controlled A Fib with overcorrected hypothyroidism. This was restarted on 12/26/16. Osteoarthritis (doubt RA) as suggested in the computerized record, chronic and stable. -Continue supportive care Hyperlipidemia , POA and stable - Continue atorvastatin Hypertension. Chronic. Controlled. - Will hold losartan and Furosemide 40mg IV BID due to low BP. Depression and anxiety, present at the time of admission. Active and stable - Continue citalopram History of multiple Urinary tract infections, not currently active - Current urinalysis unremarkable and culture is not indicated. - Monitor closely. Dispo: Uncertain at this time. GI Prophylaxis: H2 safia VTE Prophylaxis: Theraputic Anticoag with Warfarin Resuscitation Status: DNR/DNI:Do Not Resuscitate/Intubate (Discussed with patient at length and she wishes to be a DO NOT RESUSCITATE/DO NOT INTUBATE.) Attending Statement Patient seen and examined with house staff. Agree with all attached documentation. Arlen Madrid DO Dec 29, 2016 10:47 Tristan Hart MD Dec 29, 2016 17:05
--- NOTE | 2016-12-29 13:40 | PCM.PHAPRO ---
Progress Date of Service: Dec 29, 2016 Warfarin dosing Date Dec 22-Dec 23-Nov 24-Dec 25-Dec 26-Dec 27-Dec 28-Dec 29-Dec INR 2.05 1.77 2.60 3.19 3.05 4.09 3.84 3.86 4.10 INR change -0.28 0.83 0.59 -0.14 1.04 -0.25 0.02 0.24 Warf Dose 2.5 2.5 0.5 0.5 0.5 HOLD HOLD HOLD HOLD Niyah Hernandez PharmD Dec 29, 2016 13:40
--- NOTE | 2016-12-29 15:11 | NUR ---
Social Work: MULTIDISCIPLINARY ROUNDS Per Multidisciplinary rounds, pt continues to require hospitalization and is now appears to have fecal matter in her emesis. Cardiology, ST continue to follow and GI has been consulted to manage what appears to be a severe SBO. Pt has been accepted at [facility] with Dr. Kelley to follow at discharge. ANNA Gramajo
--- NOTE | 2016-12-29 17:40 | NUR ---
NG/HEART RATE Assumed care at 1600 from Sandra CONROY. Reinserted NG tube and patent to continuous suction, brown fecal smelling output. Diltiazem drip running at 15ml/hr, heart rate remains 100-120. Blood sugar 254, coverage given as well as Amanda-medrol. No PO medications or rectal medication to be given to patient due to bowel obstruction. Ativan Q4, 2L NC, Plan endoscopy vs palliative.
--- NOTE | 2016-12-29 22:41 | NUR ---
Report Report given to Corina CONROY assuming care of patient at 2230, all questions answered, Diltiazem gtt infusing at 15mg.hr, HR 100-120's A-Fib, patient resting and calm at this time.
[2016-12-30] VITALS (12 sets, daily range): BP systolic 102–137; BP diastolic 35–80; PULSE 101–118; RESP 16–26; O2SAT 92–96
[2016-12-30] MEDS: MethylprednisoLONE Sodium Succinate 40 mg/mL Inj IVPUSH SCH ×3 (00:10→18:42)
[2016-12-30] MEDS: Insulin Human NPH 100 Unit/mL 3 mL Inj SUBQ SCH (00:14)
--- NOTE | 2016-12-30 02:36 | NUR ---
Ng tube replaced Pt pulled NG tube out and a new NG tube inserted without issues noted. NG tube on continuos suction with brown colored output noted. Pt has no s/sx of distress. care continues.
[2016-12-30 03:24] LABS: INR 3.94 ratio
[2016-12-30 03:31] LABS: Magnesium 2.8 mg/dL (1.6-2.6)
[2016-12-30] MEDS: Diltiazem Inj 125 MG in 0.9% Sodium Chloride 100 ML, Pharmacy To Mix 1 EA IV SCH ×2 (04:56→13:42)
--- NOTE | 2016-12-30 05:39 | NUR ---
Diltiazem drip/BG/Sodium Diltiazem running at 15ml/hr with HR in the low 100s. BG 73/73 and no insulin coverage given. no s/sx of hypo/hyperglycemia noted. Pt continues with Solu-medrol and NPO status at this time. Sodium 147 and NS 0.45% running at 80ml/hr. Care continues.
[2016-12-30] MEDS: Ipratropium 0.02% 0.5 mg/2.5 mL Inhalation Solution NEB SCH ×3 (07:18→22:21)
[2016-12-30] MEDS: Levalbuterol 1.25 mg/0.5mL Inhalation Solution NEB SCH ×3 (07:18→22:20)
[2016-12-30] MEDS: Insulin LISPRO 300 Unit/3 mL Inj SUBQ SCH ×4 (08:00→21:38)
--- NOTE | 2016-12-30 10:38 | PCM.PHAPRO ---
Progress Date of Service: Dec 30, 2016 Warfarin dosing Date Dec 22-Dec 23-Nov 24-Dec 25-Dec 26-Dec 27-Dec 28-Dec 29-Dec 30-Dec INR 2.05 1.77 2.60 3.19 3.05 4.09 3.84 3.86 4.10 3.94 INR change -0.28 0.83 0.59 -0.14 1.04 -0.25 0.02 0.24 -0.16 Warf Dose 2.5 2.5 0.5 0.5 0.5 HOLD HOLD HOLD HOLD HOLD Madhu Navarro Dec 30, 2016 10:38
[2016-12-30] MEDS: Fluticasone-Salmeterol 100-50 Inhaler INHALATION SCH ×2 (10:57→21:35)
--- NOTE | 2016-12-30 11:20 | NUR ---
NUTRITION FOLLOW-UP: ASSESS: Pt is an 89yo F admitted for asthma exacerbation and CHF. Cardiology is involved. Pt has been experiencing severe esophageal dysmotility. ST has been involved with recommendation of full liquid diet with nectar thick liquids. Unfortunately, the pt has been experiencing severe nausea and vomiting and on 12/29 she had some fecal matter in her emesis. Pt is currently NPO x2 days and has NGT in place for suction. GI is holding off on EGD due to SBO. Pt has not had a BM since 12/22. PO prior to NPO status was fair at 25-100% of meal on FL diet. Wt has overall been stable during hospital stay. PMHX: hypothyroidism, osteoarthristis, asthma, CHF, DM, HLD, HTN, Afib, UTI LABS: Reviewed. Na 147, Bun 52, harness cutter 1.34, Mg 2.8 MEDS: Reviewed. solu-medrol, Bisacodyl GI: 0 BM since 12/22, n/v, esophageal dysmotility , NGT for suction SKIN: Yonathan 17 CURRENT WTS: 69.2kg, BMI 26.2kg/m2, admit wt 69.4kg, IBW: 54.5kg DIET: NPO x2 days EST. NEEDS: Kcals: 1730-2075kcal/day (25-30kcal/kg) Pro: 70-85g/day (1.0-1.2g/kg) NUTRITION DIAGNOSIS: 1.) Inadequate oral intake related to altered GI function as evidence by persistent n/v, concern for SBO, and possible esophageal dysmotility --PERSISTS NUTRITION INTERVENTION: 1.) Will continue to monitor NPO and GI status. If pt requires prolonged NPO status due to GI complications recommend nutrition support be considered if this fits within pt's goals of care. 2.) If TPN to be started, recommend start TPN at 150g Dex, 50g AA and 30g lipids to provide 1010kcal and 50g pro. Once tolerated, recommend slowly advance towards goal rate of 275g Dex, 85g AA and 55g lipids to provide 1825kcal and 85g pro (100% estimated needs). Dex load 2.75mg/kg/min MONITOR / EVAL: NPO, GI, wt, labs, POC, nutrition status. Will continue to monitor per high nutrition risk guidelines.
[2016-12-30] MEDS ORDERED: Digoxin 0.25 mg/mL 2 mL Inj IV SCH (12:00)
[2016-12-30] MEDS ORDERED: Potassium Chloride Inj 20 MEQ in Dextrose 5% 250 ML IV ONE (12:05)
--- NOTE | 2016-12-30 15:51 | NUR ---
Social Work: Multidisciplinary Rounds. Pt discussed in am rounds. Pt sw status remains unchanged from previous day. Still anticipate pt to discharge to [facility] Skilled rehab with Dr. Kelley to follow. LINE DECORATOR to continue to follow. ANNA Gramajo
--- NOTE | 2016-12-30 16:04 | PCM.PNMED ---
Subjective Date of Service Dec 30, 2016 Subjective Patient is feeling better today than yesterday. She is more alert though still remains sleepy. She is answering questions appropriately and mentioned that she has had a bowel obstruction a long time ago but this feels different. She is not having any fever or chills, she is not having abdominal pain. Last gas she passed was 3 days ago. Exam Vital Signs Vital Sign - Last Date Time Temp Pulse Resp B/P Pulse Ox O2 Delivery O2 Flow Rate FiO2 12/30/16 08:00 116 12/30/16 07:30 36.7 26 129/58 93 Nasal Cannula 2.00 12/25/16 19:58 30 Intake and Output 12/29/16 12/29/16 12/30/16 Cumulative From/Thru 15:00 23:00 07:00 12/21/16 08:36 - 12/30/16 05:28 Intake Total 958 ml 926 ml 08234 ml Output Total 100 ml 8550 ml Balance 858 ml 926 ml 2371 ml Intake Oral 0 ml 0 ml 4877 ml IV Total 958 ml 906 ml 6024 ml Tube Irrigant 20 ml 20 ml Output Urine Total 100 ml 8550 ml # Voids 1 2 26 # Bowel Movements 0 1 Exam General: sleepy, resting comfortably, in no acute distress HEENT: Normocephalic, atraumatic. External ears without defect. Anicteric sclerae, moist conjunctivae, NG tube in place. Neck: Supple. Cardiovascular: irregularly irregular rhythm, no murmurs, rubs, or gallops appreciated Pulmonary: decreased air movement, no use of accessory muscles. Abdomen: Bowel tones low. diffusely tender, moderately distended but worse than yesterday. Well healing, well approximated Extremities: Pitting edema better than yesterday. No clubbing, cyanosis, or lymphadenopathy appreciated. SCDs in place Skin: Normal temperature, turgor, and texture; no rash, ulcers, or subcutaneous nodules appreciated. Neurological: Cranial nerves grossly intact. speaking in phrases Psychiatric: Normal mood and affect. LOC improved since yesterday. Lab and Diagnostics Result Diagram: 12/29/16 0400 12/30/16 0240 Microbiology Urinalysis was unremarkable and culture was not indicated. Blood cultures are pending and sputum culture is pending and respiratory viral PCR panel is pending X-Rays, CTs and MRIs PROCEDURE: X-RAY ACUTE ABDOMINAL SERIES IMPRESSION: Gaseous distention of several small bowel loops within the abdomen which may be related to developing small bowel obstruction. Recommend clinical correlation and if indicated repeat examination or CT could be performed for further assessment. Dictated by: Meliton NICOLE Interpreted: Marycruz Dotson MD on 12/28/2016 at 13: 48 X-RAY CHEST ONE VIEW, PORTABLE IMPRESSION: Hadley B-lines in the peripheral lower lungs, consistent with mild interstitial pulmonary edema, and suggesting early congestive heart failure. Dictated by: Franck Nicholson M.D. on 12/21/2016 at 9:06 PROCEDURE: X-RAY BARIUM SWALLOW ESOPHAGUS IMPRESSION: 1. Trace laryngeal penetration. 2. Severe esophageal dysmotility. 3. Smooth-walled, posterior distal esophageal diverticulum. Dictated by: Meliton NICOLE Interpreted: Syd Avalos MD on 12/23/2016 at 16 :36 Cardiac Echo Impressions Interpretation Summary Left ventricular systolic function is normal without focal wall motion abnormalities with the ejection fraction estimated to be 65-70%. There is mild concentric left ventricular hypertrophy but diastolic function could not be accurately assessed due to probable rapid atrial fibrillation. There has been no significant change since the previous study. The right ventricle is not well visualized but grossly appears normal in size with probable normal systolic function. There is moderate pulmonary hypertension with the right ventricular systolic pressure estimated at 48 mmHg assuming a right atrial pressure of 8 mm Hg, and is similar compared to the previous study. The left atrial size is normal and the right atrium is borderline dilated. Both are unchanged compared to the previous study.There is mild mitral regurgitation and mild to moderate tricuspid regurgitation that are unchanged compared to the previous study. There is no other significant valvular heart disease.The ascending aorta is at the upper limits of normal in size. The patient was in probable atrial fibrillation with heart rates between 105- 133 bpm during the exam which is faster compared to the previous study. Assessment & Plan Patient is an 89-year-old female hospitalized for asthma exacerbation and congestive heart failure. Patient had difficulty swallowing, barium swallow showed severe esophageal dysmotility. Patient will likely benefit from EGD however she seems to be having a developing bowel obstruction. Patient status has improved since yesterday however is still obstructed. This is being managed by the primary team. We will continue to follow along and performe EGD when indicated. I have seen and examined the patient and agree with above. GI Prophylaxis: H2 safia VTE Prophylaxis: Theraputic Anticoag with Warfarin Resuscitation Status: DNR/DNI:Do Not Resuscitate/Intubate (Discussed with patient at length and she wishes to be a DO NOT RESUSCITATE/DO NOT INTUBATE.) Ivone Ferrer DO Dec 30, 2016 10:36 Austin Houston MD Dec 30, 2016 19:04
--- NOTE | 2016-12-30 17:03 | DRSVH ---
PROCEDURE: X-RAY KUB ([id number]) INDICATIONS: SBO TECHNIQUE: One view of the abdomen acquired. COMPARISON: [facility], CR, XR KUB, 12/29/2016, 9:33. FINDINGS: Surgical changes and devices: Nasogastric tube looped in the gastric fundus. Bowel: There is residual barium contrast material within the ascending and transverse colon. There are persistent dilated loops of small bowel throughout the abdomen measuring up to 5.0 cm in diameter . Soft tissues: No definite suspicious abdominal calcifications. Bones: No suspicious bony lesions. IMPRESSION: 1. Persistent gaseous distention of multiple bowel loops within the abdomen suspicious for small ziggy l obstruction. 2. Persistent barium within the colon not significantly changed from 12/29/2016. Dictated by: Meliton Benitez [facility] Interpreted: Syd Avalos MD on 12/30/2016 at 14:14 Approved by: Syd Avalos M.D. on 12/30/2016 at 17:01
--- NOTE | 2016-12-30 17:42 | PCM.PNMED ---
Subjective Date of Service Dec 30, 2016 Subjective No acute event overnight. Today, patient appears somnolent and minimally interactive. Nursing reports that her HR jumped to 150s while transferring from bed to chair, but went down to 110s at rest. NGT output total of >400mls. Patient denies any pain complaint or distress, but is feeling weak. She has not passed gas for 3 days. No BM for a week now. Diltiazem running at 15ml/hr, HR 90s-110s. Exam Vital Signs Vital Sign - Last Date Time Temp Pulse Resp B/P Pulse Ox O2 Delivery O2 Flow Rate FiO2 12/30/16 05:17 101 12/30/16 04:15 37.7 18 108/59 96 Room Air 12/29/16 19:35 2.00 12/25/16 19:58 30 Intake and Output 12/29/16 12/29/16 12/30/16 Cumulative From/Thru 15:00 23:00 07:00 12/21/16 08:36 - 12/30/16 05:28 Intake Total 958 ml 926 ml 81119 ml Output Total 100 ml 8550 ml Balance 858 ml 926 ml 2371 ml Intake Oral 0 ml 0 ml 4877 ml IV Total 958 ml 906 ml 6024 ml Tube Irrigant 20 ml 20 ml Output Urine Total 100 ml 8550 ml # Voids 1 2 26 # Bowel Movements 0 1 Exam General:somnolent but easily arousable, fatigue looking, but in no apparent distress. Resting comfortably on her bed. HEENT: NCAT. PERRLA, EOMI. Anicteric sclera. Necl: supple, No JVD noted, no lymphadenopathy. Lungs: Mild rales with mild wheezes. No accessory muscle use. Heart: irregular irregular, no murmur appreciated. Abdomen: soft, mildly distended, no tenderness to palpation, hypoactive bowel sound. Extremities: trace edema in bilateral LE. Skin: free of rash or lesions. IVs and Medications Medications Reviewed: Medications were reviewed in detail Lab and Diagnostics Result Diagram: 12/29/16 0400 12/30/16 0240 Microbiology Urinalysis was unremarkable and culture was not indicated. Blood cultures are pending and sputum culture is pending and respiratory viral PCR panel is pending X-Rays, CTs and MRIs PROCEDURE: X-RAY ACUTE ABDOMINAL SERIES IMPRESSION: Gaseous distention of several small bowel loops within the abdomen which may be related to developing small bowel obstruction. Recommend clinical correlation and if indicated repeat examination or CT could be performed for further assessment. Dictated by: Meliton NICOLE Interpreted: Marycruz Dotson MD on 12/28/2016 at 13: 48 X-RAY CHEST ONE VIEW, PORTABLE IMPRESSION: Hadley B-lines in the peripheral lower lungs, consistent with mild interstitial pulmonary edema, and suggesting early congestive heart failure. Dictated by: Franck Nicholson M.D. on 12/21/2016 at 9:06 PROCEDURE: X-RAY BARIUM SWALLOW ESOPHAGUS IMPRESSION: 1. Trace laryngeal penetration. 2. Severe esophageal dysmotility. 3. Smooth-walled, posterior distal esophageal diverticulum. Dictated by: Meliton NICOLE Interpreted: Syd Avalos MD on 12/23/2016 at 16 :36 Cardiac Echo Impressions Interpretation Summary Left ventricular systolic function is normal without focal wall motion abnormalities with the ejection fraction estimated to be 65-70%. There is mild concentric left ventricular hypertrophy but diastolic function could not be accurately assessed due to probable rapid atrial fibrillation. There has been no significant change since the previous study. The right ventricle is not well visualized but grossly appears normal in size with probable normal systolic function. There is moderate pulmonary hypertension with the right ventricular systolic pressure estimated at 48 mmHg assuming a right atrial pressure of 8 mm Hg, and is similar compared to the previous study. The left atrial size is normal and the right atrium is borderline dilated. Both are unchanged compared to the previous study.There is mild mitral regurgitation and mild to moderate tricuspid regurgitation that are unchanged compared to the previous study. There is no other significant valvular heart disease.The ascending aorta is at the upper limits of normal in size. The patient was in probable atrial fibrillation with heart rates between 105- 133 bpm during the exam which is faster compared to the previous study. Assessment & Plan Carli Woody is an 89-year-old woman with history of diabetes mellitus, hypertension, asthma, pneumonia, congestive heart failure, hyperlipidemia, atrial fibrillation, hypothyroidism and arthritis presenting to [facility] for shortness of breath and wheezing that began the day prior to admission. Currently under treatment for uncontrolled A fib with RVR, severe esophageal dysmotility and worsened SBO. Small bowel obstruction, new, worsening. -Likely due to adhesion. Upon further questioning, patient admits that she has had several abdominal surgeries, including a bowel resection for possible colon mass in . She states that she got a "burst gut" at that time. -KUB consistent with SBO. We planned to do a CT contrast, but patient is allergic to contrast. In addition, I discussed with Dr. Syd Avalos, who suggested that CT scan will not be helpful with the persistent Barium in the colon. He recommended that we repeat the KUB and consider CT when the Barium is out of the system. -Continue NPO, NGT, and IVF with 1/2NS at 80mls/hr given her hypernatremia and CHF. -Discussed options with both the patient and son Jacky this afternoon. Patient insists that we pursue full treatment, including surgery, and son agreed with the plan. Will consult general surgery in the morning. Severe esophageal dysmotility, presume chronic. -Patient has had issue with aspiration, which has progressively worsened over the course of the hospital stay. -Barium esophagram revealed severe esophageal dysmotility on 12/23. -Followed by GI.Tentative plan for EGD was postponed in light of worsening SBO. -Speech therapy recommended continue with the nectar thick diet and no further recommendation. Chronic atrial fibrillation with rapid ventricular response, POA, improved. -Heart rate has been in the 90s-100s. Appreciate cardiology's input. The plan is to continue with aggressive rate control. Patient was on Diltiazem and Esmolol gtt x1 day on 12/26/16. -Due to patient's NPO status cardiology stopped PO medications and proceeded with Cardizem drip for rate control. -Continue Coumadin per pharmacy when able. -Continue Telemetry monitoring. Productive cough, stable. -Possible causes include aspiration pneumonia, healthcare-acquired pneumonia, Asthma exacerbation, or pulmonary edema due CHF decompensation. -Lung exam revealed some rales and wheezes. -CXR normal, sputum culture pending. -Elevated WBC, now trending down. Normal vital signs. -Continue to monitor symptoms and signs of infection. Acute respiratory failure with hypoxia in the setting of pulmonary hypertension , multifactorial, POA and improving. -Multifactorial, likely related to asthma exacerbation and diastolic heart failure. -Continue O2 as needed. Continue CPAP at night. -Will hold Lasix given low BP. -Patient would like benefit from sleep study as outpatient and likely has MARILYNN diagnosis contributing to moderate pulmonary hypertension Acute on chronic diastolic congestive heart failure, with atrial fibrillation with rapid ventricular response, present times admission. Active improving -Hold Lasix 40 mg IV. Will resume it when her BP improves. -Continue strict I/O. -We will continue with diuresis and BiPAP as needed. -Hold Losartan due to hypotension. Acute asthma exacerbation likely due to URI, present at the time of admission. Active and improving. - Continue Solu-Medrol 60 mg IV every 8 hours - Continue Ipratropium Q6H with Levalbuterol Q8H scheduled as well as Q2H PRN levalbuterol. - Sputum and blood cultures on admission were negative. Will repeat sputum culture today. Diabetes mellitus 2, POA. -A1c 6.4. Elevated BG likely partly due to steroid therapy. -D/C NPH 10 units Q8H due to NPO status and BG has been low-normal. -High insulin correctional scale. -Hold home glipizide. Hypothyroidism, chronic. -Levothyroxine was in the setting of poorly controlled A Fib with overcorrected hypothyroidism. This was restarted on 12/26/16. Osteoarthritis (doubt RA) as suggested in the computerized record, chronic and stable. -Continue supportive care Hyperlipidemia , POA and stable - Continue atorvastatin Hypertension. Chronic. Controlled. - Will hold losartan and Furosemide 40mg IV BID due to low BP. Depression and anxiety, present at the time of admission. Active and stable - Continue citalopram History of multiple Urinary tract infections, not currently active - Current urinalysis unremarkable and culture is not indicated. - Monitor closely. Dispo: Uncertain at this time. Pain Evaluation: Adequate Pain Control GI Prophylaxis: H2 safia VTE Prophylaxis: Theraputic Anticoag with Warfarin Resuscitation Status: DNR/DNI:Do Not Resuscitate/Intubate (Discussed with patient at length and she wishes to be a DO NOT RESUSCITATE/DO NOT INTUBATE.) Attending Statement The patient was seen and examined with staff. Agree with all attached documentation. Marquise Ornates DO Dec 30, 2016 06:56 Tristan Hart MD Dec 30, 2016 17:52
--- NOTE | 2016-12-30 19:14 | NUR ---
Activity/Tele/Nuero Patient a/o x self and family, forgetful but reorients easily. Patient oob with one person assist to bsc, voiding juli urine, no flatus or BM this shift. Patient impulsive at times, bed alarm on for safety. Tele A fib 90-120's at rest and 120-150's with activity. Diltiazem gtt @ 15 mg/hr. Digoxin IV given per MD orders. Patient amb in room with physical therapy and sat in chair for approx 45 min. NGT cont suction, draining brown liquid.
[2016-12-31] VITALS (8 sets, daily range): BP systolic 109–146; BP diastolic 41–75; PULSE 92–126; RESP 16–32; O2SAT 92–96
[2016-12-31] MEDS: MethylprednisoLONE Sodium Succinate 40 mg/mL Inj IVPUSH SCH ×3 (00:05→16:30)
[2016-12-31] MEDS: Diltiazem Inj 125 MG in 0.9% Sodium Chloride 100 ML, Pharmacy To Mix 1 EA IV SCH ×3 (00:14→18:51)
[2016-12-31 03:09] LABS: BASOPHILS % (AUTO) 0.1 % (0-3); EOSINOPHILS % (AUTO) 0 % (0-5); MONOCYTES % (AUTO) 3.2 % (4-12); Mean Corpuscular Hemoglobin 28.6 pg (27.0-35.0); Mean Corpuscular Volume 93.5 fL (81-100); NEUTROPHILS % (AUTO) 95.3 % (40-74); Platelet Count 235 bil/L (150-400)
[2016-12-31 03:30] LABS: INR 3.06 ratio
[2016-12-31 03:38] LABS: Magnesium 2.6 mg/dL (1.6-2.6)
--- NOTE | 2016-12-31 05:29 | NUR ---
NG Pt reports mild abdominal discomfort with movement along with intermittent belching. NG tube placement rechecked via air insertion and stethoscope auscultation. Good placement. Minimal output from NG ~150. Pt reports abdominal pain is similar to what she has been feeling and has not changed or worsened (although she denied pain earlier in shift0. Abdomen is nontender to palpation. R NG tube remains to LIWS. MD notified of NG and abdominal discomfort. Will continue to monitor. Care ongoing
[2016-12-31] MEDS: Insulin LISPRO 300 Unit/3 mL Inj SUBQ SCH ×4 (08:20→21:34)
[2016-12-31] MEDS: Levalbuterol 1.25 mg/0.5mL Inhalation Solution NEB SCH ×3 (09:12→21:11)
[2016-12-31] MEDS: Ipratropium 0.02% 0.5 mg/2.5 mL Inhalation Solution NEB SCH ×3 (09:12→21:11)
[2016-12-31] MEDS: Fluticasone-Salmeterol 100-50 Inhaler INHALATION SCH ×2 (10:03→21:11)
[2016-12-31] MEDS: Pantoprazole 4 mg/mL 10 mL Inj IVPUSH SCH (10:04)
--- NOTE | 2016-12-31 13:30 | PCM.PNMED ---
Subjective Date of Service Dec 31, 2016 Subjective She feels a lot better today. Her abdomen is less painful. No nausea. She denies flatus. She is not really short of breath and does not really feel palpitations. She is a little less weak today. She does note that she is tired of these medical measures and is considering not treating her atrial fibrillation spelled all obstruction. Exam Vital Signs Vital Sign - Last Date Time Temp Pulse Resp B/P Pulse Ox O2 Delivery O2 Flow Rate FiO2 12/31/16 09:13 105 16 95 Nasal Cannula 2.00 12/31/16 03:33 36.9 121/61 12/25/16 19:58 30 Intake and Output 12/30/16 12/30/16 12/31/16 Cumulative From/Thru 15:00 23:00 07:00 12/21/16 08:36 - 12/31/16 05:54 Intake Total 1542 ml 0 ml 78924 ml Output Total 700 ml 300 ml 9550 ml Balance 842 ml -300 ml 2913 ml Intake Oral 0 ml 0 ml 4877 ml IV Total 1542 ml 7566 ml Tube Irrigant 20 ml Output Urine Total 250 ml 200 ml 9000 ml Gastric Drainage Total 450 ml 100 ml 550 ml # Voids 4 30 # Bowel Movements 1 Exam Alert and oriented -3, no distress. Fluent speech Anicteric sclera. Lungs are clear with normal rate and effort Heart is irregular without murmur gallop or rub, mild tachycardia. Abdomen soft nontender, distended and hypertympanic Extremities are free of edema. Skin is free of rash or lesions. IVs and Medications Medications Reviewed: Medications were reviewed in detail Lab and Diagnostics Result Diagram: 12/31/16 0305 12/31/16 0305 Microbiology Urinalysis was unremarkable and culture was not indicated. Blood cultures are pending and sputum culture is pending and respiratory viral PCR panel is pending X-Rays, CTs and MRIs PROCEDURE: X-RAY ACUTE ABDOMINAL SERIES IMPRESSION: Gaseous distention of several small bowel loops within the abdomen which may be related to developing small bowel obstruction. Recommend clinical correlation and if indicated repeat examination or CT could be performed for further assessment. Dictated by: Meliton NICOLE Interpreted: Marycruz Dotson MD on 12/28/2016 at 13: 48 X-RAY CHEST ONE VIEW, PORTABLE IMPRESSION: Hadley B-lines in the peripheral lower lungs, consistent with mild interstitial pulmonary edema, and suggesting early congestive heart failure. Dictated by: Franck Nicholson M.D. on 12/21/2016 at 9:06 PROCEDURE: X-RAY BARIUM SWALLOW ESOPHAGUS IMPRESSION: 1. Trace laryngeal penetration. 2. Severe esophageal dysmotility. 3. Smooth-walled, posterior distal esophageal diverticulum. Dictated by: Meliton Benitez RRA Interpreted: Syd Avalos MD on 12/23/2016 at 16 :36 Cardiac Echo Impressions Interpretation Summary Left ventricular systolic function is normal without focal wall motion abnormalities with the ejection fraction estimated to be 65-70%. There is mild concentric left ventricular hypertrophy but diastolic function could not be accurately assessed due to probable rapid atrial fibrillation. There has been no significant change since the previous study. The right ventricle is not well visualized but grossly appears normal in size with probable normal systolic function. There is moderate pulmonary hypertension with the right ventricular systolic pressure estimated at 48 mmHg assuming a right atrial pressure of 8 mm Hg, and is similar compared to the previous study. The left atrial size is normal and the right atrium is borderline dilated. Both are unchanged compared to the previous study.There is mild mitral regurgitation and mild to moderate tricuspid regurgitation that are unchanged compared to the previous study. There is no other significant valvular heart disease.The ascending aorta is at the upper limits of normal in size. The patient was in probable atrial fibrillation with heart rates between 105- 133 bpm during the exam which is faster compared to the previous study. Assessment & Plan Small bowel obstruction, new, and stable. She has not clearly improving or deteriorating with her NG tube. -Likely due to adhesion. Upon further questioning, patient admits that she has had several abdominal surgeries, including a bowel resection for possible colon mass in . She states that she got a "burst gut" at that time. -KUB consistent with SBO. We planned to do a CT contrast, but patient is allergic to contrast. In addition, I discussed with Dr. Syd Avalos, who suggested that CT scan will not be helpful with the persistent Barium in the colon. He recommended that we repeat the KUB and consider CT when the Barium is out of the system. -Continue NPO, NGT, and IVF with 1/2NS at 80mls/hr given her hypernatremia and CHF. -We discussed options with patient again this morning in the absence of her side and she declared that she is wanting to not continue with her current treatment measures and let nature take its course. Severe esophageal dysmotility, presume chronic. -Patient has had issue with aspiration, which has progressively worsened over the course of the hospital stay. -Barium esophagram revealed severe esophageal dysmotility on 12/23. -Followed by GI.Tentative plan for EGD was postponed in light of worsening SBO. -Speech therapy recommended continue with the nectar thick diet and no further recommendation. We will hold off on further evaluation and to clarify her revised level of care. Chronic atrial fibrillation with rapid ventricular response, POA, improved. -Heart rate has been in the 90s-100s. Appreciate cardiology's input. The plan is to continue with aggressive rate control. Patient was on Diltiazem and Esmolol gtt x1 day on 12/26/16. -Due to patient's NPO status cardiology stopped PO medications and proceeded with Cardizem drip for rate control. -Continue Coumadin per pharmacy when able. -Continue Telemetry monitoring. Continue to try to wean Cardizem drip as able. Acute respiratory failure with hypoxia in the setting of pulmonary hypertension , multifactorial, POA and improving. -Multifactorial, likely related to asthma exacerbation and diastolic heart failure. -Continue O2 as needed. Continue CPAP at night. -Will hold Lasix given low BP. -Patient would like benefit from sleep study as outpatient and likely has MARILYNN diagnosis contributing to moderate pulmonary hypertension Acute on chronic diastolic congestive heart failure, with atrial fibrillation with rapid ventricular response, present times admission. Active improving -Hold Lasix 40 mg IV. Will resume it when her BP improves. -Continue strict I/O. -We will continue with diuresis and BiPAP as needed. -Hold Losartan due to hypotension. Acute asthma exacerbation likely due to URI, present at the time of admission. Active and improving. - Continue Solu-Medrol 60 mg IV every 8 hours - Continue Ipratropium Q6H with Levalbuterol Q8H scheduled as well as Q2H PRN levalbuterol. - Sputum and blood cultures on admission were negative. Will repeat sputum culture today. Diabetes mellitus 2, POA. Uncontrolled. -A1c 6.4. Elevated BG likely partly due to steroid therapy. -D/C NPH 10 units Q8H due to NPO status and BG has been low-normal. -High insulin correctional scale. -Hold home glipizide. We will Lantus 101 now. Hypothyroidism, chronic. -Levothyroxine was in the setting of poorly controlled A Fib with overcorrected hypothyroidism. This was restarted on 12/26/16. Osteoarthritis (doubt RA) as suggested in the computerized record, chronic and stable. -Continue supportive care Hyperlipidemia , POA and stable - Continue atorvastatin Hypertension. Chronic. Controlled. - Will hold losartan and Furosemide 40mg IV BID due to low BP. Depression and anxiety, present at the time of admission. Active and stable - Continue citalopram History of multiple Urinary tract infections, not currently active - Current urinalysis unremarkable and culture is not indicated. - Monitor closely. Dispo: Uncertain at this time. Pain Evaluation: Adequate Pain Control GI Prophylaxis: H2 safia VTE Prophylaxis: Theraputic Anticoag with Warfarin Resuscitation Status: DNR/DNI:Do Not Resuscitate/Intubate (Discussed with patient at length and she wishes to be a DO NOT RESUSCITATE/DO NOT INTUBATE.) GI Prophylaxis: H2 safia VTE Prophylaxis: Theraputic Anticoag with Warfarin Resuscitation Status: DNR/DNI:Do Not Resuscitate/Intubate (Discussed with patient at length and she wishes to be a DO NOT RESUSCITATE/DO NOT INTUBATE.) Tristan Hart MD Dec 31, 2016 13:30
[2016-12-31] MEDS ORDERED: Insulin GLARgine 100 Unit/mL Syringe SUBQ ONE (13:40)
--- NOTE | 2016-12-31 15:41 | NUR ---
Social Work: Multidisciplinary Rounds Pt not yet medically stable for discharge. Pt expressed interest to MD in possible comfort measures. MD will discuss this with the pt today. TELEPHONE TECHNICIAN to continue to follow. Sw status remains unchanged at this time. ANNA Gramajo
--- NOTE | 2016-12-31 16:00 | NUR ---
Gi/Pain/CV/Activity rare BTs; denies abd pain or discomfort, even with gentle abd assessment. Assists w/ turning; frequently tries to sit up in bed, swing legs between side rail & end of bed. Bed alarm on @ all times; intermittently needing 1:1 staff @ bedside for calming & reassurance measures. A-fib 90s-120s. Diltiazem gtt @ 15mg/hr as ordered. Pt is NPO. 2 person assist to BSC/no stool after ducolax supp administered. Upon rectal exam, no stool found in rectal vault.
--- NOTE | 2016-12-31 17:55 | NUR ---
Pt pulled out NGT/difficult re-insertion MD notified. 1:1 staff @ bedside for pt safety.
[2016-12-31] MEDS: Nystatin 100,000 Unit/mL 5 mL Suspension PO SCH ×2 (18:00→21:34)
[2017-01-01] VITALS (8 sets, daily range): BP systolic 113–129; BP diastolic 41–55; PULSE 89–128; RESP 16–34; O2SAT 94–97
[2017-01-01] MEDS: MethylprednisoLONE Sodium Succinate 40 mg/mL Inj IVPUSH SCH ×2 (00:06→09:18)
[2017-01-01] MEDS: Diltiazem Inj 125 MG in 0.9% Sodium Chloride 100 ML, Pharmacy To Mix 1 EA IV SCH ×2 (00:07→09:18)
[2017-01-01 03:21] LABS: Mean Corpuscular Hemoglobin 29.7 pg (27.0-35.0); Mean Corpuscular Volume 92.8 fL (81-100)
--- NOTE | 2017-01-01 03:28 | NUR ---
resp status hob up, ls=end exp wheezes and squeaks, faint crackles scattered t/o, md aware, discussed possible cxr, no new orders, sats on four liters o2 per nc=96-98%, resp rate=20, pt denies sob, tko ivf for meds, pt denies n/v, abd round/soft, hypoactive bt's, ngt placement =wnl, lis, brown output, smear of bm, noted, npo, oral care done, pt denies pain tele- afib, cardizem gtt at 15mg/hr, hr 90-120, bp stable, denies cp inr checked in am, pt turned q2hrs side to side, heels floated, pt inc in brief- changed routinely, pt coop, but forgetful see assessment charting, awaiting am lab results,
[2017-01-01 03:39] LABS: INR 2.28 ratio
[2017-01-01] MEDS: Levalbuterol 1.25 mg/0.5mL Inhalation Solution NEB SCH (07:24)
[2017-01-01] MEDS: Ipratropium 0.02% 0.5 mg/2.5 mL Inhalation Solution NEB SCH (07:24)
[2017-01-01] MEDS ORDERED: Digoxin 0.25 mg/mL 2 mL Inj IV SCH (08:30)
[2017-01-01] MEDS ORDERED: Sodium Biphos-Phos 133 mL Enema RECTAL ONE (08:45)
--- NOTE | 2017-01-01 09:07 | PCM.PNMED ---
Subjective Date of Service Jan 01, 2017 Subjective No acute event overnight. Today, patient states to feel a little better. She denies any cough, SOB, CP, or abdominal pain. She admits to passing a little gas today. No other complaint. Soft restrains in place to prevent pulling NGT. NGT output overnight is about 200mls. Telemetry shows Afib with HR ranges 90s-120s. Exam Vital Signs Vital Sign - Last Date Time Temp Pulse Resp B/P Pulse Ox O2 Delivery O2 Flow Rate FiO2 01/01/17 08:21 128 01/01/17 07:24 16 96 Nasal Cannula 4.00 01/01/17 04:43 36.8 113/43 Intake and Output 12/31/16 12/31/16 01/01/17 Cumulative From/Thru 15:00 23:00 07:00 12/21/16 08:36 - 01/01/17 06:38 Intake Total 1287 ml 733 ml 283 ml 39610 ml Output Total 100 ml 300 ml 9950 ml Balance 1287 ml 633 ml -17 ml 4816 ml Intake Oral 30 ml 4907 ml IV Total 1287 ml 703 ml 283 ml 9839 ml Tube Irrigant 20 ml Output Urine Total 100 ml 9100 ml Gastric Drainage Total 100 ml 200 ml 850 ml # Voids 3 3 36 # Bowel Movements 0 1 Exam General: somnolent but easily arousable, fatigue looking, but in no apparent distress. Resting comfortably on her bed. HEENT: NCAT. PERRLA, EOMI. Anicteric sclera. Necl: supple, No JVD noted, no lymphadenopathy. Lungs: Mild rales and wheezes. Improved. No accessory muscle use. Heart: irregular irregular, no murmur appreciated. Abdomen: soft, mildly distended, no tenderness to palpation, hypoactive bowel sound. Extremities: No edema, cyanosis, or clubbing. Skin: free of rash or lesions. IVs and Medications Medications Reviewed: Medications were reviewed in detail Lab and Diagnostics Result Diagram: 01/01/1730901/01/17309 Microbiology Urinalysis was unremarkable and culture was not indicated. Blood cultures are pending and sputum culture is pending and respiratory viral PCR panel is pending X-Rays, CTs and MRIs PROCEDURE: X-RAY ACUTE ABDOMINAL SERIES IMPRESSION: Gaseous distention of several small bowel loops within the abdomen which may be related to developing small bowel obstruction. Recommend clinical correlation and if indicated repeat examination or CT could be performed for further assessment. Dictated by: Meliton NICOLE Interpreted: Marycruz Dotson MD on 12/28/2016 at 13: 48 X-RAY CHEST ONE VIEW, PORTABLE IMPRESSION: Hadlye B-lines in the peripheral lower lungs, consistent with mild interstitial pulmonary edema, and suggesting early congestive heart failure. Dictated by: Franck Nicholson M.D. on 12/21/2016 at 9:06 PROCEDURE: X-RAY BARIUM SWALLOW ESOPHAGUS IMPRESSION: 1. Trace laryngeal penetration. 2. Severe esophageal dysmotility. 3. Smooth-walled, posterior distal esophageal diverticulum. Dictated by: Meliton NICOLE Interpreted: Syd Avalos MD on 12/23/2016 at 16 :36 Cardiac Echo Impressions Interpretation Summary Left ventricular systolic function is normal without focal wall motion abnormalities with the ejection fraction estimated to be 65-70%. There is mild concentric left ventricular hypertrophy but diastolic function could not be accurately assessed due to probable rapid atrial fibrillation. There has been no significant change since the previous study. The right ventricle is not well visualized but grossly appears normal in size with probable normal systolic function. There is moderate pulmonary hypertension with the right ventricular systolic pressure estimated at 48 mmHg assuming a right atrial pressure of 8 mm Hg, and is similar compared to the previous study. The left atrial size is normal and the right atrium is borderline dilated. Both are unchanged compared to the previous study.There is mild mitral regurgitation and mild to moderate tricuspid regurgitation that are unchanged compared to the previous study. There is no other significant valvular heart disease.The ascending aorta is at the upper limits of normal in size. The patient was in probable atrial fibrillation with heart rates between 105- 133 bpm during the exam which is faster compared to the previous study. Assessment & Plan Carli Woody is an 89-year-old woman with history of diabetes mellitus, hypertension, asthma, pneumonia, congestive heart failure, hyperlipidemia, atrial fibrillation, hypothyroidism and arthritis presenting to [facility] for shortness of breath and wheezing that began the day prior to admission. Currently under treatment for uncontrolled A fib with RVR, severe esophageal dysmotility, and worsened SBO. After discussing with the patient and her family , the joint the decision is to transition her to comfort care today. Will start Morphine drip. Small bowel obstruction, new, and stable. She has not clearly improving or deteriorating with her NG tube. -Likely due to adhesion. Upon further questioning, patient admits that she has had several abdominal surgeries, including a bowel resection for possible colon mass in . She states that she got a "burst gut" at that time. -KUB consistent with SBO. Plan for abdominal CT scan after SBO improves and the Barium contrast is out of her colon. -Continue NPO and NGT. -We discussed options with patient again this morning in the absence of her son and she declared that she is wanting to not continue with her current treatment measures and let nature take its course. Comfort care only. D/C NGT. Severe esophageal dysmotility, presume chronic. -Patient has had issue with aspiration, which has progressively worsened over the course of the hospital stay. -Barium esophagram revealed severe esophageal dysmotility on 12/23. -Followed by GI.Tentative plan for EGD was postponed in light of worsening SBO. -Speech therapy recommended continue with the nectar thick diet and no further recommendation. -We will hold off on further evaluation and to clarify her revised level of care. Chronic atrial fibrillation with rapid ventricular response, POA, improved. -Heart rate has been in the 90s-100s. Appreciate cardiology's input. The plan is to continue with aggressive rate control. Patient was on Diltiazem and Esmolol gtt x1 day on 12/26/16. -Due to patient's NPO status cardiology stopped PO medications and proceeded with Cardizem drip for rate control. Continue to try to wean Cardizem drip as able. -Continue Coumadin per pharmacy. INR therapeutic. -D/C Telemetry monitoring. Acute respiratory failure with hypoxia in the setting of pulmonary hypertension , multifactorial, POA and improving. -Multifactorial, likely related to asthma exacerbation and diastolic heart failure. -Continue O2 as needed. Continue CPAP at night. -Will hold Lasix given low BP. -Patient would like benefit from sleep study as outpatient and likely has MARILYNN diagnosis contributing to moderate pulmonary hypertension Acute on chronic diastolic congestive heart failure, with atrial fibrillation with rapid ventricular response, present times admission. Active improving -Hold Lasix 40 mg IV. Will resume it when her BP improves. -Continue strict I/O. -We will continue with diuresis and BiPAP as needed. -Hold Losartan due to hypotension. Acute asthma exacerbation likely due to URI, present at the time of admission. Active and improving. - Continue Solu-Medrol 60 mg IV every 8 hours - Continue Ipratropium Q6H with Levalbuterol Q8H scheduled as well as Q2H PRN levalbuterol. - Sputum and blood cultures on admission were negative. Diabetes mellitus 2, POA. Uncontrolled. -A1c 6.4. Elevated BG likely partly due to steroid therapy. -D/C NPH 10 units Q8H due to NPO status and BG has been low-normal. Will start Lantus 12 units QHS now -High insulin correctional scale. -Hold home glipizide. Hypothyroidism, chronic. -Levothyroxine was in the setting of poorly controlled A Fib with overcorrected hypothyroidism. This was restarted on 12/26/16. Osteoarthritis (doubt RA) as suggested in the computerized record, chronic and stable. -Continue supportive care Hyperlipidemia , POA and stable - Continue atorvastatin Hypertension. Chronic. Controlled. - Will hold losartan and Furosemide 40mg IV BID due to low BP. Depression and anxiety, present at the time of admission. Active and stable - Continue citalopram History of multiple Urinary tract infections, not currently active - Current urinalysis unremarkable and culture is not indicated. - Monitor closely. Dispo: Uncertain at this time. Will discuss with SW about placement for comfort care tomorrow. Pain Evaluation: Adequate Pain Control GI Prophylaxis: H2 safia VTE Prophylaxis: Theraputic Anticoag with Warfarin Resuscitation Status: DNR/DNI:Do Not Resuscitate/Intubate (Discussed with patient at length and she wishes to be a DO NOT RESUSCITATE/DO NOT INTUBATE.) Pain Evaluation: Adequate Pain Control GI Prophylaxis: H2 safia VTE Prophylaxis: Theraputic Anticoag with Warfarin Resuscitation Status: DNR/DNI:Do Not Resuscitate/Intubate (Discussed with patient at length and she wishes to be a DO NOT RESUSCITATE/DO NOT INTUBATE.) Attending Statement Patient seen and examined with house staff. Agree with all attached documentation. Marquise Orantes DO Jan 01, 2017 08:49 Tristan Hart MD Jan 01, 2017 18:22
[2017-01-01] MEDS: Fluticasone-Salmeterol 100-50 Inhaler INHALATION SCH (09:17)
[2017-01-01] MEDS: Pantoprazole 4 mg/mL 10 mL Inj IVPUSH SCH (09:18)
[2017-01-01] MEDS: Nystatin 100,000 Unit/mL 5 mL Suspension PO SCH ×4 (09:19→22:00)
[2017-01-01] MEDS: Insulin LISPRO 300 Unit/3 mL Inj SUBQ SCH (09:31)
--- NOTE | 2017-01-01 10:28 | PCM.PHAPRO ---
Progress Date of Service: Jan 01, 2017 Warfarin dosing Date Dec 22-Dec 23-Nov 24-Dec 25-Dec 26-Dec 27-Dec 28-Dec 29-Dec 30-Dec 31-Jan 01-Dec INR 2.05 1.77 2.60 3.19 3.05 4.09 3.84 3.86 4.10 3.94 3.06 2.28 INR change -0.28 0.83 0.59 -0.14 1.04 -0.25 0.02 0.24 -0.16 -0.88 -0.78 Warf Dose 2.5MG 2.5MG 0.5MG 0.5MG 0.5MG HOLD HOLD HOLD HOLD HOLD HOLD 0.5MG Madhu Navarro Jan 01, 2017 10:28
--- NOTE | 2017-01-01 12:00 | NUR ---
Comfort care pt's status changed to comfort care. Tele, Dilt drip and NJ tube discontinued. Ongoing care.
--- NOTE | 2017-01-01 12:04 | NUR ---
[facility] notified re: transition to comfort care according to [facility] early notification criteria.
[2017-01-01] MEDS ORDERED: MORPHINE IV PRN (12:10)
[2017-01-01] MEDS ORDERED: SODIUM CHLORIDE 0.9% IV PRN (12:10)
[2017-01-01] MEDS ORDERED: Morphine 100 mg/100 mL NS 100 MG in IV Premix 1 EACH IV PRN (13:49)
--- NOTE | 2017-01-01 15:57 | NUR ---
Social Work: Multidisciplinary Rounds/Continued Discharge Planning D: Pt discussed in am rounds. Pt had not yet decided about comfort measures. MD following up with pt about this. Pt has decided to transition to comfort care. NG has been d/c'd. SEROLOGIST has not yet had a chance to discuss pt's prognosis without treatment. Anticipate that the pt will likely survive longer that 48 hours and will need to return to [facility] however SEROLOGIST will confirm this with MD tomorrow. SEROLOGIST will follow up with pt and family re: discharge planning once plan is confirmed for pt's comfort measures. A: Pt who is on comfort care. P: Evolving; Anticipate pt to return to [facility]. SEROLOGIST to determine pt's comfort measures with MD and team and assist with determination whether pt is appropriate for SNF versus [facility] side possible hospice care. Meagan Willingham MSW
[2017-01-01] MEDS ORDERED: Insulin GLARgine 100 Unit/mL Syringe SUBQ SCH (21:00)
--- NOTE | 2017-01-01 22:27 | NUR ---
Respirations Pt not exhibiting outwardly s/sx of pain. Respirations at 18. Pulse at 89 BPM. Son at bedside states that "she hasn't slept that soundly in a long time, she is usually a restless sleeper." Morphine drip at 2mg/hr. Hourly checks for comfort done.
--- NOTE | 2017-01-02 09:10 | NUR ---
P: Respiratory Distress I: Pt at 0720 this am with son Jacky at bedside. Pt was on morphine 3 mg IV for comfort. Paperwork filled out and pt was not a candidate for organ donation. [place] [facility] [place] Arrangement of [facility]. E: .
--- NOTE | 2017-01-02 12:42 | PCM.ADCARE ---
Advance Care Planning Note Purpose of Encounter: This document hours and advance care planning discussion on the morning of January 01 Parties in Attendance: Patient, son, and multiple other family members. Dr. Orantes Decisional Capacity: Patient is decisional Subjective: She is more lethargic today but comfortable. Objective: Lungs are clear, Abdomen is soft and nontender Goals of Care Determinations: With a family conference on January 01. The patient had indicated that she wanted to withdraw all active measures and allow nature to take its course. Specifically we had a family conference acknowledged her wish to stop active treatment or bowel obstruction and atrial fibrillation or any other medical issues. The patient's son and entire family understood her wishes and were agreement with stopping active treatment measures. Plan Withdraw all active treatment measures including NG tube, diltiazem drip, IV fluids. Start comfort care, morphine drip DO NOT RESUSCITATE DO NOT INTUBATE Plan: As above, comfort care CODE STATUS: DO NOT RESUSCITATE, DO NOT INTUBATE Time Spent Adv.Care Plannin minutes Tristan Hart MD Jan 02, 2017 12:42
--- NOTE | 2017-01-02 15:19 | PCM.DC.MED ---
Discharge Summary Date of Service Jan 02, 2017 Dates of Hospitalization Date of Hospital Admission Dec 21, 2016 at 10:49 Date of Discharge: Jan 02, 2017 Providers: Admitting Physician: Tristan Hart MD Primary Care Physician: Lonnie Kelley DO Attending Physician: Tristan Hart MD Diagnosis at Time of Discharge Diagnosis at Time of Discharge Patient . Small bowel obstruction, new, and stable. Severe esophageal dysmotility, presume chronic. Chronic atrial fibrillation with rapid ventricular response, POA, improved. Acute respiratory failure with hypoxia in the setting of pulmonary hypertension , multifactorial, POA and improving. Acute on chronic diastolic congestive heart failure, with atrial fibrillation with rapid ventricular response, present times admission. Active improving Acute asthma exacerbation likely due to URI, present at the time of admission. Active and improving. Diabetes mellitus 2, POA. Uncontrolled. Hypothyroidism, chronic. Osteoarthritis (doubt RA) as suggested in the computerized record, chronic and stable. Hyperlipidemia , POA and stable Hypertension. Chronic. Controlled. Depression and anxiety, present at the time of admission. Active and stable History of multiple Urinary tract infections, not currently active. Consultations Cardiology, GI Procedures XRay, CTs & MRIs PROCEDURE: X-RAY ACUTE ABDOMINAL SERIES IMPRESSION: Gaseous distention of several small bowel loops within the abdomen which may be related to developing small bowel obstruction. Recommend clinical correlation and if indicated repeat examination or CT could be performed for further assessment. Dictated by: Meliton NICOLE Interpreted: Marycruz Dotson MD on 12/28/2016 at 13: 48 X-RAY CHEST ONE VIEW, PORTABLE IMPRESSION: Hadley B-lines in the peripheral lower lungs, consistent with mild interstitial pulmonary edema, and suggesting early congestive heart failure. Dictated by: Franck Nicholson M.D. on 12/21/2016 at 9:06 PROCEDURE: X-RAY BARIUM SWALLOW ESOPHAGUS IMPRESSION: 1. Trace laryngeal penetration. 2. Severe esophageal dysmotility. 3. Smooth-walled, posterior distal esophageal diverticulum. Dictated by: Meliton NICOLE Interpreted: Syd Avalos MD on 12/23/2016 at 16 :36 Cardiac Echo Impression Interpretation Summary Left ventricular systolic function is normal without focal wall motion abnormalities with the ejection fraction estimated to be 65-70%. There is mild concentric left ventricular hypertrophy but diastolic function could not be accurately assessed due to probable rapid atrial fibrillation. There has been no significant change since the previous study. The right ventricle is not well visualized but grossly appears normal in size with probable normal systolic function. There is moderate pulmonary hypertension with the right ventricular systolic pressure estimated at 48 mmHg assuming a right atrial pressure of 8 mm Hg, and is similar compared to the previous study. The left atrial size is normal and the right atrium is borderline dilated. Both are unchanged compared to the previous study.There is mild mitral regurgitation and mild to moderate tricuspid regurgitation that are unchanged compared to the previous study. There is no other significant valvular heart disease.The ascending aorta is at the upper limits of normal in size. The patient was in probable atrial fibrillation with heart rates between 105- 133 bpm during the exam which is faster compared to the previous study. Brief History Patient is a very pleasant 89-year-old white female with history of diabetes mellitus, hypertension, asthma, pneumonia, congestive heart failure, hyperlipidemia, atrial fibrillation, hypothyroidism and arthritis which I believe is probably osteoarthritis and not rheumatoid arthritis who was brought to [facility] emergency department for shortness of breath and wheezing that began the day prior to admission. The patient lives at the [facility] at [place] in [place] and yesterday the patient went to the dining room to eat with her walker and she became very short of breath. After eating she went back to her room and wanted to start her nebulizer but could not make it to her nebulizer. She then grabbed her "puffer" and went to bed. Usually that works, however this time it did not. She stayed in bed and due to shortness of breath called for help. An aide from [place] came up and gave her a puff of a rescue inhaler. He then left. The patient did 3 nebulizer treatments thereafter went to bed and was still unable to breathe all night. This morning she called her son and was not able to get ahold of him initially aides from [place] came up to her room and called EMS to bring her to the hospital she was unable to get ahold of her son and he agreed that she should do. She came to [facility] emergency room and was evaluated by Dr. Mina Reina who treated the patient with DuoNeb treatments 2 and patient received 125 mg of methylprednisolone, in route to the hospital, and Dr. Reina gave 40 mg Lasix IV. Patient's chest x-ray showed curly B-lines in the peripheral lower lungs consistent with mild interstitial pulmonary edema and suggesting early congestive heart failure. Patient's white blood cell count was the upper limit of normal at 11,000. Also, the patient had no fever and was given no antibiotics. However, due to the congestive heart failure, shortness of breath, and acute asthma exacerbation the patient was admitted to the hospitalist service for further evaluation treatment. Hospital Course Carli Woody is an 89-year-old woman with history of diabetes mellitus, hypertension, asthma, pneumonia, congestive heart failure, hyperlipidemia, atrial fibrillation, hypothyroidism and arthritis presenting to [facility] for shortness of breath and wheezing that began the day prior to admission. Currently under treatment for uncontrolled A fib with RVR, severe esophageal dysmotility, and worsened SBO. After discussing with the patient and her family , the joint the decision is to transition her to comfort care on 01/01/10. D/C all treatment and patient was on Morphine drip. Patient at 0720 on 01/02/17 with her son by the bedside. Small bowel obstruction, new, and stable. She has not clearly improving or deteriorating with her NG tube. -Likely due to adhesion. Upon further questioning, patient admits that she has had several abdominal surgeries, including a bowel resection for possible colon mass in . She states that she got a "burst gut" at that time. -KUB consistent with SBO. Plan for abdominal CT scan after SBO improves and the Barium contrast is out of her colon. -Continue NPO and NGT. -We discussed options with patient again this morning in the absence of her son and she declared that she is wanting to not continue with her current treatment measures and let nature take its course. Comfort care only. D/C NGT. Severe esophageal dysmotility, presume chronic. -Patient has had issue with aspiration, which has progressively worsened over the course of the hospital stay. -Barium esophagram revealed severe esophageal dysmotility on 12/23. -Followed by GI.Tentative plan for EGD was postponed in light of worsening SBO. -Speech therapy recommended continue with the nectar thick diet and no further recommendation. -We will hold off on further evaluation and to clarify her revised level of care. Chronic atrial fibrillation with rapid ventricular response, POA, improved. -Heart rate has been in the 90s-100s. Appreciate cardiology's input. The plan is to continue with aggressive rate control. Patient was on Diltiazem and Esmolol gtt x1 day on 12/26/16. -Due to patient's NPO status cardiology stopped PO medications and proceeded with Cardizem drip for rate control. Continue to try to wean Cardizem drip as able. -Continue Coumadin per pharmacy. INR therapeutic. -D/C Telemetry monitoring. Acute respiratory failure with hypoxia in the setting of pulmonary hypertension , multifactorial, POA and improving. -Multifactorial, likely related to asthma exacerbation and diastolic heart failure. -Continue O2 as needed. Continue CPAP at night. -Will hold Lasix given low BP. -Patient would like benefit from sleep study as outpatient and likely has MARILYNN diagnosis contributing to moderate pulmonary hypertension Acute on chronic diastolic congestive heart failure, with atrial fibrillation with rapid ventricular response, present times admission. Active improving -Hold Lasix 40 mg IV. Will resume it when her BP improves. -Continue strict I/O. -We will continue with diuresis and BiPAP as needed. -Hold Losartan due to hypotension. Acute asthma exacerbation likely due to URI, present at the time of admission. Active and improving. - Continue Solu-Medrol 60 mg IV every 8 hours - Continue Ipratropium Q6H with Levalbuterol Q8H scheduled as well as Q2H PRN levalbuterol. - Sputum and blood cultures on admission were negative. Diabetes mellitus 2, POA. Uncontrolled. -A1c 6.4. Elevated BG likely partly due to steroid therapy. -D/C NPH 10 units Q8H due to NPO status and BG has been low-normal. Will start Lantus 12 units QHS now -High insulin correctional scale. -Hold home glipizide. Hypothyroidism, chronic. -Levothyroxine was in the setting of poorly controlled A Fib with overcorrected hypothyroidism. This was restarted on 12/26/16. Osteoarthritis (doubt RA) as suggested in the computerized record, chronic and stable. -Continue supportive care Hyperlipidemia , POA and stable - Continue atorvastatin Hypertension. Chronic. Controlled. - Will hold losartan and Furosemide 40mg IV BID due to low BP. Depression and anxiety, present at the time of admission. Active and stable - Continue citalopram History of multiple Urinary tract infections, not currently active - Current urinalysis unremarkable and culture is not indicated. - Monitor closely. Pain Evaluation: Adequate Pain Control GI Prophylaxis: H2 safia VTE Prophylaxis: Theraputic Anticoag with Warfarin Resuscitation Status: DNR/DNI:Do Not Resuscitate/Intubate (Discussed with patient at length and she wishes to be a DO NOT RESUSCITATE/DO NOT INTUBATE.) Exam Vital Signs (Last) Date Time Temp Pulse Resp B/P Pulse Ox O2 Delivery O2 Flow Rate FiO2 01/01/17 22:25 89 01/01/17 10:51 36.7 34 118/41 94 Nasal Cannula 4.00 Exam Patient . Test 12/21/16 08:59 12/21/16 16:43 12/22/16 03:15 12/25/16 02:40 Hemoglobin A1c 6.4% (4.8-5.6) Troponin T < 0.010ug/L (0.0-0.011) Pro-B-Type Natriuretic Peptide 3160pg/mL (0-738) Urine Color Straw (YELLOW) Urine Appearance Clear (CLEAR,HAZY) Urine pH 5.0 (5.0-8.0) Urine Specific Spicer 1.010 (1.003-1.035) Urine Protein Negativemg/dL (NEG,TRACE) Urine Glucose (UA) Negativemg/dL (NEGATIVE) Urine Ketones Negativemg/dL (NEGATIVE) Urine Occult Blood Negative (NEGATIVE) Urine Nitrite Negative (NEGATIVE) Urine Bilirubin Negative (NEGATIVE) Urine Urobilinogen Normalmg/dL (NORMAL) Urine Leukocyte Esterase Negative (NEGATIVE) Urine RBC 0-2/hpf (0-2) Urine WBC 0-5/hpf (0-5) Urine Epithelial Cells Occasional/hpf (NONE-MOD) Urine Crystals None seen (NONE SEEN) Urine Bacteria None/hpf (NONE-FEW) Urine Hyaline Casts None/lpf (NONE) Urine Granular Casts None seen (NONE SEEN) Urine Waxy Casts None seen (NONE SEEN) Urine Red Blood Cell Casts None seen (NONE SEEN) Urine White Blood Cell Casts None seen (NONE SEEN) Urine Mucus None seen (None Seen) Urine Trichomonas None seen (NONE SEEN) Urine Yeast None (NONE SEEN) Urinalysis Comment None Urine Culture Reflexed Not indicated Thyroid Stimulating Hormone (TSH) 0.368uIU/mL (0.450-4.500) Phosphorus Level 3.7mg/dL (2.5-4.9) Test 7/3/17 03:25 12/29/16 04:00 12/30/16 12:06 12/31/16 03:05 Free Thyroxine 1.28ng/dL (0.82-1.77) Lactic Acid Level 1.2mmol/L (0.4-2.0) Lipase 9U/L (13-60) Procalcitonin 0.06ng/mL (0.00-0.08) Digoxin Level 1.0nG/mL (0.9-2.0) Neutrophils (%) (Auto) 95.3% (40-74) Lymphocytes (%) (Auto) 1.1% (14-46) Monocytes (%) (Auto) 3.2% (4-12) Eosinophils (%) (Auto) 0% (0-5) Basophils (%) (Auto) 0.1% (0-3) Total Bilirubin 1.6mg/dL (0.0-1.2) Aspartate Amino Transf (AST/SGOT) 22U/L (0-50) Alanine Aminotransferase (ALT/SGPT) 26U/L (0-32) Alkaline Phosphatase 68U/L (25-165) Total Protein 5.9g/dL (6.4-8.4) Albumin 3.2g/dL (3.4-5.0) Test 01/01/17 03:10 White Blood Count 12.5th/mm3 (3.8-10.1) Red Blood Count 3.87mil/mm3 (3.90-5.20) Hemoglobin 11.5g/dL (12.0-15.6) Hematocrit 35.9% (35.0-46.0) Mean Corpuscular Volume 92.8fL (81-100) Mean Corpuscular Hemoglobin 29.7pg (27.0-35.0) Mean Corpuscular Hemoglobin Concent 32.0% (32.0-37.0) Red Cell Distribution Width 15.2% (12.3-15.4) Platelet Count 205bil/L (150-400) Prothrombin Time 24.8sec (8.1-12.5) Prothromb Time International Ratio 2.28ratio Sodium Level 147mEq/L (134-144) Potassium Level 4.3mEq/L (3.5-5.2) Chloride Level 109mEq/L (97-108) Carbon Dioxide Level 20mmol/L (18-29) Blood Urea Nitrogen 51mg/dL (8-27) Creatinine 1.27mg/dL (0.57-1.00) Estimat Glomerular Filtration Rate 57mL/min (>59) Glucose Level 203mg/dL (60-99) Calcium Level 8.7mg/dL (8.5-10.1) Magnesium Level 2.6mg/dL (1.6-2.6) Microbiology Results Urinalysis was unremarkable and culture was not indicated. Blood cultures are pending and sputum culture is pending and respiratory viral PCR panel is pending Discharge Medications Discharge Medications ([areds 2]) 1 CAPSULE PO DAILY (Reported) Aspirin (Aspirin) 81 Mg Tablet 81 MG PO DAILY (Reported) Atorvastatin (Lipitor) 10 Mg Tab 20 MG PO DAILY (Reported) Budesonide/Formoterol 160-4.5 mcg Inh (Symbicort 160-4.5 mcg Inh) 120 Puff Inhaler 2 PUFFS INHALATION BID (Reported) Citalopram (Citalopram) 20 Mg Tablet 20 MG PO DAILY (Reported) Furosemide (Furosemide) 40 Mg Tablet 40 MG PO DAILY (Reported) Glipizide (Glipizide) 5 Mg Tablet 2.5 MG PO DAILY (Reported) Ipratropium/Albuterol Sulfate (Iprat-Albut 0.5-3(2.5) mg/3 mL Inhalant Soln) 3 Ml Ampul.neb 3 ML IH Q6 (Reported) Levothyroxine (Levothyroxine) 88 Mcg Tablet 88 MCG PO DAILY (Reported) Loratadine (Claritin) 10 Mg Capsule 10 MG PO DAILY (Reported) Losartan Potassium (Losartan Potassium) 25 Mg Tablet 25 MG PO BID (Reported) Magnesium Chloride (Slow-Mag) 64 Mg Tablet 1 TABLET PO BID (Reported) Memantine (Namenda) 10 Mg Tablet 5 MG PO BID (Reported) Metoprolol Succinate ER (Metoprolol Succinate ER) 100 Mg Tab.er.24h 100 MG PO DAILY (Reported) Warfarin Sodium (Warfarin Sodium) 2.5 Mg Tablet 2.5 MG PO DAILY (Reported) As needed Albuterol HFA (Proair HFA) 8.5 Gm Hfa.aer.ad 2 PUFFS INHALATION QID PRN PRN For Shortness of Breath (Reported) Hydrocodone-Acetaminophen 5-325 mg (Hydrocodone-Acetaminophen 5-325 mg) 1 Each Tablet 1 EACH PO Q4 PRN PRN For Pain (Reported) Attending Statement Patient seen and examined with house staff. Agree with all attached documentation. Marquise Orantes DO Jan 02, 2017 15:19 Tristan Hart MD Jan 02, 2017 17:46
== END 2017-01-02 07:20 | disposition expired | DRG 291 ==
LOC: SED 08:35 → MOC 10:49 → PCC 19:45
PROVIDERS: ADMIT Hospitalist; ATTEND Internal Medicine Infectious Disease
DX: I50.33 Acute on chronic diastolic (congestive) heart failure (principal); J96.01 Acute respiratory failure with hypoxia; J45.901 Unspecified asthma with (acute) exacerbation; J44.1 Chronic obstructive pulmonary disease with (acute) exacerbation; K56.5 Intestinal adhesions [bands] with obstruction (postinfection); Z79.01 Long term (current) use of anticoagulants; I48.2 Chronic atrial fibrillation; G47.33 Obstructive sleep apnea (adult) (pediatric); F51.9 Sleep disorder not due to a substance or known physiological condition, unspecified; I27.2 Other secondary pulmonary hypertension; K22.4 Dyskinesia of esophagus; E11.9 Type 2 diabetes mellitus without complications; I10 Essential (primary) hypertension; E78.5 Hyperlipidemia, unspecified; E03.9 Hypothyroidism, unspecified; Z79.84 Long term (current) use of oral hypoglycemic drugs; Z87.891 Personal history of nicotine dependence; F41.8 Other specified anxiety disorders; Z87.440 Personal history of urinary (tract) infections; Z66 Do not resuscitate